=== PATIENT | male | born 1940 | race Caucasian/White ===

== ENCOUNTER 2016-09-28 10:48 | Inpatient (IN) | payer MEDICARE ==
[~2016-09-28] VITALS: Ht 177.8 cm; Wt 76.3 kg
[2016-09-28] MEDS ORDERED: SIMV20TA3 PO (11:50)
[2016-09-28] MEDS ORDERED: METO25TA4 PO (11:56)
[2016-09-28] MEDS ORDERED: ASPI81TA2 PO (11:57)
[2016-09-28 12:21] LABS: BASO % 0 % (0-3); EOS % 0 % (0-3); HEMATOCRIT 40.3 % (39.0-53.0); HEMOGLOBIN 13.3 g/dL (13.0-17.5); LYMPH # 0.4 x10^3/uL (1.0-4.8); LYMPH % 3 % (24-48); MEAN CORPUSCULAR HEMOGLOBIN 30 pg (25-35); MEAN CORPUSCULAR HGB CONC 33 g/dL (31-37); MEAN CORPUSCULAR VOLUME 92 fL (79-100); MONO % 1 % (0-9); NEUT % 96 % (31-73); PLATELET COUNT 162 x10^3/uL (140-400); RED BLOOD COUNT 4.39 x10^6/uL (4.30-5.70); RED CELL DISTRIBUTION WIDTH 13.2 % (11.5-14.5); WHITE BLOOD COUNT 14.2 x10^3/uL (4.0-11.0)
[2016-09-28 12:28] LABS: CALCIUM 9.2 mg/dL (8.5-10.1); CREATININE 1.2 mg/dL (0.7-1.3); GFR 59.3; POTASSIUM 3.6 mmol/L (3.5-5.1)
[2016-09-28 12:34] LABS: ALBUMIN 3.9 g/dL (3.4-5.0); TOTAL BILIRUBIN 2.2 mg/dL (0.2-1.0); TOTAL PROTEIN 7.7 g/dL (6.4-8.2)
--- NOTE | 2016-09-28 12:42 | EKG ---
[facility] [address] [place] [address] Test Date: 2016-09-28 Test Time: 11:36:43 Pat Name: BING ALVAREZ Department: Room: Gender: M [employer] T[employer]: : 1940 Requested By: HASEEB ACUÑA Order Number: [id number] Reading MD: Rito Reese Measurements Intervals [place] Rate: 74 P: 59 MS: 270 QRS: 48 QRSD: 76 T: 73 QT: 396 QTc: 440 Interpretive Statements SINUS RHYTHM PROLONGED MS INTERVAL Electronically Signed On 10-10-2016 12:06:35 CDT by Rito Reese
[2016-09-28] MEDS ORDERED: IV NORMAL SALINE 500ML BAG 500 ML IV ONE (12:45)
[2016-09-28] MEDS ORDERED: IOHEXOL 300 MG/ML 75 ML VIAL IV ONE (12:45)
[2016-09-28] MEDS ORDERED: ONDANSETRON PF 4 MG/2 ML VIAL. IV ONE (12:45)
[2016-09-28] MEDS ORDERED: FENTANYL PF 100 MCG/2 ML VIAL. IV PRN ×2 (12:45→15:15)
--- NOTE | 2016-09-28 12:48 | ED.ADGEN ---
Past Medical History Past Medical History: Constipation, High Cholesterol, Hypertension, Other Additional Past Medical Histor: sick sinus syndrome? Past Surgical History: Other Additional Past Surgical Histo: left shoulder, hernia Alcohol Use: None Drug Use: None Adult General Chief Complaint Chief Complaint: ABDOMINAL PAIN HPI HPI Patient is a 75 year old man, history of hypertension, hypercholesterolemia, GERD, who presents to the emergency department with a complaint of abdominal pain that began around 7:30 this morning. Patient states he first noted the pain when he woke up, describes it as a "pressure", and an aching sensation located in his epigastric region and radiating to the sides. He denies any chest pain or shortness of breath, any fevers or chills, any sick contacts or bad food exposures. He states that he had several episodes of nausea and vomiting, food and fluid, no bloody emesis or bloody stool. His last bowel was this morning and was "small". He states he ate some yogurt hoping that the pain would get better after eating, but this did not help, the pain is waxing and waning since that time. He denies any urinary complaints, any injuries, any similar symptoms previously. No recent travel, patient is status post cholecystectomy in 2011, and appendectomy many years ago. Review of Systems Review of Systems Constitutional: Denies fever or chills. [] Eyes: Denies change in visual acuity. [] HENT: Denies nasal congestion or sore throat. [] Respiratory: Denies cough or shortness of breath. [] Cardiovascular: Denies chest pain or edema. [] GI: Abdominal pain and pressure, nausea, vomiting, no bloody stools or diarrhea. : Denies dysuria. [] Musculoskeletal: Denies back pain or joint pain. [] Integument: Denies rash. [] Neurologic: Denies headache, focal weakness or sensory changes. [] Endocrine: Denies polyuria or polydipsia. [] Lymphatic: Denies swollen glands. [] Psychiatric: Denies depression or anxiety. [] Current Medications Current Medications Current Medications Medications (Trade) Dose Ordered Sig/Soo Start Time Stop Time Status Last Admin Dose Admin Ceftriaxone Sodium (Rocephin 1gm Ivpb For Omni) 50 ml @ 100 mls/hr 1X ONCE 09/28/16 14:30 09/28/16 14:59 DC 09/28/16 15:15 100 MLS/HR Fentanyl Citrate (Fentanyl 2ml Vial) 25 mcg PRN Q15MIN PRN 09/28/16 12:45 09/29/16 12:44 09/28/16 13:13 25 MCG Fentanyl Citrate 50 mcg 50 mcg PRN Q1HR PRN 09/28/16 15:15 09/29/16 15:14 Info 1 each 1 each PRN DAILY PRN 09/28/16 13:00 09/30/16 12:59 Iohexol (Omnipaque 300 Mg/ml) 60 ml 1X ONCE 09/28/16 12:45 09/28/16 12:46 DC 09/28/16 12:52 60 ML Metronidazole 100 ml @ 100 mls/hr 1X ONCE 09/28/16 14:30 09/28/16 15:29 DC 09/28/16 15:14 100 MLS/HR Ondansetron HCl (Zofran) 4 mg PRN Q8HRS PRN 09/28/16 15:15 09/29/16 15:14 Sodium Chloride (Iv Sodium Chloride 0.9% 500ml Bag) 500 ml @ 500 mls/hr 1X ONCE 09/28/16 12:45 09/28/16 13:44 DC 09/28/16 13:13 500 MLS/HR Sodium Chloride (Iv Sodium Chloride 0.9% 1000ml Bag) 1,000 ml @ 100 mls/hr Q10H 09/28/16 15:15 09/29/16 15:14 Allergies Allergies Allergies Coded Allergies Type Severity Reaction Last Updated Verified No Known Drug Allergies 09/28/16 No Physical Exam Physical Exam Constitutional: Well developed, well nourished, uncomfortable secondary to pain , non-toxic appearance. [] HENT: Normocephalic, atraumatic, bilateral external ears normal, oropharynx moist, no oral exudates, nose normal. [] Eyes: PERRLA, EOMI, conjunctiva normal, no discharge. [] Neck: Normal range of motion, no tenderness, supple, no stridor. [] Cardiovascular:Heart rate regular rhythm, no murmur, S1, S2, rubs or gallops. Soft heart sounds. [] Lungs & Thorax: Bilateral breath sounds clear to auscultation, no wheezing, rhonchi, rales. No chest wall crepitus or tenderness. [] Abdomen: Bowel sounds normal, soft, tenderness to palpation in the epigastric region and periumbilical region, no rebound or rigidity, no guarding, no masses , no pulsatile masses. [] Skin: Warm, dry, no erythema, no rash. [] Back: No tenderness, no CVA tenderness. [] Extremities: No tenderness, no cyanosis, no clubbing, ROM intact, no edema. Negative Homans sign. [] Neurologic: Alert and oriented X 3, normal motor function, normal sensory function, no focal deficits noted. [] Psychologic: Affect normal, judgement normal, mood normal. [] Current Patient Data Vital Signs Vital Signs Date Time Temp Pulse Resp B/P Pulse Ox O2 Delivery O2 Flow Rate FiO2 09/28/16 13:13 19 96 Room Air 09/28/16 11:42 97.7 75 141/63 97.7 Lab Values Laboratory Tests Test 09/28/16 11:41 09/28/16 13:15 09/28/16 13:20 White Blood Count 14.2x10^3/uL (4.0-11.0) H Red Blood Count 4.39x10^6/uL (4.30-5.70) Hemoglobin 13.3g/dL (13.0-17.5) Hematocrit 40.3% (39.0-53.0) Mean Corpuscular Volume 92fL (79-100) Mean Corpuscular Hemoglobin 30pg (25-35) Mean Corpuscular Hemoglobin Concent 33g/dL (31-37) Red Cell Distribution Width 13.2% (11.5-14.5) Platelet Count 162x10^3/uL (140-400) Neutrophils (%) (Auto) 96% (31-73) H Lymphocytes (%) (Auto) 3% (24-48) L Monocytes (%) (Auto) 1% (0-9) Eosinophils (%) (Auto) 0% (0-3) Basophils (%) (Auto) 0% (0-3) Neutrophils # (Auto) 13.6x10^3uL (1.8-7.7) H Lymphocytes # (Auto) 0.4x10^3/uL (1.0-4.8) L Monocytes # (Auto) 0.1x10^3/uL (0.0-1.1) Eosinophils # (Auto) 0.0x10^3/uL (0.0-0.7) Basophils # (Auto) 0.0x10^3/uL (0.0-0.2) Segmented Neutrophils % 74% (35-66) H Band Neutrophils % 25% (0-9) H Eosinophils % 1% (0-5) Platelet Estimate Adequate (ADEQUATE) Sodium Level 142mmol/L (136-145) Potassium Level 3.6mmol/L (3.5-5.1) Chloride Level 103mmol/L (98-107) Carbon Dioxide Level 27mmol/L (21-32) Anion Gap 12 (6-14) Blood Urea Nitrogen 18mg/dL (8-26) Creatinine 1.2mg/dL (0.7-1.3) Estimated GFR (Cockcroft-Gault) 59.3 BUN/Creatinine Ratio 15 (6-20) Glucose Level 132mg/dL (70-99) H Calcium Level 9.2mg/dL (8.5-10.1) Total Bilirubin 2.2mg/dL (0.2-1.0) H Aspartate Amino Transferase (AST) 347U/L (15-37) H Alanine Aminotransferase (ALT) 239U/L (16-63) H Alkaline Phosphatase 104U/L (46-116) Troponin I Quantitative < 0.017ng/mL (0.000-0.055) Total Protein 7.7g/dL (6.4-8.2) Albumin 3.9g/dL (3.4-5.0) Albumin/Globulin Ratio 1.0 (1.0-1.7) Lipase 230U/L (73-393) Lactic Acid Level 3.5mmol/L (0.4-2.0) H Urine Collection Type Unknown Urine Color Yellow Urine Clarity Clear Urine pH 7.5 Urine Specific [place] 1.025 Urine Protein Negativemg/dL (NEG-TRACE) Urine Glucose (UA) Negativemg/dL (NEG) Urine Ketones (Stick) Negativemg/dL (NEG) Urine Blood Negative (NEG) Urine Nitrite Negative (NEG) Urine Bilirubin Negative (NEG) Urine Urobilinogen Dipstick 0.2mg/dL (0.2 mg/dL) Urine Leukocyte Esterase Negative (NEG) Urine RBC 1-2/HPF (0-2) Urine WBC 0/HPF (0-4) Urine Squamous Epithelial Cells Occ/LPF Urine Bacteria 0/HPF (0-FEW) Urine Mucus Slight/LPF Urine Opiates Screen Neg (NEG) Urine Methadone Screen Neg (NEG) Urine Barbiturates Neg (NEG) Urine Phencyclidine Screen Neg (NEG) Urine Amphetamine/Methamphetamine Neg (NEG) Urine Benzodiazepines Screen Neg (NEG) Urine Cocaine Screen Neg (NEG) Urine Cannabinoids Screen Neg (NEG) Urine Ethyl Alcohol Neg (NEG) Laboratory Tests 09/28/16 11:41 Laboratory Tests 09/28/16 11:41 EKG EKG EC: Sinus rhythm, heart rate 74 bpm, upright axis, QTC of 440, MD 1-70, QRS is 76, no ST elevations or depressions, no evidence of acute ST abnormalities aside from slightly prolonged MD interval. As interpreted by me. Radiology/Procedures Radiology/Procedures [] [facility] [address] [place], [place] [id number] IMAGING REPORT Signed PATIENT: BING ALVAREZ ACCOUNT: [id number] : 1940 LOCATION: ER AGE: 75 SEX: M EXAM STATUS: REG ER ORD. PHYSICIAN: HASEEB ACUÑA DO REASON: abd pain/n/v PROCEDURE: CT ABD PELV W/ IV CONTRST ONLY CT of the abdomen and pelvis with contrast, 09/28/2016: History: Abdominal pain, nausea and vomiting Multidetector CT imaging was performed following an IV bolus injection of iodinated contrast material. No oral contrast material was administered as requested. Coronary artery calcifications are noted. The gallbladder is surgically absent. No hepatic mass is seen. There is considerable intrahepatic and extrahepatic biliary ductal dilatation. This was also evident on an MRCP study from 09/15/2011. The mid common bile duct currently measures approximately 21 mm in width. It measured 16 mm in width on the previous study. The common duct is dilated down into the pancreatic head to the level of the ampulla. No mass or dense common duct calculus is seen at that level. The pancreas is otherwise unremarkable. The spleen is of normal size. The kidneys show no evidence of obstruction or mass. There is moderate aortoiliac calcific plaquing without evidence of aneurysm. No abdominal or pelvic adenopathy is seen. There is a moderate amount of stool in the rectum. The other loops of large and small bowel are not dilated. There are a few scattered colonic diverticula. No paracolonic inflammatory process is seen. The appendix is not visualized. No dilated appendix is evident. No free fluid or free air is evident in the abdomen or pelvis. Moderate multilevel degenerative changes are present in the spine. There are severe degenerative changes at both hip joints. IMPRESSION: 1. Ongoing intrahepatic and extrahepatic biliary ductal dilatation which appears to have progressed slightly since 2011. No pancreatic head region mass or dense common bile duct calculus is seen. An occult distal common bile duct calculus or stricture cannot be excluded. 2. Colonic diverticulosis. 3. Mild fecal impaction the rectum. PQRS Compliance Statement: One or more of the following individualized dose reduction techniques were utilized for this examination: 1. Automated exposure control 2. Adjustment of the mA and/or kV according to patient size 3. Use of iterative reconstruction technique DICTATED and SIGNED BY: LIANNE TATE MD DATE: 09/28/16 3830 CC: HASEEB ACUÑA DO; JANAE GONGORA MD ~ Course & Med Decision Making Course & Med Decision Making Pertinent Labs and Imaging studies reviewed. (See chart for details) Patient agreeable to receiving CT of abdomen and pelvis, along with laboratory studies, antiemetics and pain medication. CT of abdomen and pelvis reveals a possible occult distal common bile duct calculus or stricture. Patient also noted to have elevated LFTs, with a bilirubin of 2.2. Patient with leukocytosis of 14.2, with a bandemia of 25%. No other source of infection or other concerning findings identified, he remains afebrile, with stable vital signs in the emergency department. Findings as above discussed with Emma, nurse practitioner for Dr. Hunt, who relayed this information to Dr. Hunt as he was in a procedure. Dr. Hunt recommends the patient to undergo an MRCP, the patient does not have any contraindications, patient is agreeable for addition to the hospital for continued antiemetics, IV fluids, analgesia, due to patient' s bandemia, antibiotics also started prophylactically with blood cultures pending. Findings as above discussed with Dr. Koehler, call for the patient's primary care provider, who is in agreement with plan as stated above, patient accepted to his service as a full admission to the medical telemetry floor for monitoring and plan as above, will continue with course as stated, bridge orders entered per discussion. Dragon Disclaimer Dragon Disclaimer This electronic medical record was generated, in whole or in part, using a voice recognition dictation system. Departure Impression: Primary Impression: Abdominal pain Disposition: ADMITTED INPATIENT Admitting Physician: Bello Koehler Condition: IMPROVED HASEEB ACUÑA DO Sep 28, 2016 12:48
[2016-09-28 12:54] LABS: % EOS 1 % (0-5)
[2016-09-28 12:55] LABS: PLT ESTIMATE ADEQUATE (ADEQUATE)
[2016-09-28] MEDS ORDERED: CONTRAST GIVEN MC PRN (13:00)
--- NOTE | 2016-09-28 13:33 | RAD ---
CT of the abdomen and pelvis with contrast, 09/28/2016: History: Abdominal pain, nausea and vomiting Multidetector CT imaging was performed following an IV bolus injection of iodinated contrast material. No oral contrast material was administered as requested. Coronary artery calcifications are noted. The gallbladder is surgically absent. No hepatic mass is seen. There is considerable intrahepatic and extrahepatic biliary ductal dilatation. This was also evident on an MRCP study from 09/15/2011. The mid common bile duct currently measures approximately 21 mm in width. It measured 16 mm in width on the previous study. The common duct is dilated down into the pancreatic head to the level of the ampulla. No mass or dense common duct calculus is seen at that level. The pancreas is otherwise unremarkable. The spleen is of normal size. The kidneys show no evidence of obstruction or mass. There is moderate aortoiliac calcific plaquing without evidence of aneurysm. No abdominal or pelvic adenopathy is seen. There is a moderate amount of stool in the rectum. The other loops of large and small bowel are not dilated. There are a few scattered colonic diverticula. No paracolonic inflammatory process is seen. The appendix is not visualized. No dilated appendix is evident. No free fluid or free air is evident in the abdomen or pelvis. Moderate multilevel degenerative changes are present in the spine. There are severe degenerative changes at both hip joints. IMPRESSION: 1. Ongoing intrahepatic and extrahepatic biliary ductal dilatation which appears to have progressed slightly since 2011. No pancreatic head region mass or dense common bile duct calculus is seen. An occult distal common bile duct calculus or stricture cannot be excluded. 2. Colonic diverticulosis. 3. Mild fecal impaction the rectum. PQRS Compliance Statement: One or more of the following individualized dose reduction techniques were utilized for this examination: 1. Automated exposure control 2. Adjustment of the mA and/or kV according to patient size 3. Use of iterative reconstruction technique
[2016-09-28 13:48] LABS: BILIRUBIN,URINE NEGATIVE (NEG); GLUCOSE,URINE NEGATIVE (NEG); NITRITE,URINE NEGATIVE (NEG); PH,URINE 7.5; PROTEIN,URINE NEGATIVE (NEG-TRACE); UROBILINOGEN,URINE 0.2 mg/dL (0.2 mg/dL)
[2016-09-28 13:52] LABS: BARBITURATES NEG (NEG); BENZODIAZEPINES NEG (NEG); CANNABINOIDS NEG (NEG); COCAINE NEG (NEG); METHADONE NEG (NEG); OPIATES NEG (NEG); PHENCYCLIDINE NEG (NEG)
[2016-09-28 13:53] LABS: ETHANOL, URINE NEG (NEG)
[2016-09-28 14:06] LABS: BACTERIA,URINE 0 /HPF (0-FEW); SQUAMOUS EPITHELIAL CELL,UR OCC /LPF; WBC,URINE 0 /HPF (0-4)
[2016-09-28] MEDS ORDERED: CEFTRIAXONE 1GM IVPB FOR OMNI 50 ML IV ONE (14:30)
[2016-09-28] MEDS ORDERED: METRONIDAZOLE 500mg PREMIX 100 ML IV ONE (14:30)
[2016-09-28] MEDS ORDERED: ONDANSETRON PF 4 MG/2 ML VIAL. IV PRN (15:15)
--- NOTE | 2016-09-28 18:13 | ACF ---
Admission Forms Criteria ABDOMINAL PAIN Clinical Indications for Admission to Inpatient Care (Place 'X' for any and all applicable criteria): Admission is indicated for ANY ONE of the following(1)(2)(3)(4)(5): [X]I. Inpatient admission required rather than observation care (Also use Abdominal Pain: Observation Care, as appropriate) because of ANY ONE of the following: [ ]a) Severe pain requiring acute inpatient management [X]b) Identification of etiology/finding that requires inpatient care (eg, aortic dissection, free air) [ ]c) Absent bowel sounds with complete ileus(6) [ ]d) Suspected toxic megacolon [ ]e) Severe electrolyte abnormalities requiring inpatient care [ ]f) High fever or infection requiring inpatient admission as indicated by ANY ONE of following(7)(8): [ ] i) Appropriate outpatient or observational care antimicrobial treatment unavailable, not effective, or not feasible [ ] ii) Documented bacteremia [ ] iii) Temperature > 104.9 degrees F (oral) [ ] iv) T >103.1 F (oral) or < 96.8 F(rectal) that does not respond to all emergency treatment measures [ ]g) Signs of intestinal obstruction [B] [ ]h) Hemodynamic instability [ ]i) IV fluid to replace significant ongoing losses (greater than 3 L/m2 per day) (12)(13) [ ]j) Percutaneous or open drainage (eg, abscess, biliary tract ) procedures [ ]k) Parenteral nutrition regimen that must be implemented on inpatient basis [ ]l) Other condition,treatment or monitoring requiring inpatient admission. [ ]II. Peritoneal signs present [ ]III. Surgery needed that cannot be performed on an ambulatory basis. [ ]IV. Evaluation requires patient to not eat or drink for extended period ( eg, more than 24 hours). [ ]V. Contraindications and/or Inappropriate clinical situations for Observational Care in patients with abdominal pain, when ANY ONE of the following is required: [ ]a) Thorough evaluation is required to prevent catastrophic events due to delays in diagnosing (e.g.Mesenteric ischemia) 1,3 [ ]b) Patient with severe pathology or with chronic symptoms unlikely to improve in the ED stay (3) [ ]. General contraindications and/or Inappropriate clinical situations for Observational Care in patients with abdominal pain, when ANY ONE of the following is required: [ ]a) Prediction of prolongation of LOS based on ANY ONE of the following may be considered as a contraindication for observational care 2, 3, 4, 5, 6, 7, 8, 9, 10, 11 [ ]i) Age > 65 yrs. [ ]ii) Patient arriving by ambulance [ ]iii) Patient with high acuity [ ]iv) Patient requiring vital sign monitoring [ ]v) Patient on IV medication [ ]b) Systolic blood pressures 180mmHg 3,12 [ ]c) Patient with altered mental status including delirium and other alteration of consciousness, (3) [ ]d) Patient whose discharge disposition will be to a prison home or rehabilitation home should not be managed in Emergency Department Observation Unit. CMS rule requires 3 days hospital stay before such placement.3,13 [ ]e) Patient with failure to thrive due to broad array of etiologies 3,16,17 [ ]f) Inability to ambulate 3,14 Extended stay beyond goal length of stay may be needed for(2)(3): [ ]a) Persistent abdominal pain with suspected intra-abdominal process [ ]b) Diagnosed condition requiring continued stay (e.g., pancreatitis, complicated diverticulitis) [ ]c) Surgery (e.g., colectomy) The original [facility] content created by [employer] has been revised. The portions of the content which have been revised are identified through the use of italic text or in bold, and [facility] has neither reviewed nor approved the modified material.All other unmodified content is copyright [employer]. Please see references footnoted in the original [facility] edition 2016 Admission Criteria Met?: Yes SHAYY PADILLA Sep 28, 2016 18:13
[2016-09-28 19:00] VITALS: BP 104/45
[2016-09-28] MEDS: METOPROLOL TART IMMED RELEASE 25 MG TABLET. PO SCH (21:00)
[2016-09-28] MEDS: IV NORMAL SALINE 1000ML BAG 1,000 ML IV SCH (21:14)
[2016-09-28] MEDS: METRONIDAZOLE 500mg PREMIX 100 ML IV SCH (21:15)
--- NOTE | 2016-09-28 22:12 | HP ---
ADMIT DATE: 09/28/2016 ADMISSION DIAGNOSES: Abdominal pain, nausea, and vomiting. HISTORY OF PRESENT ILLNESS: This is a 75-year-old white male, who presented to the Emergency Room after developing colicky abdominal pain that started out in his flanks and then kind of built into the middle part of his abdomen and then up into his chest. It was associated with nausea and vomiting. He denies diaphoresis. He was brought to the Emergency Room by private vehicle. He sat in the waiting room area for, he states, a couple of hours waiting for treatment and his acute pain resolved. He had not had any further chest pain. He had not had any pulmonary symptoms. He felt better after a bowel movement. Imaging studies once done did reveal a dilated intrahepatic and extrahepatic biliary ductal changes, which have progressed since 2011. No definite mass was noted. He is status post cholecystectomy and his appendix was not visualized. Some diverticula were noted. His labs showed a white count of 14.2, but he was afebrile. His liver enzymes were elevated consistent with some obstruction. His lactic acid was elevated suggestive of sepsis. His urine was clear though without any bilirubin. No evidence of infection. His drug screen was negative. PAST MEDICAL HISTORY: Significant for hypertension, hyperlipidemia, GERD, and constipation. PAST SURGICAL HISTORY: Include cholecystectomy, appendectomy, and left shoulder and hernia repair. SOCIAL HISTORY: Negative for tobacco or alcohol use. FAMILY HISTORY: Noncontributory. ALLERGIES: He has no known drug allergies. HOME MEDICATIONS: Include aspirin 81 mg daily, metoprolol 25 mg b.i.d., and simvastatin 20 mg daily. REVIEW OF SYSTEMS: CARDIAC: Negative for chest pain. PULMONARY: Negative for cough or pulmonary symptoms. GASTROINTESTINAL: As above. GENITOURINARY: Negative. MUSCULOSKELETAL: Negative. SKIN: Negative. NEUROLOGIC: Negative. CONSTITUTIONAL: No fever. No weight loss. PHYSICAL EXAMINATION: VITAL SIGNS: Stable. He is afebrile. Blood pressure has been as low as 89/54, as high as 110/54. GENERAL: He is not in any acute distress. He is alert and oriented. HEENT: Unremarkable. There is no scleral icterus. There is no sinus congestion. NECK: Supple. CARDIOVASCULAR: Heart is regular rate and rhythm without murmur. LUNGS: Clear to auscultation. ABDOMEN: Soft, nondistended. There is no tenderness in the epigastric area or else in the abdomen. There is no hepatosplenomegaly. Bowel sounds are present. EXTREMITIES: There is no clubbing, cyanosis, or peripheral edema. SKIN: Has normal turgor and normal color. There is no jaundice. NEUROLOGICAL: He is intact and strength hogan, he appears normal. IMAGING STUDIES: CT abdomen and pelvis shows the [id number] biliary ductal dilatation. No definite mass is seen. A distal common bile duct calculus or stricture cannot be excluded and is quite likely. There is colonic diverticulosis and there is a small fecal impaction in the rectum at the time of the scan. LABORATORY DATA: Showed a white count of 14.2, otherwise normal CBC. His glucose is a little high at 132. Lactic acid is significantly elevated at 3.5, total bilirubin 2.2, AST 347, ALT 239, alkaline phosphatase is normal at 104, though his troponin is normal. Amylase, lipase, and albumin are normal. Urinalysis is unremarkable other than a pH of 7.5. There is no bilirubin present. Tox screen is negative. ASSESSMENT: Acute colicky abdominal pain appears to be secondary to common duct dysfunction with abnormal liver enzymes, suspicious for a stricture. PLAN: He is admitted. MRCP is ordered. GI is to see him; he does not appear to be a surgical candidate. He will likely need an ERCP. His pain is currently controlled. Home meds will be continued. Reynaldo EDDY MD DR: ANGELA/nicole JOB#: [id number] / [id number]
[2016-09-28 23:07] VITALS: BP 102/47
[2016-09-29] VITALS (11 sets, daily range): BP systolic 100–130; BP diastolic 42–65
[2016-09-29] MEDS: IV NORMAL SALINE 1000ML BAG 1,000 ML IV SCH ×2 (01:15→08:53)
[2016-09-29] MEDS: METRONIDAZOLE 500mg PREMIX 100 ML IV SCH ×3 (06:20→20:30)
[2016-09-29 07:13] LABS: BASO % 0 % (0-3); EOS % 0 % (0-3); HEMOGLOBIN 11.2 g/dL (13.0-17.5); LYMPH # 0.4 x10^3/uL (1.0-4.8); LYMPH % 3 % (24-48); MEAN CORPUSCULAR HEMOGLOBIN 30 pg (25-35); MEAN CORPUSCULAR HGB CONC 33 g/dL (31-37); MEAN CORPUSCULAR VOLUME 93 fL (79-100); MONO % 6 % (0-9); NEUT % 91 % (31-73); PLATELET COUNT 120 x10^3/uL (140-400); RED BLOOD COUNT 3.66 x10^6/uL (4.30-5.70); RED CELL DISTRIBUTION WIDTH 13.6 % (11.5-14.5); WHITE BLOOD COUNT 16.6 x10^3/uL (4.0-11.0)
[2016-09-29 07:26] LABS: ALBUMIN 3.2 g/dL (3.4-5.0); ALBUMIN/GLOBULIN RATIO 1.1 (1.0-1.7); CALCIUM 8.2 mg/dL (8.5-10.1); CREATININE 1.1 mg/dL (0.7-1.3); GFR 65.6; POTASSIUM 3.7 mmol/L (3.5-5.1); TOTAL BILIRUBIN 4.2 mg/dL (0.2-1.0)
[2016-09-29] MEDS: METOPROLOL TART IMMED RELEASE 25 MG TABLET. PO SCH ×2 (09:00→21:00)
[2016-09-29] MEDS: ASPIRIN CHEWABLE 81 MG TABLET. PO SCH (09:00)
[2016-09-29] MEDS ORDERED: SIMVASTATIN 20 MG TABLET PO SCH (09:00)
--- NOTE | 2016-09-29 12:43 | PDOC2 ---
CONSULT Date of Consult Date of Consult DATE: 09/29/16 TIME: 12:41 Reason for Consult Reason for Consult: Obstructive jaundice S/P katy Current Problem List Problem List Problems Medical Problems: (1) Abdominal pain Status: Acute Current Medications Current Medications Current Medications Sodium Chloride (Iv Sodium Chloride 0.9% 500ml Bag) 500 ml @ 500 mls/hr 1X ONCE IV Last administered on 09/28/16 13:13; Start 09/28/16 at 12:45; Stop at 13:44; Status DC Ondansetron HCl (Zofran) 4 mg 1X ONCE IV Last administered on 09/28/16 13:08 ; Start 09/28/16 at 12:45; Stop 09/28/16 at 12:46; Status DC Fentanyl Citrate (Fentanyl 2ml Vial) 25 mcg PRN Q15MIN PRN IV PAIN GREATER THAN 3/10 Last administered on 09/28/16 13:13; Start 09/28/16 at 12:45; Stop at 12:44 Iohexol (Omnipaque 300 Mg/ml) 60 ml 1X ONCE IV Last administered on 09/28/16 12:52; Start 09/28/16 at 12:45; Stop 09/28/16 at 12:46; Status DC Info 1 each 1 each PRN DAILY PRN MC SEE COMMENTS; Start 09/28/16 at 13:00; Stop 09/30/16 at 12:59 Metronidazole 100 ml @ 100 mls/hr Q8HRS IV Last administered on 09/29/16 06: 20; Start 09/28/16 at 22:00 Metronidazole 100 ml @ 100 mls/hr 1X ONCE IV Last administered on 09/28/16 15:14; Start 09/28/16 at 14:30; Stop 09/28/16 at 15:29; Status DC Ceftriaxone Sodium 50 ml @ 100 mls/hr 1X ONCE IV Last administered on 15:15; Start 09/28/16 at 14:30; Stop 09/28/16 at 14:59; Status DC Ceftriaxone Sodium/Sodium Chloride (Rocephin/Iv Sodium Chloride 0.9% 50ml) 50 ml @ 100 mls/hr Q24H IV ; Start 09/29/16 at 15:00 Ondansetron HCl (Zofran) 4 mg PRN Q8HRS PRN IV NAUSEA/VOMITING; Start 09/28/16 at 15:15; Stop 09/29/16 at 15:14 Fentanyl Citrate 50 mcg 50 mcg PRN Q1HR PRN IV PAIN; Start 09/28/16 at 15:15; Stop 09/29/16 at 15:14 Sodium Chloride (Iv Sodium Chloride 0.9% 1000ml Bag) 1,000 ml @ 100 mls/hr Q10H IV Last administered on 09/29/16t 08:53; Start 09/28/16 at 15:15; Stop at 15:14 Aspirin (Children'S Aspirin) 81 mg DAILY PO ; Start 09/29/16 at 09:00 Metoprolol Tartrate (Lopressor) 25 mg BID PO ; Start 09/28/16 at 21:00 Simvastatin (Zocor) 20 mg DAILY PO ; Start 09/29/16 at 09:00 Active Scripts Active Reported Aspirin 81 Mg Tab.chew 1 Tab PO DAILY Metoprolol Tartrate 25 Mg Tablet 25 Mg PO DAILY Simvastatin 20 Mg Tablet 40 Mg PO HS Allergies Allergies: Coded Allergies: No Known Drug Allergies (Unverified , 09/28/16) Vitals VITALS Vital Signs Date Time Temp Pulse Resp B/P Pulse Ox O2 Delivery O2 Flow Rate FiO2 09/29/16 10:43 97.7 58 20 100/42 98 Room Air 97.7 Labs Labs Laboratory Tests Test 09/28/16 11:41 09/28/16 13:15 09/28/16 13:20 09/29/16 06:35 White Blood Count 14.2x10^3/uL (4.0-11.0) 16.6x10^3/uL (4.0-11.0) Red Blood Count 4.39x10^6/uL (4.30-5.70) 3.66x10^6/uL (4.30-5.70) Hemoglobin 13.3g/dL (13.0-17.5) 11.2g/dL (13.0-17.5) Hematocrit 40.3% (39.0-53.0) 34.0% (39.0-53.0) Mean Corpuscular Volume 92fL (79-100) 93fL (79-100) Mean Corpuscular Hemoglobin 30pg (25-35) 30pg (25-35) Mean Corpuscular Hemoglobin Concent 33g/dL (31-37) 33g/dL (31-37) Red Cell Distribution Width 13.2% (11.5-14.5) 13.6% (11.5-14.5) Platelet Count 162x10^3/uL (140-400) 120x10^3/uL (140-400) Neutrophils (%) (Auto) 96% (31-73) 91% (31-73) Lymphocytes (%) (Auto) 3% (24-48) 3% (24-48) Monocytes (%) (Auto) 1% (0-9) 6% (0-9) Eosinophils (%) (Auto) 0% (0-3) 0% (0-3) Basophils (%) (Auto) 0% (0-3) 0% (0-3) Neutrophils # (Auto) 13.6x10^3uL (1.8-7.7) 15.1x10^3uL (1.8-7.7) Lymphocytes # (Auto) 0.4x10^3/uL (1.0-4.8) 0.4x10^3/uL (1.0-4.8) Monocytes # (Auto) 0.1x10^3/uL (0.0-1.1) 1.0x10^3/uL (0.0-1.1) Eosinophils # (Auto) 0.0x10^3/uL (0.0-0.7) 0.0x10^3/uL (0.0-0.7) Basophils # (Auto) 0.0x10^3/uL (0.0-0.2) 0.0x10^3/uL (0.0-0.2) Segmented Neutrophils % 74% (35-66) Band Neutrophils % 25% (0-9) Eosinophils % 1% (0-5) Platelet Estimate Adequate (ADEQUATE) Sodium Level 142mmol/L (136-145) 143mmol/L (136-145) Potassium Level 3.6mmol/L (3.5-5.1) 3.7mmol/L (3.5-5.1) Chloride Level 103mmol/L (98-107) 105mmol/L (98-107) Carbon Dioxide Level 27mmol/L (21-32) 25mmol/L (21-32) Anion Gap 12 (6-14) 13 (6-14) Blood Urea Nitrogen 18mg/dL (8-26) 19mg/dL (8-26) Creatinine 1.2mg/dL (0.7-1.3) 1.1mg/dL (0.7-1.3) Estimated GFR (Cockcroft-Gault) 59.3 65.6 BUN/Creatinine Ratio 15 (6-20) 17 (6-20) Glucose Level 132mg/dL (70-99) 89mg/dL (70-99) Calcium Level 9.2mg/dL (8.5-10.1) 8.2mg/dL (8.5-10.1) Total Bilirubin 2.2mg/dL (0.2-1.0) 4.2mg/dL (0.2-1.0) Aspartate Amino Transf (AST/SGOT) 347U/L (15-37) 221U/L (15-37) Alanine Aminotransferase (ALT/SGPT) 239U/L (16-63) 245U/L (16-63) Alkaline Phosphatase 104U/L (46-116) 97U/L (46-116) Troponin I Quantitative < 0.017ng/mL (0.000-0.055) Total Protein 7.7g/dL (6.4-8.2) 6.0g/dL (6.4-8.2) Albumin 3.9g/dL (3.4-5.0) 3.2g/dL (3.4-5.0) Albumin/Globulin Ratio 1.0 (1.0-1.7) 1.1 (1.0-1.7) Lipase 230U/L (73-393) Lactic Acid Level 3.5mmol/L (0.4-2.0) Urine Collection Type Unknown Urine Color Yellow Urine Clarity Clear Urine pH 7.5 Urine Specific [place] 1.025 Urine Protein Negativemg/dL (NEG-TRACE) Urine Glucose (UA) Negativemg/dL (NEG) Urine Ketones (Stick) Negativemg/dL (NEG) Urine Blood Negative (NEG) Urine Nitrite Negative (NEG) Urine Bilirubin Negative (NEG) Urine Urobilinogen Dipstick 0.2mg/dL (0.2 mg/dL) Urine Leukocyte Esterase Negative (NEG) Urine RBC 1-2/HPF (0-2) Urine WBC 0/HPF (0-4) Urine Squamous Epithelial Cells Occ/LPF Urine Bacteria 0/HPF (0-FEW) Urine Mucus Slight/LPF Urine Opiates Screen Neg (NEG) Urine Methadone Screen Neg (NEG) Urine Barbiturates Neg (NEG) Urine Phencyclidine Screen Neg (NEG) Urine Amphetamine/Methamphetamine Neg (NEG) Urine Benzodiazepines Screen Neg (NEG) Urine Cocaine Screen Neg (NEG) Urine Cannabinoids Screen Neg (NEG) Urine Ethyl Alcohol Neg (NEG) Laboratory Tests Test 09/28/16 13:15 09/28/16 13:20 09/29/16 06:35 Lactic Acid Level 3.5mmol/L (0.4-2.0) Urine Collection Type Unknown Urine Color Yellow Urine Clarity Clear Urine pH 7.5 Urine Specific [place] 1.025 Urine Protein Negativemg/dL (NEG-TRACE) Urine Glucose (UA) Negativemg/dL (NEG) Urine Ketones (Stick) Negativemg/dL (NEG) Urine Blood Negative (NEG) Urine Nitrite Negative (NEG) Urine Bilirubin Negative (NEG) Urine Urobilinogen Dipstick 0.2mg/dL (0.2 mg/dL) Urine Leukocyte Esterase Negative (NEG) Urine RBC 1-2/HPF (0-2) Urine WBC 0/HPF (0-4) Urine Squamous Epithelial Cells Occ/LPF Urine Bacteria 0/HPF (0-FEW) Urine Mucus Slight/LPF Urine Opiates Screen Neg (NEG) Urine Methadone Screen Neg (NEG) Urine Barbiturates Neg (NEG) Urine Phencyclidine Screen Neg (NEG) Urine Amphetamine/Methamphetamine Neg (NEG) Urine Benzodiazepines Screen Neg (NEG) Urine Cocaine Screen Neg (NEG) Urine Cannabinoids Screen Neg (NEG) Urine Ethyl Alcohol Neg (NEG) White Blood Count 16.6x10^3/uL (4.0-11.0) Red Blood Count 3.66x10^6/uL (4.30-5.70) Hemoglobin 11.2g/dL (13.0-17.5) Hematocrit 34.0% (39.0-53.0) Mean Corpuscular Volume 93fL (79-100) Mean Corpuscular Hemoglobin 30pg (25-35) Mean Corpuscular Hemoglobin Concent 33g/dL (31-37) Red Cell Distribution Width 13.6% (11.5-14.5) Platelet Count 120x10^3/uL (140-400) Neutrophils (%) (Auto) 91% (31-73) Lymphocytes (%) (Auto) 3% (24-48) Monocytes (%) (Auto) 6% (0-9) Eosinophils (%) (Auto) 0% (0-3) Basophils (%) (Auto) 0% (0-3) Neutrophils # (Auto) 15.1x10^3uL (1.8-7.7) Lymphocytes # (Auto) 0.4x10^3/uL (1.0-4.8) Monocytes # (Auto) 1.0x10^3/uL (0.0-1.1) Eosinophils # (Auto) 0.0x10^3/uL (0.0-0.7) Basophils # (Auto) 0.0x10^3/uL (0.0-0.2) Sodium Level 143mmol/L (136-145) Potassium Level 3.7mmol/L (3.5-5.1) Chloride Level 105mmol/L (98-107) Carbon Dioxide Level 25mmol/L (21-32) Anion Gap 13 (6-14) Blood Urea Nitrogen 19mg/dL (8-26) Creatinine 1.1mg/dL (0.7-1.3) Estimated GFR (Cockcroft-Gault) 65.6 BUN/Creatinine Ratio 17 (6-20) Glucose Level 89mg/dL (70-99) Calcium Level 8.2mg/dL (8.5-10.1) Total Bilirubin 4.2mg/dL (0.2-1.0) Aspartate Amino Transf (AST/SGOT) 221U/L (15-37) Alanine Aminotransferase (ALT/SGPT) 245U/L (16-63) Alkaline Phosphatase 97U/L (46-116) Total Protein 6.0g/dL (6.4-8.2) Albumin 3.2g/dL (3.4-5.0) Albumin/Globulin Ratio 1.1 (1.0-1.7) Assessment/Plan Assessment/Plan Obstructive jaundice- S/p katy, differential of retained CBD stone, malignancy , cholestasis of sepsis, viral hepatitis, and/or cholangitis. Plan serial LFTS MRCP antibiotics with rising WBC possible ERCP pending above Full note dictated NICOLÁS OBRIEN MD Sep 29, 2016 12:43
--- NOTE | 2016-09-29 14:40 | CONS ---
DATE OF CONSULTATION: 09/29/2016 REASON FOR CONSULTATION: Jaundice, status post cholecystectomy. HISTORY OF PRESENT ILLNESS: This is a 75-year-old male with past medical history significant for hypertension, hyperlipidemia, gastroesophageal reflux disease, status post cholecystectomy, appendectomy, left shoulder repair, hernia repair who is admitted at [facility] with epigastric abdominal pain, which lasted several hours. In the Emergency Room, CT scan did reveal dilatation of the extrahepatic biliary tree as well as elevated liver function tests. Despite resolution of pain, total bilirubin has gone from ____ presently is pending to assess for additionally allergies, malignancy, pseudocyst or other possibility. He denies any recent exposure to viral hepatitis, has no risk factors for pancreatitis. At this time, he has been in good health. PAST MEDICAL HISTORY: Hypertension, hyperlipidemia, reflux, constipation, status post cholecystectomy, appendectomy, left shoulder, hernia repair. SOCIAL HISTORY: Nonsmoker, nondrinker. FAMILY HISTORY: Noncontributory. ALLERGIES: He has no allergies. MEDICATIONS: Include ceftriaxone, simvastatin, aspirin, metronidazole and Lopressor. REVIEW OF SYSTEMS: Per records. PHYSICAL EXAMINATION: GENERAL: Reveals a jaundiced white male who is alert, cooperative, in no acute distress. VITAL SIGNS: Temperature 97.7, pulse 68, respiratory rate 20, blood pressure is 100/42. HEENT: Normocephalic and atraumatic head. Pupils and extraocular muscles not tested. Sclerae are icteric. NECK: Supple. LUNGS: Clear. CARDIOVASCULAR: Reveals an S1, S2, without S3, S4 or appreciable murmur. ABDOMEN: Soft abdomen, normal bowel sounds, without appreciable hepatosplenomegaly. Epigastric tenderness to deep palpation. EXTREMITIES: Reveals no cyanosis, clubbing, edema. LABORATORY STUDIES: Sodium 148, potassium 3.0, chloride 105, bicarbonate 25, BUN 19, creatinine 1.1, glucose is 89. Lactate was 3.5, calcium is 8.2, total bilirubin of 4.2, AST of 221, ALT of 245, alkaline phosphatase 97, total protein ____, lipase is 230. Hemoglobin is 11.2, hematocrit ____, white count 16.6, platelet count is 120,000. IMPRESSION: Obstructive jaundice, status post cholecystectomy. Differential does include cholestasis, sepsis, cholangitis of retained common duct stone, malignancy, viral hepatitis and/or cirrhosis certainly possible as well. Therefore, I recommend await the MRCP, liver function tests, antibiotics. We will tentatively plan for an ERCP, ____ extraction, stent placement, ____ MRCP results. Risks and benefits discussed with the patient ____ perforations of pancreatitis, he and family willing to proceed. I would like thank Dr. Koehler for allowing us to consult and participate in this patient's care. NICOLÁS OBRIEN MD DR: MEGAN/nicole JOB#: [id number] / [id number] Reynaldo Quispe MD
[2016-09-29] MEDS ORDERED: IV RINGERS,LACTATED 1000ML 1,000 ML IV SCH (14:57)
--- NOTE | 2016-09-29 16:01 | RAD ---
MRI of the abdomen without contrast to include a MRCP 09/29/2016 Clinical history: Elevated liver function tests with abdominal pain. Technique: Unenhanced in and out of phase T1-weighted axial, T2-weighted axial and coronal and fat saturated T2-weighted axial and coronal images of the abdomen were obtained. Thin section fat-saturated T2-weighted coronal images through the abdomen were obtained. Multiplanar 3-D map images of the biliary system were generated for a MRCP. Findings: Comparison is made to the patient's CT scan of the abdomen dated 09/28/2016. Additional comparison is made to the patient's previous MRCP dated 09/15/2011. Intra and extrahepatic biliary ductal dilatation is again seen. The common bile duct measures 1.9 cm in diameter. These findings appear to have increased slightly in size since the previous MRCP study. The common bile duct at that time measured 1.7 cm in greatest diameter. No filling defect is seen within the biliary system. Pancreatic divisum is again noted. The gallbladder is not visualized consistent with a cholecystectomy. The dilated common bile duct extends to the level of the ampulla were it abruptly narrows. This finding is consistent with a stricture. This measures 5 mm in length. No focal abnormality of the liver is seen. The spleen, pancreas, adrenal glands and kidneys are within normal limits. The abdominal aorta tapers normally. No free fluid is seen within the abdomen. Minimal S shaped curvature of the thoracolumbar spine is seen. 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 There has been slight interval increase in the intra and extrahepatic biliary ductal dilatation since the patient's previous MRCP.
[2016-09-29] MEDS: CEFTRIAXONE SODIUM 1 GM in IV NORMAL SALINE 50ML 50 ML IV SCH (16:11)
[2016-09-29] MEDS ORDERED: LIDOCAINE 2% PF Vial for OR 5 ML VIAL. ONE (16:33)
[2016-09-29] MEDS ORDERED: SUCCINYLCHOLINE 200 MG/10 ML VIAL. ONE (16:33)
[2016-09-29] MEDS ORDERED: PROPOFOL 20 ML IV ONE (16:33)
[2016-09-29] MEDS ORDERED: DEXAMETHASONE SOD PHOS 4 MG/ML VIAL ONE (16:36)
[2016-09-29] MEDS ORDERED: ONDANSETRON PF 4 MG/2 ML VIAL. ONE (16:36)
[2016-09-29] MEDS ORDERED: IOHEXOL 300 MG/ML 50 ML VIAL. ONE (16:38)
[2016-09-29] MEDS ORDERED: IOHEXOL 300 MG/ML 50 ML VIAL. IV ONE (17:28)
--- NOTE | 2016-09-29 17:33 | PDOC4 ---
Operative Note Operative Note ERCP with brush cytology and stent placement Preston ACOSTA per anesthesia Pre-op dx obstructive jaundice/cholangitis/abnl MRCP post-op dx dilated proximal bile duct with distal stricture s/p brushing s/p 11.5 FR 13 cm stent placement Plan serial labs await cytology advance diet possible EUS as o/p NICOLÁS OBRIEN MD Sep 29, 2016 17:33
--- NOTE | 2016-09-29 18:34 | PDOC ---
PROGRESS NOTES Subjective Subjective Denies pain or overnight issues, awaiting MRCP and possible ERCP for suspected stricture of bile duct, he denies orange color to urine, he has some soreness of knee he attributes to overnight and AM rain Objective Objective Vital Signs Date Time Temp Pulse Resp B/P Pulse Ox O2 Delivery O2 Flow Rate FiO2 09/29/16 18:05 64 16 135/65 99 Room Air 09/29/16 17:50 8 09/29/16 17:35 98.9 98.9 Intake and Output 09/29/16 07:00 Intake Total 650 ml Output Total 200 ml Balance 450 ml Intake IV Total 650 ml Output Urine Total 200 ml Physical Exam Abdomen: Normal bowel sounds, Soft Heart: Regular rate Extremities: No clubbing, No cyanosis General: Oriented X3, Cooperative HEENT: Atraumatic, PERRLA Lungs: Clear to auscultation MUSCULOSKELETAL: No joint tenderness Neck: Supple Neuro: Normal speech, Strength at 5/5 X4 ext Psych/Mental Status: Mental status NL Skin: No breakdown Assessment Assessment Problems Medical Problems: (1) Abdominal pain, initially colicky with vasovagal response to pain, currently pain free (2) leukocytosis (3) abnormal LFT's consistent with obstruction (4) hypertension with hx of SSS - resume metoprolol, ASA when no longer NPO (5) hyperlipiemia - on statin but will hold due to increased LFTs (6) post traumatic osteoarthritis, 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 Labs Laboratory Tests Test 09/28/16 11:41 09/28/16 13:15 09/28/16 13:20 09/29/16 06:35 White Blood Count 14.2x10^3/uL (4.0-11.0) 16.6x10^3/uL (4.0-11.0) Red Blood Count 4.39x10^6/uL (4.30-5.70) 3.66x10^6/uL (4.30-5.70) Hemoglobin 13.3g/dL (13.0-17.5) 11.2g/dL (13.0-17.5) Hematocrit 40.3% (39.0-53.0) 34.0% (39.0-53.0) Mean Corpuscular Volume 92fL (79-100) 93fL (79-100) Mean Corpuscular Hemoglobin 30pg (25-35) 30pg (25-35) Mean Corpuscular Hemoglobin Concent 33g/dL (31-37) 33g/dL (31-37) Red Cell Distribution Width 13.2% (11.5-14.5) 13.6% (11.5-14.5) Platelet Count 162x10^3/uL (140-400) 120x10^3/uL (140-400) Neutrophils (%) (Auto) 96% (31-73) 91% (31-73) Lymphocytes (%) (Auto) 3% (24-48) 3% (24-48) Monocytes (%) (Auto) 1% (0-9) 6% (0-9) Eosinophils (%) (Auto) 0% (0-3) 0% (0-3) Basophils (%) (Auto) 0% (0-3) 0% (0-3) Neutrophils # (Auto) 13.6x10^3uL (1.8-7.7) 15.1x10^3uL (1.8-7.7) Lymphocytes # (Auto) 0.4x10^3/uL (1.0-4.8) 0.4x10^3/uL (1.0-4.8) Monocytes # (Auto) 0.1x10^3/uL (0.0-1.1) 1.0x10^3/uL (0.0-1.1) Eosinophils # (Auto) 0.0x10^3/uL (0.0-0.7) 0.0x10^3/uL (0.0-0.7) Basophils # (Auto) 0.0x10^3/uL (0.0-0.2) 0.0x10^3/uL (0.0-0.2) Segmented Neutrophils % 74% (35-66) Band Neutrophils % 25% (0-9) Eosinophils % 1% (0-5) Platelet Estimate Adequate (ADEQUATE) Sodium Level 142mmol/L (136-145) 143mmol/L (136-145) Potassium Level 3.6mmol/L (3.5-5.1) 3.7mmol/L (3.5-5.1) Chloride Level 103mmol/L (98-107) 105mmol/L (98-107) Carbon Dioxide Level 27mmol/L (21-32) 25mmol/L (21-32) Anion Gap 12 (6-14) 13 (6-14) Blood Urea Nitrogen 18mg/dL (8-26) 19mg/dL (8-26) Creatinine 1.2mg/dL (0.7-1.3) 1.1mg/dL (0.7-1.3) Estimated GFR (Cockcroft-Gault) 59.3 65.6 BUN/Creatinine Ratio 15 (6-20) 17 (6-20) Glucose Level 132mg/dL (70-99) 89mg/dL (70-99) Calcium Level 9.2mg/dL (8.5-10.1) 8.2mg/dL (8.5-10.1) Total Bilirubin 2.2mg/dL (0.2-1.0) 4.2mg/dL (0.2-1.0) Aspartate Amino Transf (AST/SGOT) 347U/L (15-37) 221U/L (15-37) Alanine Aminotransferase (ALT/SGPT) 239U/L (16-63) 245U/L (16-63) Alkaline Phosphatase 104U/L (46-116) 97U/L (46-116) Troponin I Quantitative < 0.017ng/mL (0.000-0.055) Total Protein 7.7g/dL (6.4-8.2) 6.0g/dL (6.4-8.2) Albumin 3.9g/dL (3.4-5.0) 3.2g/dL (3.4-5.0) Albumin/Globulin Ratio 1.0 (1.0-1.7) 1.1 (1.0-1.7) Lipase 230U/L (73-393) Lactic Acid Level 3.5mmol/L (0.4-2.0) Urine Collection Type Unknown Urine Color Yellow Urine Clarity Clear Urine pH 7.5 Urine Specific [place] 1.025 Urine Protein Negativemg/dL (NEG-TRACE) Urine Glucose (UA) Negativemg/dL (NEG) Urine Ketones (Stick) Negativemg/dL (NEG) Urine Blood Negative (NEG) Urine Nitrite Negative (NEG) Urine Bilirubin Negative (NEG) Urine Urobilinogen Dipstick 0.2mg/dL (0.2 mg/dL) Urine Leukocyte Esterase Negative (NEG) Urine RBC 1-2/HPF (0-2) Urine WBC 0/HPF (0-4) Urine Squamous Epithelial Cells Occ/LPF Urine Bacteria 0/HPF (0-FEW) Urine Mucus Slight/LPF Urine Opiates Screen Neg (NEG) Urine Methadone Screen Neg (NEG) Urine Barbiturates Neg (NEG) Urine Phencyclidine Screen Neg (NEG) Urine Amphetamine/Methamphetamine Neg (NEG) Urine Benzodiazepines Screen Neg (NEG) Urine Cocaine Screen Neg (NEG) Urine Cannabinoids Screen Neg (NEG) Urine Ethyl Alcohol Neg (NEG) Laboratory Tests Test 09/29/16 06:35 White Blood Count 16.6x10^3/uL (4.0-11.0) Red Blood Count 3.66x10^6/uL (4.30-5.70) Hemoglobin 11.2g/dL (13.0-17.5) Hematocrit 34.0% (39.0-53.0) Mean Corpuscular Volume 93fL (79-100) Mean Corpuscular Hemoglobin 30pg (25-35) Mean Corpuscular Hemoglobin Concent 33g/dL (31-37) Red Cell Distribution Width 13.6% (11.5-14.5) Platelet Count 120x10^3/uL (140-400) Neutrophils (%) (Auto) 91% (31-73) Lymphocytes (%) (Auto) 3% (24-48) Monocytes (%) (Auto) 6% (0-9) Eosinophils (%) (Auto) 0% (0-3) Basophils (%) (Auto) 0% (0-3) Neutrophils # (Auto) 15.1x10^3uL (1.8-7.7) Lymphocytes # (Auto) 0.4x10^3/uL (1.0-4.8) Monocytes # (Auto) 1.0x10^3/uL (0.0-1.1) Eosinophils # (Auto) 0.0x10^3/uL (0.0-0.7) Basophils # (Auto) 0.0x10^3/uL (0.0-0.2) Sodium Level 143mmol/L (136-145) Potassium Level 3.7mmol/L (3.5-5.1) Chloride Level 105mmol/L (98-107) Carbon Dioxide Level 25mmol/L (21-32) Anion Gap 13 (6-14) Blood Urea Nitrogen 19mg/dL (8-26) Creatinine 1.1mg/dL (0.7-1.3) Estimated GFR (Cockcroft-Gault) 65.6 BUN/Creatinine Ratio 17 (6-20) Glucose Level 89mg/dL (70-99) Calcium Level 8.2mg/dL (8.5-10.1) Total Bilirubin 4.2mg/dL (0.2-1.0) Aspartate Amino Transf (AST/SGOT) 221U/L (15-37) Alanine Aminotransferase (ALT/SGPT) 245U/L (16-63) Alkaline Phosphatase 97U/L (46-116) Total Protein 6.0g/dL (6.4-8.2) Albumin 3.2g/dL (3.4-5.0) Albumin/Globulin Ratio 1.1 (1.0-1.7) Microbiology 09/28/16 Blood Culture - Final, Complete Medications Current Medications Sodium Chloride (Iv Sodium Chloride 0.9% 500ml Bag) 500 ml @ 500 mls/hr 1X ONCE IV Last administered on 09/28/16 13:13; Start 09/28/16 at 12:45; Stop at 13:44; Status DC Ondansetron HCl (Zofran) 4 mg 1X ONCE IV Last administered on 09/28/16 13:08 ; Start 09/28/16 at 12:45; Stop 09/28/16 at 12:46; Status DC Fentanyl Citrate (Fentanyl 2ml Vial) 25 mcg PRN Q15MIN PRN IV PAIN GREATER THAN 3/10 Last administered on 09/28/16 13:13; Start 09/28/16 at 12:45; Stop at 12:44; Status DC Iohexol (Omnipaque 300 Mg/ml) 60 ml 1X ONCE IV Last administered on 09/28/16 12:52; Start 09/28/16 at 12:45; Stop 09/28/16 at 12:46; Status DC Info 1 each 1 each PRN DAILY PRN MC SEE COMMENTS; Start 09/28/16 at 13:00; Stop 09/30/16 at 12:59 Metronidazole 100 ml @ 100 mls/hr Q8HRS IV Last administered on 09/29/16 15: 08; Start 09/28/16 at 22:00 Metronidazole 100 ml @ 100 mls/hr 1X ONCE IV Last administered on 09/28/16 15:14; Start 09/28/16 at 14:30; Stop 09/28/16 at 15:29; Status DC Ceftriaxone Sodium 50 ml @ 100 mls/hr 1X ONCE IV Last administered on 15:15; Start 09/28/16 at 14:30; Stop 09/28/16 at 14:59; Status DC Ceftriaxone Sodium/Sodium Chloride (Rocephin/Iv Sodium Chloride 0.9% 50ml) 50 ml @ 100 mls/hr Q24H IV Last administered on 09/29/16 16:11; Start 09/29/16 at 15:00 Ondansetron HCl (Zofran) 4 mg PRN Q8HRS PRN IV NAUSEA/VOMITING; Start 09/28/16 at 15:15; Stop 09/29/16 at 15:14; Status DC Fentanyl Citrate 50 mcg 50 mcg PRN Q1HR PRN IV PAIN; Start 09/28/16 at 15:15; Stop 09/29/16 at 15:14; Status DC Sodium Chloride (Iv Sodium Chloride 0.9% 1000ml Bag) 1,000 ml @ 100 mls/hr Q10H IV Last administered on 09/29/16 08:53; Start 09/28/16 at 15:15; Stop at 15:14; Status DC Aspirin (Children'S Aspirin) 81 mg DAILY PO ; Start 09/29/16 at 09:00 Metoprolol Tartrate (Lopressor) 25 mg BID PO ; Start 09/28/16 at 21:00 Simvastatin 20 mg 20 mg DAILY PO ; Start 09/29/16 at 09:00 Lactated Ringer's 1,000 ml @ 50 mls/hr Q20H IV ; Start 09/29/16 at 14:57; Stop 09/30/16 at 02:56 Propofol (Diprivan) 20 ml @ As Directed STK-MED ONCE IV ; Start 09/29/16 at 16: 33; Stop 09/29/16 at 16:34; Status DC Lidocaine HCl (Lidocaine Pf 2% Vial) 5 ml STK-MED ONCE .ROUTE ; Start 09/29/16 at 16:33; Stop 09/29/16 at 16:34; Status DC Succinylcholine Chloride (Anectine) 200 mg STK-MED ONCE .ROUTE ; Start 09/29/16 at 16:33; Stop 09/29/16 at 16:34; Status DC Dexamethasone Sodium Phosphate (Decadron) 4 mg STK-MED ONCE .ROUTE ; Start 09/29 at 16:36; Stop 09/29/16 at 16:37; Status DC Ondansetron HCl (Zofran) 4 mg STK-MED ONCE .ROUTE ; Start 09/29/16 at 16:36; Stop 09/29/16 at 16:37; Status DC Iohexol (Omnipaque 300 Mg/ml) 50 ml STK-MED ONCE .ROUTE ; Start 09/29/16 at 16: 38; Stop 09/29/16 at 16:39; Status DC Iohexol (Omnipaque 300 Mg/ml) 50 ml STK-MED ONCE IV Last administered on t 17:28; Start 09/29/16 at 17:28; Stop 09/29/16 at 17:32; Status DC Active Scripts Active Reported Aspirin 81 Mg Tab.chew 1 Tab PO DAILY Metoprolol Tartrate 25 Mg Tablet 25 Mg PO DAILY Simvastatin 20 Mg Tablet 40 Mg PO HS Vitals/I & O Vital Sign - Last 24 Hours 09/28/16 09/28/16 09/28/16 09/28/16 18:45 19:00 19:00 20:00 Temp 97.6 97.6 Pulse 72 83 71 Resp 21 21 20 B/P 88/48 85/46 104/45 Pulse Ox 97 98 96 O2 Delivery Room Air Room Air Room Air 09/28/16 09/29/16 09/29/16 09/29/16 23:07 03:00 07:00 07:55 Temp 97.7 97.7 97.5 97.7 97.7 97.5 Pulse 70 58 62 Resp 20 20 18 B/P 102/47 106/52 118/50 Pulse Ox 98 94 99 O2 Delivery Room Air Room Air Room Air Room Air 09/29/16 09/29/16 09/29/16 09/29/16 10:43 16:34 17:35 17:50 Temp 97.7 98.7 98.9 97.7 98.7 98.9 Pulse 58 66 66 63 Resp 20 18 20 16 B/P 100/42 120/64 140/61 Pulse Ox 98 99 100 99 O2 Delivery Room Air Simple Mask Simple Mask O2 Flow Rate 8 8 09/29/16 18:05 Pulse 64 Resp 16 B/P 135/65 Pulse Ox 99 O2 Delivery Room Air Intake and Output 09/28/16 09/28/16 09/29/16 15:00 23:00 07:00 Intake Total 500 ml 150 ml Output Total 200 ml Balance 500 ml 150 ml -200 ml WARD EDDY MD Sep 29, 2016 18:34
--- NOTE | 2016-09-30 00:05 | OP ---
DATE OF SURGERY: 09/29/2016 PROCEDURE PERFORMED: Endoscopic retrograde cholangiopancreatography with cytology brushing and stent placement. PREOPERATIVE DIAGNOSES: Obstructive jaundice, biliary stricture on MRCP, status post katy. POSTOPERATIVE DIAGNOSES: Biliary stricture with proximal dilated common bile duct, status post brush cytology and status post ____-Icelandic 13 cm stent placement. DESCRIPTION OF PROCEDURE: After the risks and benefits of procedure including the risk of hemorrhage or perforation at the time of operation were discussed with the patient and family and informed consent was obtained, the patient was then intubated and placed in the prone position. A side-viewing endoscope was advanced through the esophagus, stomach and first and second portions of the duodenum. Major papilla was identified as well as a periampullary diverticulum. Free cannulation of the common bile duct was obtained. No evidence of retained stones was encountered. A stricture with dilatation of the proximal duct was encountered. [place] cytology was then performed and subsequently, an ____-Icelandic 13 cm stent was placed with moderate difficulty due to the stricture, which was fluoroscopically confirmed cholangitis. Cholangitic bile was draining at the termination of the procedure, the scope was then straightened and withdrawn. The patient tolerated the procedure well without immediate complications. DISPOSITION: We will advance the diet in the a.m. if he has no evidence of further complications, pending CA19-9 and cytology levels. Endoscopic ultrasound may be warranted as an outpatient prior to potential adjuvant therapy if malignancy in fact was confirmed. NICOLÁS OBRIEN MD DR: MEGAN/nicole JOB#: [id number] / [id number] Reynaldo Quispe MD
[2016-09-30 03:00] VITALS: BP 118/63
[2016-09-30] MEDS: METRONIDAZOLE 500mg PREMIX 100 ML IV SCH ×2 (06:09→14:09)
[2016-09-30 06:19] LABS: BASO % 0 % (0-3); EOS % 0 % (0-3); HEMATOCRIT 36.3 % (39.0-53.0); LYMPH # 0.3 x10^3/uL (1.0-4.8); LYMPH % 2 % (24-48); MEAN CORPUSCULAR HEMOGLOBIN 31 pg (25-35); MEAN CORPUSCULAR HGB CONC 33 g/dL (31-37); MEAN CORPUSCULAR VOLUME 94 fL (79-100); MONO % 3 % (0-9); NEUT % 95 % (31-73); PLATELET COUNT 117 x10^3/uL (140-400); RED BLOOD COUNT 3.89 x10^6/uL (4.30-5.70); RED CELL DISTRIBUTION WIDTH 13.4 % (11.5-14.5)
[2016-09-30 06:53] LABS: ALBUMIN 2.9 g/dL (3.4-5.0); CALCIUM 8.2 mg/dL (8.5-10.1); CREATININE 0.9 mg/dL (0.7-1.3); GFR 82.7; POTASSIUM 3.9 mmol/L (3.5-5.1); TOTAL BILIRUBIN 1.4 mg/dL (0.2-1.0); TOTAL PROTEIN 5.9 g/dL (6.4-8.2)
[2016-09-30 07:00] VITALS: BP 122/72
--- NOTE | 2016-09-30 08:53 | RAD ---
ERCP BILIARY DUCT SYSYEM Clinical Indication: ABDOMINAL PAIN Comparison: None. Technique: Spot fluoroscopic images of the right upper quadrant are performed during ERCP. Findings: An endoscope is visualized with cannula extending presumably within the CBD. Final image demonstrates placement of a CBD stent. A total fluoroscopy time of 2.2 minutes utilized. A total of 8 spot fluoroscopic images are obtained. IMPRESSION: Intraprocedural fluoroscopy provided for ERCP, please see procedural note for for details.
[2016-09-30] MEDS: ASPIRIN CHEWABLE 81 MG TABLET. PO SCH (09:17)
[2016-09-30] MEDS: METOPROLOL TART IMMED RELEASE 25 MG TABLET. PO SCH ×2 (09:18→20:29)
--- NOTE | 2016-09-30 10:12 | PDOC ---
SUBJECTIVE Subjective Pt is s/p ERCP with stent placement yesterday. States that his abdominal pain improved a couple of hours after his admission. He has only tried drinking a little bit of water this morning and experienced some cramping. He is waiting on his breakfast tray still. OBJECTIVE Vital Signs Vital Signs Date Time Temp Pulse Resp B/P Pulse Ox O2 Delivery O2 Flow Rate FiO2 09/30/16 09:18 60 118/63 09/30/16 07:00 97.2 69 22 122/72 96 Room Air 97.2 09/30/16 03:00 97.6 60 20 118/63 97 Room Air 97.6 09/29/16 23:00 98.1 68 20 117/53 98 Room Air 98.1 09/29/16 23:00 97.6 68 20 117/53 98 Room Air 97.6 09/29/16 21:45 98.3 70 20 130/65 97 Room Air 98.3 09/29/16 20:45 98.4 69 20 129/63 96 Room Air 98.4 09/29/16 20:15 98.3 67 20 128/62 96 Room Air 98.3 09/29/16 20:00 Room Air 09/29/16 19:45 98.3 59 20 121/55 97 Room Air 98.3 09/29/16 19:30 97.4 66 20 123/57 97 Room Air 97.4 09/29/16 19:15 97.3 67 24 127/58 96 Room Air 97.3 09/29/16 19:00 98.4 74 20 124/63 95 Room Air 98.4 09/29/16 18:35 64 16 129/65 98 Room Air 09/29/16 18:20 60 18 130/65 99 Room Air 09/29/16 18:05 64 16 135/65 99 Room Air 09/29/16 17:50 63 16 140/61 99 Simple Mask 8 09/29/16 17:35 98.9 66 20 120/64 100 Simple Mask 8 98.9 09/29/16 16:34 98.7 66 18 99 98.7 09/29/16 10:43 97.7 58 20 100/42 98 Room Air 97.7 I & O Intake and Output 09/30/16 07:00 Intake Total 200 ml Output Total 300 ml Balance -100 ml IV Total 200 ml Output Urine Total 300 ml # Voids 1 PHYSICAL EXAM Physical Exam GEN: NAD, AOX3 HEENT: MMM, EOMI, no scleral icterus/injection Cardiac: RRR, no M/R/G Lungs: CTAB Abd: non distended, NTTP Ext: no erythema/edema LE bilaterally Neuro: CN2-12 GI ASSESSMENT/PLAN Assessment/Plan Pt is a 75yo CM admitted for abdominal pain 1)Obstructive jaundice- s/p ERCP with stent placement yesterday. GI following. Liver enzymes are improving. 2)SIRS- with no source of infection. Pt's blood cultures were positive for GNR and gram positive cocci, only 1 tube drawn. Possible contaminant? Repeat blood cultures ordered. Pt currently on Rocephin and Metronidazole. Luekocytosis improving 3)Anemia- mild, iatrogenic 4)Thrombocytopenia- CTM Problems: COMMENT Lab Laboratory Tests Test 09/30/16 06:00 White Blood Count 13.0x10^3/uL (4.0-11.0) Red Blood Count 3.89x10^6/uL (4.30-5.70) Hemoglobin 12.0g/dL (13.0-17.5) Hematocrit 36.3% (39.0-53.0) Mean Corpuscular Volume 94fL (79-100) Mean Corpuscular Hemoglobin 31pg (25-35) Mean Corpuscular Hemoglobin Concent 33g/dL (31-37) Red Cell Distribution Width 13.4% (11.5-14.5) Platelet Count 117x10^3/uL (140-400) Neutrophils (%) (Auto) 95% (31-73) Lymphocytes (%) (Auto) 2% (24-48) Monocytes (%) (Auto) 3% (0-9) Eosinophils (%) (Auto) 0% (0-3) Basophils (%) (Auto) 0% (0-3) Neutrophils # (Auto) 12.3x10^3uL (1.8-7.7) Lymphocytes # (Auto) 0.3x10^3/uL (1.0-4.8) Monocytes # (Auto) 0.4x10^3/uL (0.0-1.1) Eosinophils # (Auto) 0.0x10^3/uL (0.0-0.7) Basophils # (Auto) 0.0x10^3/uL (0.0-0.2) Sodium Level 143mmol/L (136-145) Potassium Level 3.9mmol/L (3.5-5.1) Chloride Level 108mmol/L (98-107) Carbon Dioxide Level 22mmol/L (21-32) Anion Gap 13 (6-14) Blood Urea Nitrogen 22mg/dL (8-26) Creatinine 0.9mg/dL (0.7-1.3) Estimated GFR (Cockcroft-Gault) 82.7 BUN/Creatinine Ratio 24 (6-20) Glucose Level 107mg/dL (70-99) Calcium Level 8.2mg/dL (8.5-10.1) Total Bilirubin 1.4mg/dL (0.2-1.0) Aspartate Amino Transf (AST/SGOT) 114U/L (15-37) Alanine Aminotransferase (ALT/SGPT) 160U/L (16-63) Alkaline Phosphatase 92U/L (46-116) Total Protein 5.9g/dL (6.4-8.2) Albumin 2.9g/dL (3.4-5.0) Albumin/Globulin Ratio 1.0 (1.0-1.7) Amylase Level 53U/L (25-115) Lipase 89U/L (73-393) FINN JACOBSEN MD Sep 30, 2016 10:12
[2016-09-30 11:00] VITALS: BP 150/53
--- NOTE | 2016-09-30 14:03 | PDOC ---
G I PROGRESS NOTE Subjective No real complaints. Did not realize he was jaundiced. Physical Exam Lungs clear. RRR Abdomen soft, not tender nor distended. Review of Relevant I have reviewed the following items estephania (where applicable) has been applied. Labs Laboratory Tests Test 09/29/16 06:35 09/30/16 06:00 White Blood Count 16.6x10^3/uL (4.0-11.0) 13.0x10^3/uL (4.0-11.0) Red Blood Count 3.66x10^6/uL (4.30-5.70) 3.89x10^6/uL (4.30-5.70) Hemoglobin 11.2g/dL (13.0-17.5) 12.0g/dL (13.0-17.5) Hematocrit 34.0% (39.0-53.0) 36.3% (39.0-53.0) Mean Corpuscular Volume 93fL (79-100) 94fL (79-100) Mean Corpuscular Hemoglobin 30pg (25-35) 31pg (25-35) Mean Corpuscular Hemoglobin Concent 33g/dL (31-37) 33g/dL (31-37) Red Cell Distribution Width 13.6% (11.5-14.5) 13.4% (11.5-14.5) Platelet Count 120x10^3/uL (140-400) 117x10^3/uL (140-400) Neutrophils (%) (Auto) 91% (31-73) 95% (31-73) Lymphocytes (%) (Auto) 3% (24-48) 2% (24-48) Monocytes (%) (Auto) 6% (0-9) 3% (0-9) Eosinophils (%) (Auto) 0% (0-3) 0% (0-3) Basophils (%) (Auto) 0% (0-3) 0% (0-3) Neutrophils # (Auto) 15.1x10^3uL (1.8-7.7) 12.3x10^3uL (1.8-7.7) Lymphocytes # (Auto) 0.4x10^3/uL (1.0-4.8) 0.3x10^3/uL (1.0-4.8) Monocytes # (Auto) 1.0x10^3/uL (0.0-1.1) 0.4x10^3/uL (0.0-1.1) Eosinophils # (Auto) 0.0x10^3/uL (0.0-0.7) 0.0x10^3/uL (0.0-0.7) Basophils # (Auto) 0.0x10^3/uL (0.0-0.2) 0.0x10^3/uL (0.0-0.2) Sodium Level 143mmol/L (136-145) 143mmol/L (136-145) Potassium Level 3.7mmol/L (3.5-5.1) 3.9mmol/L (3.5-5.1) Chloride Level 105mmol/L (98-107) 108mmol/L (98-107) Carbon Dioxide Level 25mmol/L (21-32) 22mmol/L (21-32) Anion Gap 13 (6-14) 13 (6-14) Blood Urea Nitrogen 19mg/dL (8-26) 22mg/dL (8-26) Creatinine 1.1mg/dL (0.7-1.3) 0.9mg/dL (0.7-1.3) Estimated GFR (Cockcroft-Gault) 65.6 82.7 BUN/Creatinine Ratio 17 (6-20) 24 (6-20) Glucose Level 89mg/dL (70-99) 107mg/dL (70-99) Calcium Level 8.2mg/dL (8.5-10.1) 8.2mg/dL (8.5-10.1) Total Bilirubin 4.2mg/dL (0.2-1.0) 1.4mg/dL (0.2-1.0) Aspartate Amino Transf (AST/SGOT) 221U/L (15-37) 114U/L (15-37) Alanine Aminotransferase (ALT/SGPT) 245U/L (16-63) 160U/L (16-63) Alkaline Phosphatase 97U/L (46-116) 92U/L (46-116) Total Protein 6.0g/dL (6.4-8.2) 5.9g/dL (6.4-8.2) Albumin 3.2g/dL (3.4-5.0) 2.9g/dL (3.4-5.0) Albumin/Globulin Ratio 1.1 (1.0-1.7) 1.0 (1.0-1.7) Amylase Level 53U/L (25-115) Lipase 89U/L (73-393) Laboratory Tests Test 09/30/16 06:00 White Blood Count 13.0x10^3/uL (4.0-11.0) Red Blood Count 3.89x10^6/uL (4.30-5.70) Hemoglobin 12.0g/dL (13.0-17.5) Hematocrit 36.3% (39.0-53.0) Mean Corpuscular Volume 94fL (79-100) Mean Corpuscular Hemoglobin 31pg (25-35) Mean Corpuscular Hemoglobin Concent 33g/dL (31-37) Red Cell Distribution Width 13.4% (11.5-14.5) Platelet Count 117x10^3/uL (140-400) Neutrophils (%) (Auto) 95% (31-73) Lymphocytes (%) (Auto) 2% (24-48) Monocytes (%) (Auto) 3% (0-9) Eosinophils (%) (Auto) 0% (0-3) Basophils (%) (Auto) 0% (0-3) Neutrophils # (Auto) 12.3x10^3uL (1.8-7.7) Lymphocytes # (Auto) 0.3x10^3/uL (1.0-4.8) Monocytes # (Auto) 0.4x10^3/uL (0.0-1.1) Eosinophils # (Auto) 0.0x10^3/uL (0.0-0.7) Basophils # (Auto) 0.0x10^3/uL (0.0-0.2) Sodium Level 143mmol/L (136-145) Potassium Level 3.9mmol/L (3.5-5.1) Chloride Level 108mmol/L (98-107) Carbon Dioxide Level 22mmol/L (21-32) Anion Gap 13 (6-14) Blood Urea Nitrogen 22mg/dL (8-26) Creatinine 0.9mg/dL (0.7-1.3) Estimated GFR (Cockcroft-Gault) 82.7 BUN/Creatinine Ratio 24 (6-20) Glucose Level 107mg/dL (70-99) Calcium Level 8.2mg/dL (8.5-10.1) Total Bilirubin 1.4mg/dL (0.2-1.0) Aspartate Amino Transf (AST/SGOT) 114U/L (15-37) Alanine Aminotransferase (ALT/SGPT) 160U/L (16-63) Alkaline Phosphatase 92U/L (46-116) Total Protein 5.9g/dL (6.4-8.2) Albumin 2.9g/dL (3.4-5.0) Albumin/Globulin Ratio 1.0 (1.0-1.7) Amylase Level 53U/L (25-115) Lipase 89U/L (73-393) Microbiology 09/28/16 Blood Culture - Preliminary, Resulted 09/28/16 Blood Culture Result 1 (GAYE) - Preliminary, Resulted White count, LFT"s down. Duct brushings will take a while to return. Medications Current Medications Sodium Chloride (Iv Sodium Chloride 0.9% 500ml Bag) 500 ml @ 500 mls/hr 1X ONCE IV Last administered on 09/28/16 13:13; Start 09/28/16 at 12:45; Stop at 13:44; Status DC Ondansetron HCl (Zofran) 4 mg 1X ONCE IV Last administered on 09/28/16 13:08 ; Start 09/28/16 at 12:45; Stop 09/28/16 at 12:46; Status DC Fentanyl Citrate (Fentanyl 2ml Vial) 25 mcg PRN Q15MIN PRN IV PAIN GREATER THAN 3/10 Last administered on 09/28/16 13:13; Start 09/28/16 at 12:45; Stop at 12:44; Status DC Iohexol (Omnipaque 300 Mg/ml) 60 ml 1X ONCE IV Last administered on 09/28/16 12:52; Start 09/28/16 at 12:45; Stop 09/28/16 at 12:46; Status DC Info 1 each 1 each PRN DAILY PRN MC SEE COMMENTS; Start 09/28/16 at 13:00; Stop 09/30/16 at 12:59; Status DC Metronidazole 100 ml @ 100 mls/hr Q8HRS IV Last administered on 09/30/16 06: 09; Start 09/28/16 at 22:00 Metronidazole 100 ml @ 100 mls/hr 1X ONCE IV Last administered on 09/28/16 15:14; Start 09/28/16 at 14:30; Stop 09/28/16 at 15:29; Status DC Ceftriaxone Sodium 50 ml @ 100 mls/hr 1X ONCE IV Last administered on 15:15; Start 09/28/16 at 14:30; Stop 09/28/16 at 14:59; Status DC Ceftriaxone Sodium/Sodium Chloride (Rocephin/Iv Sodium Chloride 0.9% 50ml) 50 ml @ 100 mls/hr Q24H IV Last administered on 09/29/16 16:11; Start 09/29/16 at 15:00 Ondansetron HCl (Zofran) 4 mg PRN Q8HRS PRN IV NAUSEA/VOMITING; Start 09/28/16 at 15:15; Stop 09/29/16 at 15:14; Status DC Fentanyl Citrate 50 mcg 50 mcg PRN Q1HR PRN IV PAIN; Start 09/28/16 at 15:15; Stop 09/29/16 at 15:14; Status DC Sodium Chloride (Iv Sodium Chloride 0.9% 1000ml Bag) 1,000 ml @ 100 mls/hr Q10H IV Last administered on 09/29/16 08:53; Start 09/28/16 at 15:15; Stop at 15:14; Status DC Aspirin (Children'S Aspirin) 81 mg DAILY PO Last administered on 09/30/16 09: 17; Start 09/29/16 at 09:00 Metoprolol Tartrate (Lopressor) 25 mg BID PO Last administered on 09/30/16 09: 18; Start 09/28/16 at 21:00 Simvastatin 20 mg 20 mg DAILY PO ; Start 09/29/16 at 09:00; Stop 09/29/16 at 18: 36; Status DC Lactated Ringer's 1,000 ml @ 50 mls/hr Q20H IV ; Start 09/29/16 at 14:57; Stop 09/30/16 at 02:56; Status DC Propofol (Diprivan) 20 ml @ As Directed STK-MED ONCE IV ; Start 09/29/16 at 16: 33; Stop 09/29/16 at 16:34; Status DC Lidocaine HCl (Lidocaine Pf 2% Vial) 5 ml STK-MED ONCE .ROUTE ; Start 09/29/16 at 16:33; Stop 09/29/16 at 16:34; Status DC Succinylcholine Chloride (Anectine) 200 mg STK-MED ONCE .ROUTE ; Start 09/29/16 at 16:33; Stop 09/29/16 at 16:34; Status DC Dexamethasone Sodium Phosphate (Decadron) 4 mg STK-MED ONCE .ROUTE ; Start 09/29 at 16:36; Stop 09/29/16 at 16:37; Status DC Ondansetron HCl (Zofran) 4 mg STK-MED ONCE .ROUTE ; Start 09/29/16 at 16:36; Stop 09/29/16 at 16:37; Status DC Iohexol (Omnipaque 300 Mg/ml) 50 ml STK-MED ONCE .ROUTE ; Start 09/29/16 at 16: 38; Stop 09/29/16 at 16:39; Status DC Iohexol (Omnipaque 300 Mg/ml) 50 ml STK-MED ONCE IV Last administered on t 17:28; Start 09/29/16 at 17:28; Stop 09/29/16 at 17:32; Status DC Active Scripts Active Reported Aspirin 81 Mg Tab.chew 1 Tab PO DAILY Metoprolol Tartrate 25 Mg Tablet 25 Mg PO DAILY Simvastatin 20 Mg Tablet 40 Mg PO HS Vitals/I & O Vital Sign - Last 24 Hours 09/29/16 09/29/16 09/29/16 09/29/16 16:34 17:35 17:50 18:05 Temp 98.7 98.9 98.7 98.9 Pulse 66 66 63 64 Resp 18 20 16 16 B/P 120/64 140/61 135/65 Pulse Ox 99 100 99 99 O2 Delivery Simple Mask Simple Mask Room Air O2 Flow Rate 8 8 09/29/16 09/29/16 09/29/16 09/29/16 18:20 18:35 19:00 19:15 Temp 98.4 97.3 98.4 97.3 Pulse 60 64 74 67 Resp 18 16 20 24 B/P 130/65 129/65 124/63 127/58 Pulse Ox 99 98 95 96 O2 Delivery Room Air Room Air Room Air Room Air 09/29/16 09/29/16 09/29/16 09/29/16 19:30 19:45 20:00 20:15 Temp 97.4 98.3 98.3 97.4 98.3 98.3 Pulse 66 59 67 Resp 20 20 20 B/P 123/57 121/55 128/62 Pulse Ox 97 97 96 O2 Delivery Room Air Room Air Room Air Room Air 09/29/16 09/29/16 09/29/16 09/29/16 20:45 21:45 23:00 23:00 Temp 98.4 98.3 97.6 98.1 98.4 98.3 97.6 98.1 Pulse 69 70 68 68 Resp 20 20 20 20 B/P 129/63 130/65 117/53 117/53 Pulse Ox 96 97 98 98 O2 Delivery Room Air Room Air Room Air Room Air 09/30/16 09/30/16 09/30/16 09/30/16 03:00 07:00 09:18 11:00 Temp 97.6 97.2 97.9 97.6 97.2 97.9 Pulse 60 69 60 61 Resp 20 22 22 B/P 118/63 122/72 118/63 150/53 Pulse Ox 97 96 98 O2 Delivery Room Air Room Air Room Air Intake and Output 09/29/16 09/29/16 09/30/16 15:00 23:00 07:00 Intake Total 100 ml 100 ml Output Total 300 ml Balance 100 ml 100 ml -300 ml Problem List Problems Medical Problems: (1) Abdominal pain Status: Acute Assessment Distal CBD stricture, likely malignant, s/p stenting with cholangitis on-going, but better. Plan of Care Note Await pending studies. Given small diameter stent, will need changing at some point in not too distant future as will plug, particularly with associated infection. If acutely plugs with worsening infection, would need prompt removal of stent. NATALIE GONZALEZ MD Sep 30, 2016 14:03
[2016-09-30 15:00] VITALS: BP 128/58
[2016-09-30] MEDS: CEFTRIAXONE SODIUM 1 GM in IV NORMAL SALINE 50ML 50 ML IV SCH (16:14)
[2016-09-30 19:59] VITALS: BP 112/44
[2016-09-30] MEDS ORDERED: CEFPODOXIME PROXETIL 100 MG TABLET. PO SCH (21:00)
[2016-09-30] MEDS: METRONIDAZOLE 500 MG TABLET. PO SCH (22:12)
[2016-09-30 22:57] VITALS: BP 139/49
[2016-10-01 03:59] VITALS: BP 117/45
[2016-10-01 04:33] LABS: BASO % 0 % (0-3); EOS % 0 % (0-3); HEMATOCRIT 35.7 % (39.0-53.0); HEMOGLOBIN 11.7 g/dL (13.0-17.5); LYMPH # 0.7 x10^3/uL (1.0-4.8); LYMPH % 5 % (24-48); MEAN CORPUSCULAR HEMOGLOBIN 30 pg (25-35); MEAN CORPUSCULAR HGB CONC 33 g/dL (31-37); MEAN CORPUSCULAR VOLUME 93 fL (79-100); MONO % 7 % (0-9); NEUT % 88 % (31-73); PLATELET COUNT 139 x10^3/uL (140-400); RED BLOOD COUNT 3.85 x10^6/uL (4.30-5.70); RED CELL DISTRIBUTION WIDTH 13.6 % (11.5-14.5); WHITE BLOOD COUNT 13.8 x10^3/uL (4.0-11.0)
[2016-10-01 05:52] LABS: ALBUMIN 3.1 g/dL (3.4-5.0); ALBUMIN/GLOBULIN RATIO 1.1 (1.0-1.7); CALCIUM 8.4 mg/dL (8.5-10.1); GFR 73.2; POTASSIUM 4.1 mmol/L (3.5-5.1); TOTAL BILIRUBIN 0.9 mg/dL (0.2-1.0); TOTAL PROTEIN 5.9 g/dL (6.4-8.2)
[2016-10-01] MEDS: METRONIDAZOLE 500 MG TABLET. PO SCH ×3 (05:55→22:35)
[2016-10-01 07:00] VITALS: BP 177/54
[2016-10-01] MEDS: ASPIRIN CHEWABLE 81 MG TABLET. PO SCH (08:51)
[2016-10-01] MEDS: CEFPODOXIME PROXETIL 100 MG TABLET. PO SCH ×2 (08:51→22:35)
[2016-10-01] MEDS: METOPROLOL TART IMMED RELEASE 25 MG TABLET. PO SCH (09:00)
[2016-10-01] MEDS ORDERED: METO25TA9 PO (09:19)
--- NOTE | 2016-10-01 09:37 | PDOC ---
SUBJECTIVE Subjective Pt states that he is feeling pretty good. Ate CLD yesterday with no issues. Says that he was told in the past he may need a pacemaker; some rhythm irregularities. OBJECTIVE Vital Signs Vital Signs Date Time Temp Pulse Resp B/P Pulse Ox O2 Delivery O2 Flow Rate FiO2 10/01/16 09:00 66 117/45 10/01/16 03:59 97.7 66 18 117/45 96 Room Air 97.7 09/30/16 22:57 97.7 71 18 139/49 98 Room Air 97.7 09/30/16 20:29 67 112/44 09/30/16 20:00 Room Air 09/30/16 19:59 96.4 67 18 112/44 94 Room Air 96.4 09/30/16 15:00 98.2 80 20 128/58 98 Room Air 98.2 09/30/16 11:00 97.9 61 22 150/53 98 Room Air 97.9 I & O Intake and Output 10/01/16 06:59 Intake Total 940 ml Output Total 800 ml Balance 140 ml Intake Oral 840 ml IV Total 100 ml Output Urine Total 800 ml # Voids 1 PHYSICAL EXAM Physical Exam GEN: NAD, AOX3 HEENT: MMM, EOMI, no scleral icterus/injection Cardiac: RRR, no M/R/G Lungs: CTAB Abd: non distended, NTTP Ext: no erythema/edema LE bilaterally Neuro: CN2-12 GI ASSESSMENT/PLAN Assessment/Plan Pt is a 75yo CM admitted for abdominal pain 1)Obstructive jaundice- s/p ERCP with stent placement. Liver enzmes improving. GI following. Awaiting biopsy results 2)SIRS- with no source of infection. WBC still mildly elevated, fevers have resolved. Pt's blood cultures were positive for GNR and gram positive cocci, only 1 tube drawn. Possible contaminant? Repeat blood cultures pending. Pt currently on Cefpodoxime and Metronidazole. 3)Anemia- mild, iatrogenic 4)Thrombocytopenia- improving 5)HTN- pt normally on Metoprolol 25mg ER but was put on 25mg po BID; changed 6)HLD- pt continued on Simvastatin 7)Rhythm irregularities- Cardiology consulted Problems: COMMENT Lab Laboratory Tests Test 10/01/16 03:50 White Blood Count 13.8x10^3/uL (4.0-11.0) Red Blood Count 3.85x10^6/uL (4.30-5.70) Hemoglobin 11.7g/dL (13.0-17.5) Hematocrit 35.7% (39.0-53.0) Mean Corpuscular Volume 93fL (79-100) Mean Corpuscular Hemoglobin 30pg (25-35) Mean Corpuscular Hemoglobin Concent 33g/dL (31-37) Red Cell Distribution Width 13.6% (11.5-14.5) Platelet Count 139x10^3/uL (140-400) Neutrophils (%) (Auto) 88% (31-73) Lymphocytes (%) (Auto) 5% (24-48) Monocytes (%) (Auto) 7% (0-9) Eosinophils (%) (Auto) 0% (0-3) Basophils (%) (Auto) 0% (0-3) Neutrophils # (Auto) 12.1x10^3uL (1.8-7.7) Lymphocytes # (Auto) 0.7x10^3/uL (1.0-4.8) Monocytes # (Auto) 1.0x10^3/uL (0.0-1.1) Eosinophils # (Auto) 0.0x10^3/uL (0.0-0.7) Basophils # (Auto) 0.0x10^3/uL (0.0-0.2) Sodium Level 143mmol/L (136-145) Potassium Level 4.1mmol/L (3.5-5.1) Chloride Level 108mmol/L (98-107) Carbon Dioxide Level 27mmol/L (21-32) Anion Gap 8 (6-14) Blood Urea Nitrogen 21mg/dL (8-26) Creatinine 1.0mg/dL (0.7-1.3) Estimated GFR (Cockcroft-Gault) 73.2 BUN/Creatinine Ratio 21 (6-20) Glucose Level 110mg/dL (70-99) Calcium Level 8.4mg/dL (8.5-10.1) Magnesium Level 1.9mg/dL (1.8-2.4) Total Bilirubin 0.9mg/dL (0.2-1.0) Aspartate Amino Transf (AST/SGOT) 70U/L (15-37) Alanine Aminotransferase (ALT/SGPT) 117U/L (16-63) Alkaline Phosphatase 86U/L (46-116) Total Protein 5.9g/dL (6.4-8.2) Albumin 3.1g/dL (3.4-5.0) Albumin/Globulin Ratio 1.1 (1.0-1.7) FINN JACOBSEN MD Oct 01, 2016 09:36
--- NOTE | 2016-10-01 10:00 | PDOC2 ---
CONSULT Date of Consult Date of Consult DATE: 10/01/16 TIME: 10:00 Reason for Consult Reason for Consult: Arrhythmia Referring Physician Referring Physician: Dr. 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 Cardiology has been consulted for PVC's/bigeminy on telemetry. Patient denied any chest pain, palpitations or syncope. He stated that he had seen Dr. aDvis for some kind of arrhythmia in the past and was recommended pacemaker placement. Past Medical History Cardiovascular: HTN, Hyperlipidemia Past Surgical History Past Surgical History: Appendectomy, Cholecystectomy, Hernia Repair Social History No ALCOHOL: none Current Problem List Problem List Problems Medical Problems: (1) Abdominal pain Status: Acute Current Medications Current Medications Current Medications Sodium Chloride (Iv Sodium Chloride 0.9% 500ml Bag) 500 ml @ 500 mls/hr 1X ONCE IV Last administered on 09/28/16 13:13; Start 09/28/16 at 12:45; Stop at 13:44; Status DC Ondansetron HCl (Zofran) 4 mg 1X ONCE IV Last administered on 09/28/16 13:08 ; Start 09/28/16 at 12:45; Stop 09/28/16 at 12:46; Status DC Fentanyl Citrate (Fentanyl 2ml Vial) 25 mcg PRN Q15MIN PRN IV PAIN GREATER THAN 3/10 Last administered on 09/28/16 13:13; Start 09/28/16 at 12:45; Stop at 12:44; Status DC Iohexol (Omnipaque 300 Mg/ml) 60 ml 1X ONCE IV Last administered on 09/28/16 12:52; Start 09/28/16 at 12:45; Stop 09/28/16 at 12:46; Status DC Info 1 each 1 each PRN DAILY PRN MC SEE COMMENTS; Start 09/28/16 at 13:00; Stop 09/30/16 at 12:59; Status DC Metronidazole 100 ml @ 100 mls/hr Q8HRS IV Last administered on 09/30/16 14: 09; Start 09/28/16 at 22:00; Stop 09/30/16 at 16:16; Status DC Metronidazole 100 ml @ 100 mls/hr 1X ONCE IV Last administered on 09/28/16 15:14; Start 09/28/16 at 14:30; Stop 09/28/16 at 15:29; Status DC Ceftriaxone Sodium 50 ml @ 100 mls/hr 1X ONCE IV Last administered on 15:15; Start 09/28/16 at 14:30; Stop 09/28/16 at 14:59; Status DC Ceftriaxone Sodium/Sodium Chloride (Rocephin/Iv Sodium Chloride 0.9% 50ml) 50 ml @ 100 mls/hr Q24H IV Last administered on 09/30/16 16:14; Start 09/29/16 at 15:00; Stop 09/30/16 at 16:16; Status DC Ondansetron HCl (Zofran) 4 mg PRN Q8HRS PRN IV NAUSEA/VOMITING; Start 09/28/16 at 15:15; Stop 09/29/16 at 15:14; Status DC Fentanyl Citrate 50 mcg 50 mcg PRN Q1HR PRN IV PAIN; Start 09/28/16 at 15:15; Stop 09/29/16 at 15:14; Status DC Sodium Chloride (Iv Sodium Chloride 0.9% 1000ml Bag) 1,000 ml @ 100 mls/hr Q10H IV Last administered on 09/29/16 08:53; Start 09/28/16 at 15:15; Stop at 15:14; Status DC Aspirin (Children'S Aspirin) 81 mg DAILY PO Last administered on 10/01/16 08: 51; Start 09/29/16 at 09:00 Metoprolol Tartrate (Lopressor) 25 mg BID PO Last administered on 09/30/16 09: 18; Start 09/28/16 at 21:00; Stop 10/01/16 at 09:17; Status DC Simvastatin 20 mg 20 mg DAILY PO ; Start 09/29/16 at 09:00; Stop 09/29/16 at 18: 36; Status DC Lactated Ringer's 1,000 ml @ 50 mls/hr Q20H IV ; Start 09/29/16 at 14:57; Stop 09/30/16 at 02:56; Status DC Propofol (Diprivan) 20 ml @ As Directed STK-MED ONCE IV ; Start 09/29/16 at 16: 33; Stop 09/29/16 at 16:34; Status DC Lidocaine HCl (Lidocaine Pf 2% Vial) 5 ml STK-MED ONCE .ROUTE ; Start 09/29/16 at 16:33; Stop 09/29/16 at 16:34; Status DC Succinylcholine Chloride (Anectine) 200 mg STK-MED ONCE .ROUTE ; Start 09/29/16 at 16:33; Stop 09/29/16 at 16:34; Status DC Dexamethasone Sodium Phosphate (Decadron) 4 mg STK-MED ONCE .ROUTE ; Start 09/29 at 16:36; Stop 09/29/16 at 16:37; Status DC Ondansetron HCl (Zofran) 4 mg STK-MED ONCE .ROUTE ; Start 09/29/16 at 16:36; Stop 09/29/16 at 16:37; Status DC Iohexol (Omnipaque 300 Mg/ml) 50 ml STK-MED ONCE .ROUTE ; Start 09/29/16 at 16: 38; Stop 09/29/16 at 16:39; Status DC Iohexol (Omnipaque 300 Mg/ml) 50 ml STK-MED ONCE IV Last administered on t 17:28; Start 09/29/16 at 17:28; Stop 09/29/16 at 17:32; Status DC Cefpodoxime Proxetil (Vantin) 200 mg BID PO ; Start 09/30/16 at 21:00; Stop at 21:00; Status DC Cefpodoxime Proxetil (Vantin) 200 mg BID PO Last administered on 10/01/16 08: 51; Start 10/01/16 at 09:00 Metronidazole (Flagyl) 500 mg Q8HRS PO Last administered on 10/01/16t 05:55; Start 09/30/16 at 22:00 Metoprolol Succinate (Toprol Xl) 25 mg DAILY PO ; Start 10/02/16 at 09:00 Simvastatin (Zocor) 40 mg QHS PO ; Start 10/01/16 at 21:00 Polyethylene Glycol (miraLAX PACKET) 17 gm PRN DAILY PRN PO CONSTIPATION; Start 10/01/16 at 09:45 Active Scripts Active Reported Metoprolol Succinate ( Xl ) (Metoprolol Succinate) 25 Mg Tab.er.24h 25 Mg PO DAILY Aspirin 81 Mg Tab.chew 1 Tab PO DAILY Simvastatin 20 Mg Tablet 40 Mg PO HS Allergies Allergies: Coded Allergies: No Known Drug Allergies (Unverified , 09/29/16) ROS PSYCHOLOGICAL ROS: No: Hallucinations Eyes: No Loss of vision HEENT: No: Epistaxis Respiratory: No: Hemoptysis Cardiovascular: No Chest Pain, No Palpitations Gastrointestinal: Yes Abdominal Pain, No Vomiting Genitourinary: No Hematuria Neurological: No Seizures Skin: No Rash Physical Exam General: Alert, Oriented X3 HEENT: Atraumatic, PERRLA Lungs: Clear to auscultation Heart: Regular rate Abdomen: Soft Extremities: No edema Psych/Mental Status: Mood NL Vitals VITALS Vital Signs Date Time Temp Pulse Resp B/P Pulse Ox O2 Delivery O2 Flow Rate FiO2 10/01/16 09:00 66 117/45 10/01/16 03:59 97.7 18 96 Room Air 97.7 Labs Labs Laboratory Tests Test 09/30/16 06:00 10/01/16 03:50 White Blood Count 13.0x10^3/uL (4.0-11.0) 13.8x10^3/uL (4.0-11.0) Red Blood Count 3.89x10^6/uL (4.30-5.70) 3.85x10^6/uL (4.30-5.70) Hemoglobin 12.0g/dL (13.0-17.5) 11.7g/dL (13.0-17.5) Hematocrit 36.3% (39.0-53.0) 35.7% (39.0-53.0) Mean Corpuscular Volume 94fL (79-100) 93fL (79-100) Mean Corpuscular Hemoglobin 31pg (25-35) 30pg (25-35) Mean Corpuscular Hemoglobin Concent 33g/dL (31-37) 33g/dL (31-37) Red Cell Distribution Width 13.4% (11.5-14.5) 13.6% (11.5-14.5) Platelet Count 117x10^3/uL (140-400) 139x10^3/uL (140-400) Neutrophils (%) (Auto) 95% (31-73) 88% (31-73) Lymphocytes (%) (Auto) 2% (24-48) 5% (24-48) Monocytes (%) (Auto) 3% (0-9) 7% (0-9) Eosinophils (%) (Auto) 0% (0-3) 0% (0-3) Basophils (%) (Auto) 0% (0-3) 0% (0-3) Neutrophils # (Auto) 12.3x10^3uL (1.8-7.7) 12.1x10^3uL (1.8-7.7) Lymphocytes # (Auto) 0.3x10^3/uL (1.0-4.8) 0.7x10^3/uL (1.0-4.8) Monocytes # (Auto) 0.4x10^3/uL (0.0-1.1) 1.0x10^3/uL (0.0-1.1) Eosinophils # (Auto) 0.0x10^3/uL (0.0-0.7) 0.0x10^3/uL (0.0-0.7) Basophils # (Auto) 0.0x10^3/uL (0.0-0.2) 0.0x10^3/uL (0.0-0.2) Sodium Level 143mmol/L (136-145) 143mmol/L (136-145) Potassium Level 3.9mmol/L (3.5-5.1) 4.1mmol/L (3.5-5.1) Chloride Level 108mmol/L (98-107) 108mmol/L (98-107) Carbon Dioxide Level 22mmol/L (21-32) 27mmol/L (21-32) Anion Gap 13 (6-14) 8 (6-14) Blood Urea Nitrogen 22mg/dL (8-26) 21mg/dL (8-26) Creatinine 0.9mg/dL (0.7-1.3) 1.0mg/dL (0.7-1.3) Estimated GFR (Cockcroft-Gault) 82.7 73.2 BUN/Creatinine Ratio 24 (6-20) 21 (6-20) Glucose Level 107mg/dL (70-99) 110mg/dL (70-99) Calcium Level 8.2mg/dL (8.5-10.1) 8.4mg/dL (8.5-10.1) Total Bilirubin 1.4mg/dL (0.2-1.0) 0.9mg/dL (0.2-1.0) Aspartate Amino Transf (AST/SGOT) 114U/L (15-37) 70U/L (15-37) Alanine Aminotransferase (ALT/SGPT) 160U/L (16-63) 117U/L (16-63) Alkaline Phosphatase 92U/L (46-116) 86U/L (46-116) Total Protein 5.9g/dL (6.4-8.2) 5.9g/dL (6.4-8.2) Albumin 2.9g/dL (3.4-5.0) 3.1g/dL (3.4-5.0) Albumin/Globulin Ratio 1.0 (1.0-1.7) 1.1 (1.0-1.7) Amylase Level 53U/L (25-115) Lipase 89U/L (73-393) Magnesium Level 1.9mg/dL (1.8-2.4) Laboratory Tests Test 10/01/16 03:50 White Blood Count 13.8x10^3/uL (4.0-11.0) Red Blood Count 3.85x10^6/uL (4.30-5.70) Hemoglobin 11.7g/dL (13.0-17.5) Hematocrit 35.7% (39.0-53.0) Mean Corpuscular Volume 93fL (79-100) Mean Corpuscular Hemoglobin 30pg (25-35) Mean Corpuscular Hemoglobin Concent 33g/dL (31-37) Red Cell Distribution Width 13.6% (11.5-14.5) Platelet Count 139x10^3/uL (140-400) Neutrophils (%) (Auto) 88% (31-73) Lymphocytes (%) (Auto) 5% (24-48) Monocytes (%) (Auto) 7% (0-9) Eosinophils (%) (Auto) 0% (0-3) Basophils (%) (Auto) 0% (0-3) Neutrophils # (Auto) 12.1x10^3uL (1.8-7.7) Lymphocytes # (Auto) 0.7x10^3/uL (1.0-4.8) Monocytes # (Auto) 1.0x10^3/uL (0.0-1.1) Eosinophils # (Auto) 0.0x10^3/uL (0.0-0.7) Basophils # (Auto) 0.0x10^3/uL (0.0-0.2) Sodium Level 143mmol/L (136-145) Potassium Level 4.1mmol/L (3.5-5.1) Chloride Level 108mmol/L (98-107) Carbon Dioxide Level 27mmol/L (21-32) Anion Gap 8 (6-14) Blood Urea Nitrogen 21mg/dL (8-26) Creatinine 1.0mg/dL (0.7-1.3) Estimated GFR (Cockcroft-Gault) 73.2 BUN/Creatinine Ratio 21 (6-20) Glucose Level 110mg/dL (70-99) Calcium Level 8.4mg/dL (8.5-10.1) Magnesium Level 1.9mg/dL (1.8-2.4) Total Bilirubin 0.9mg/dL (0.2-1.0) Aspartate Amino Transf (AST/SGOT) 70U/L (15-37) Alanine Aminotransferase (ALT/SGPT) 117U/L (16-63) Alkaline Phosphatase 86U/L (46-116) Total Protein 5.9g/dL (6.4-8.2) Albumin 3.1g/dL (3.4-5.0) Albumin/Globulin Ratio 1.1 (1.0-1.7) Assessment/Plan Assessment/Plan 1. Obstructive jaundice and ascending cholangitis- s/p ERCP with stent placement. Liver enzmes improving. GI following. Continue IV antibiotics. 2. Hypertension - controlled 3. Hyperlipidemia - statins 4. Cardiac arrhythmia - tele showed sinus rhythm with PVC's, bigeminy. Mg 1.9 - we will administer 2 gm IV Mg sulfate. Check 2D echo to assess LV function. Patient stated that he was told by Dr. Davis in the past that he needed pacemaker - no evidence for SSS on tele. We will obtain records from Dr. Davis' s office. LISA KELSEY MD Oct 01, 2016 10:00
[2016-10-01] MEDS: METOPROLOL SUCC 24HR ER 25 MG TAB.ER.24H. PO SCH (10:34)
[2016-10-01 11:00] VITALS: BP 119/76
[2016-10-01] MEDS ORDERED: MAGNESIUM SULFATE 2GM 50 ML IV ONE (11:30)
[2016-10-01] MEDS: POLYETHYLENE GLYCOL 3350 17 GM PACKET. PO PRN (11:52)
[2016-10-01 15:00] VITALS: BP 120/68
--- NOTE | 2016-10-01 15:37 | PDOC ---
G I PROGRESS NOTE Subjective No complaints. Physical Exam Abdomen benign. Review of Relevant I have reviewed the following items estephania (where applicable) has been applied. Labs Laboratory Tests Test 09/30/16 06:00 10/01/16 03:50 White Blood Count 13.0x10^3/uL (4.0-11.0) 13.8x10^3/uL (4.0-11.0) Red Blood Count 3.89x10^6/uL (4.30-5.70) 3.85x10^6/uL (4.30-5.70) Hemoglobin 12.0g/dL (13.0-17.5) 11.7g/dL (13.0-17.5) Hematocrit 36.3% (39.0-53.0) 35.7% (39.0-53.0) Mean Corpuscular Volume 94fL (79-100) 93fL (79-100) Mean Corpuscular Hemoglobin 31pg (25-35) 30pg (25-35) Mean Corpuscular Hemoglobin Concent 33g/dL (31-37) 33g/dL (31-37) Red Cell Distribution Width 13.4% (11.5-14.5) 13.6% (11.5-14.5) Platelet Count 117x10^3/uL (140-400) 139x10^3/uL (140-400) Neutrophils (%) (Auto) 95% (31-73) 88% (31-73) Lymphocytes (%) (Auto) 2% (24-48) 5% (24-48) Monocytes (%) (Auto) 3% (0-9) 7% (0-9) Eosinophils (%) (Auto) 0% (0-3) 0% (0-3) Basophils (%) (Auto) 0% (0-3) 0% (0-3) Neutrophils # (Auto) 12.3x10^3uL (1.8-7.7) 12.1x10^3uL (1.8-7.7) Lymphocytes # (Auto) 0.3x10^3/uL (1.0-4.8) 0.7x10^3/uL (1.0-4.8) Monocytes # (Auto) 0.4x10^3/uL (0.0-1.1) 1.0x10^3/uL (0.0-1.1) Eosinophils # (Auto) 0.0x10^3/uL (0.0-0.7) 0.0x10^3/uL (0.0-0.7) Basophils # (Auto) 0.0x10^3/uL (0.0-0.2) 0.0x10^3/uL (0.0-0.2) Sodium Level 143mmol/L (136-145) 143mmol/L (136-145) Potassium Level 3.9mmol/L (3.5-5.1) 4.1mmol/L (3.5-5.1) Chloride Level 108mmol/L (98-107) 108mmol/L (98-107) Carbon Dioxide Level 22mmol/L (21-32) 27mmol/L (21-32) Anion Gap 13 (6-14) 8 (6-14) Blood Urea Nitrogen 22mg/dL (8-26) 21mg/dL (8-26) Creatinine 0.9mg/dL (0.7-1.3) 1.0mg/dL (0.7-1.3) Estimated GFR (Cockcroft-Gault) 82.7 73.2 BUN/Creatinine Ratio 24 (6-20) 21 (6-20) Glucose Level 107mg/dL (70-99) 110mg/dL (70-99) Calcium Level 8.2mg/dL (8.5-10.1) 8.4mg/dL (8.5-10.1) Total Bilirubin 1.4mg/dL (0.2-1.0) 0.9mg/dL (0.2-1.0) Aspartate Amino Transf (AST/SGOT) 114U/L (15-37) 70U/L (15-37) Alanine Aminotransferase (ALT/SGPT) 160U/L (16-63) 117U/L (16-63) Alkaline Phosphatase 92U/L (46-116) 86U/L (46-116) Total Protein 5.9g/dL (6.4-8.2) 5.9g/dL (6.4-8.2) Albumin 2.9g/dL (3.4-5.0) 3.1g/dL (3.4-5.0) Albumin/Globulin Ratio 1.0 (1.0-1.7) 1.1 (1.0-1.7) Amylase Level 53U/L (25-115) Lipase 89U/L (73-393) Magnesium Level 1.9mg/dL (1.8-2.4) Laboratory Tests Test 10/01/16 03:50 White Blood Count 13.8x10^3/uL (4.0-11.0) Red Blood Count 3.85x10^6/uL (4.30-5.70) Hemoglobin 11.7g/dL (13.0-17.5) Hematocrit 35.7% (39.0-53.0) Mean Corpuscular Volume 93fL (79-100) Mean Corpuscular Hemoglobin 30pg (25-35) Mean Corpuscular Hemoglobin Concent 33g/dL (31-37) Red Cell Distribution Width 13.6% (11.5-14.5) Platelet Count 139x10^3/uL (140-400) Neutrophils (%) (Auto) 88% (31-73) Lymphocytes (%) (Auto) 5% (24-48) Monocytes (%) (Auto) 7% (0-9) Eosinophils (%) (Auto) 0% (0-3) Basophils (%) (Auto) 0% (0-3) Neutrophils # (Auto) 12.1x10^3uL (1.8-7.7) Lymphocytes # (Auto) 0.7x10^3/uL (1.0-4.8) Monocytes # (Auto) 1.0x10^3/uL (0.0-1.1) Eosinophils # (Auto) 0.0x10^3/uL (0.0-0.7) Basophils # (Auto) 0.0x10^3/uL (0.0-0.2) Sodium Level 143mmol/L (136-145) Potassium Level 4.1mmol/L (3.5-5.1) Chloride Level 108mmol/L (98-107) Carbon Dioxide Level 27mmol/L (21-32) Anion Gap 8 (6-14) Blood Urea Nitrogen 21mg/dL (8-26) Creatinine 1.0mg/dL (0.7-1.3) Estimated GFR (Cockcroft-Gault) 73.2 BUN/Creatinine Ratio 21 (6-20) Glucose Level 110mg/dL (70-99) Calcium Level 8.4mg/dL (8.5-10.1) Magnesium Level 1.9mg/dL (1.8-2.4) Total Bilirubin 0.9mg/dL (0.2-1.0) Aspartate Amino Transf (AST/SGOT) 70U/L (15-37) Alanine Aminotransferase (ALT/SGPT) 117U/L (16-63) Alkaline Phosphatase 86U/L (46-116) Total Protein 5.9g/dL (6.4-8.2) Albumin 3.1g/dL (3.4-5.0) Albumin/Globulin Ratio 1.1 (1.0-1.7) Microbiology 09/30/16 Blood Culture - Preliminary, Resulted NO GROWTH AFTER 1 DAY LFT's normalized. Note positive blood cultures. Medications Current Medications Sodium Chloride (Iv Sodium Chloride 0.9% 500ml Bag) 500 ml @ 500 mls/hr 1X ONCE IV Last administered on 09/28/16 13:13; Start 09/28/16 at 12:45; Stop at 13:44; Status DC Ondansetron HCl (Zofran) 4 mg 1X ONCE IV Last administered on 09/28/16 13:08 ; Start 09/28/16 at 12:45; Stop 09/28/16 at 12:46; Status DC Fentanyl Citrate (Fentanyl 2ml Vial) 25 mcg PRN Q15MIN PRN IV PAIN GREATER THAN 3/10 Last administered on 09/28/16 13:13; Start 09/28/16 at 12:45; Stop at 12:44; Status DC Iohexol (Omnipaque 300 Mg/ml) 60 ml 1X ONCE IV Last administered on 09/28/16 12:52; Start 09/28/16 at 12:45; Stop 09/28/16 at 12:46; Status DC Info 1 each 1 each PRN DAILY PRN MC SEE COMMENTS; Start 09/28/16 at 13:00; Stop 09/30/16 at 12:59; Status DC Metronidazole 100 ml @ 100 mls/hr Q8HRS IV Last administered on 09/30/16 14: 09; Start 09/28/16 at 22:00; Stop 09/30/16 at 16:16; Status DC Metronidazole 100 ml @ 100 mls/hr 1X ONCE IV Last administered on 09/28/16 15:14; Start 09/28/16 at 14:30; Stop 09/28/16 at 15:29; Status DC Ceftriaxone Sodium 50 ml @ 100 mls/hr 1X ONCE IV Last administered on 15:15; Start 09/28/16 at 14:30; Stop 09/28/16 at 14:59; Status DC Ceftriaxone Sodium/Sodium Chloride (Rocephin/Iv Sodium Chloride 0.9% 50ml) 50 ml @ 100 mls/hr Q24H IV Last administered on 09/30/16 16:14; Start 09/29/16 at 15:00; Stop 09/30/16 at 16:16; Status DC Ondansetron HCl (Zofran) 4 mg PRN Q8HRS PRN IV NAUSEA/VOMITING; Start 09/28/16 at 15:15; Stop 09/29/16 at 15:14; Status DC Fentanyl Citrate 50 mcg 50 mcg PRN Q1HR PRN IV PAIN; Start 09/28/16 at 15:15; Stop 09/29/16 at 15:14; Status DC Sodium Chloride (Iv Sodium Chloride 0.9% 1000ml Bag) 1,000 ml @ 100 mls/hr Q10H IV Last administered on 09/29/16 08:53; Start 09/28/16 at 15:15; Stop at 15:14; Status DC Aspirin (Children'S Aspirin) 81 mg DAILY PO Last administered on 10/01/16 08: 51; Start 09/29/16 at 09:00 Metoprolol Tartrate (Lopressor) 25 mg BID PO Last administered on 09/30/16 09: 18; Start 09/28/16 at 21:00; Stop 10/01/16 at 09:17; Status DC Simvastatin 20 mg 20 mg DAILY PO ; Start 09/29/16 at 09:00; Stop 09/29/16 at 18: 36; Status DC Lactated Ringer's 1,000 ml @ 50 mls/hr Q20H IV ; Start 09/29/16 at 14:57; Stop 09/30/16 at 02:56; Status DC Propofol (Diprivan) 20 ml @ As Directed STK-MED ONCE IV ; Start 09/29/16 at 16: 33; Stop 09/29/16 at 16:34; Status DC Lidocaine HCl (Lidocaine Pf 2% Vial) 5 ml STK-MED ONCE .ROUTE ; Start 09/29/16 at 16:33; Stop 09/29/16 at 16:34; Status DC Succinylcholine Chloride (Anectine) 200 mg STK-MED ONCE .ROUTE ; Start 09/29/16 at 16:33; Stop 09/29/16 at 16:34; Status DC Dexamethasone Sodium Phosphate (Decadron) 4 mg STK-MED ONCE .ROUTE ; Start 09/29 at 16:36; Stop 09/29/16 at 16:37; Status DC Ondansetron HCl (Zofran) 4 mg STK-MED ONCE .ROUTE ; Start 09/29/16 at 16:36; Stop 09/29/16 at 16:37; Status DC Iohexol (Omnipaque 300 Mg/ml) 50 ml STK-MED ONCE .ROUTE ; Start 09/29/16 at 16: 38; Stop 09/29/16 at 16:39; Status DC Iohexol (Omnipaque 300 Mg/ml) 50 ml STK-MED ONCE IV Last administered on 17:28; Start 09/29/16 at 17:28; Stop 09/29/16 at 17:32; Status DC Cefpodoxime Proxetil (Vantin) 200 mg BID PO ; Start 09/30/16 at 21:00; Stop at 21:00; Status DC Cefpodoxime Proxetil (Vantin) 200 mg BID PO Last administered on 10/01/16 08: 51; Start 10/01/16 at 09:00 Metronidazole (Flagyl) 500 mg Q8HRS PO Last administered on 10/01/16 14:13; Start 09/30/16 at 22:00 Metoprolol Succinate (Toprol Xl) 25 mg DAILY PO Last administered on 10/01/16 10:34; Start 10/01/16 at 10:30 Simvastatin (Zocor) 40 mg QHS PO ; Start 10/01/16 at 21:00 Polyethylene Glycol 17 gm 17 gm PRN DAILY PRN PO CONSTIPATION Last administered on 10/01/16 11:52; Start 10/01/16 at 09:45 Magnesium Sulfate/ Dextrose (Magnesium Sulfate PREMIX 2GM) 50 ml @ 25 mls/hr 1X ONCE IV Last administered on 10/01/16 11:44; Start 10/01/16 at 11:30; Stop 10/01/16 at 13:29; Status DC Active Scripts Active Reported Metoprolol Succinate ( Xl ) (Metoprolol Succinate) 25 Mg Tab.er.24h 25 Mg PO DAILY Aspirin 81 Mg Tab.chew 1 Tab PO DAILY Simvastatin 20 Mg Tablet 40 Mg PO HS Vitals/I & O Vital Sign - Last 24 Hours 09/30/16 09/30/16 09/30/16 09/30/16 19:59 20:00 20:29 22:57 Temp 96.4 97.7 96.4 97.7 Pulse 67 67 71 Resp 18 18 B/P 112/44 112/44 139/49 Pulse Ox 94 98 O2 Delivery Room Air Room Air Room Air 10/01/16 10/01/16 10/01/16 10/01/16 03:59 07:00 07:00 09:00 Temp 97.7 98.4 98.4 97.7 98.4 98.4 Pulse 66 91 66 Resp 18 20 B/P 117/45 177/54 117/45 Pulse Ox 96 97 O2 Delivery Room Air Room Air 10/01/16 10/01/16 10:34 11:00 Temp 97.6 97.6 Pulse 66 63 Resp 20 B/P 117/45 119/76 Pulse Ox 97 O2 Delivery Room Air Intake and Output 09/30/16 09/30/16 10/01/16 15:00 23:00 07:00 Intake Total 700 ml 240 ml Output Total 600 ml 200 ml Balance 700 ml -360 ml -200 ml Problem List Problems Medical Problems: (1) Abdominal pain Status: Acute Assessment Biliary stricture, likely malignant, with ascending cholangitis-->bacteremia/ sepsis. Better after stenting. Plan of Care: Continue current Tx, Mgmt Plan of Care Note Await tumor marker, brushings. NATALIE GONZALEZ MD Oct 01, 2016 15:37
[2016-10-01 19:00] VITALS: BP 108/60
[2016-10-01] MEDS: SIMVASTATIN 40 MG TABLET. PO SCH (22:34)
[2016-10-01 23:02] VITALS: BP 113/64
[2016-10-02 03:00] VITALS: BP 122/73
[2016-10-02 04:56] LABS: BASO # 0.1 x10^3/uL (0.0-0.2); BASO % 1 % (0-3); EOS % 1 % (0-3); HEMATOCRIT 39.8 % (39.0-53.0); HEMOGLOBIN 12.9 g/dL (13.0-17.5); LYMPH # 1.3 x10^3/uL (1.0-4.8); LYMPH % 14 % (24-48); MEAN CORPUSCULAR HEMOGLOBIN 30 pg (25-35); MEAN CORPUSCULAR HGB CONC 33 g/dL (31-37); MEAN CORPUSCULAR VOLUME 93 fL (79-100); MONO % 9 % (0-9); NEUT % 75 % (31-73); PLATELET COUNT 151 x10^3/uL (140-400); RED BLOOD COUNT 4.26 x10^6/uL (4.30-5.70); RED CELL DISTRIBUTION WIDTH 13.3 % (11.5-14.5); WHITE BLOOD COUNT 9.4 x10^3/uL (4.0-11.0)
[2016-10-02 05:25] LABS: ALBUMIN/GLOBULIN RATIO 0.9 (1.0-1.7); CALCIUM 8.1 mg/dL (8.5-10.1); GFR 73.2; POTASSIUM 3.6 mmol/L (3.5-5.1); TOTAL BILIRUBIN 0.7 mg/dL (0.2-1.0); TOTAL PROTEIN 6.4 g/dL (6.4-8.2)
[2016-10-02] MEDS: METRONIDAZOLE 500 MG TABLET. PO SCH (06:23)
[2016-10-02 07:00] VITALS: BP 107/60
--- NOTE | 2016-10-02 10:05 | PDOC ---
Infectious Disease Note ROS ROS Vital Sign Vital Signs Vital Signs Date Time Temp Pulse Resp B/P Pulse Ox O2 Delivery O2 Flow Rate FiO2 10/02/16 07:00 97.5 80 18 107/60 98 Room Air 97.5 Labs Lab Laboratory Tests Test 10/02/16 03:50 White Blood Count 9.4x10^3/uL (4.0-11.0) Red Blood Count 4.26x10^6/uL (4.30-5.70) Hemoglobin 12.9g/dL (13.0-17.5) Hematocrit 39.8% (39.0-53.0) Mean Corpuscular Volume 93fL (79-100) Mean Corpuscular Hemoglobin 30pg (25-35) Mean Corpuscular Hemoglobin Concent 33g/dL (31-37) Red Cell Distribution Width 13.3% (11.5-14.5) Platelet Count 151x10^3/uL (140-400) Neutrophils (%) (Auto) 75% (31-73) Lymphocytes (%) (Auto) 14% (24-48) Monocytes (%) (Auto) 9% (0-9) Eosinophils (%) (Auto) 1% (0-3) Basophils (%) (Auto) 1% (0-3) Neutrophils # (Auto) 7.1x10^3uL (1.8-7.7) Lymphocytes # (Auto) 1.3x10^3/uL (1.0-4.8) Monocytes # (Auto) 0.8x10^3/uL (0.0-1.1) Eosinophils # (Auto) 0.1x10^3/uL (0.0-0.7) Basophils # (Auto) 0.1x10^3/uL (0.0-0.2) Sodium Level 144mmol/L (136-145) Potassium Level 3.6mmol/L (3.5-5.1) Chloride Level 106mmol/L (98-107) Carbon Dioxide Level 29mmol/L (21-32) Anion Gap 9 (6-14) Blood Urea Nitrogen 17mg/dL (8-26) Creatinine 1.0mg/dL (0.7-1.3) Estimated GFR (Cockcroft-Gault) 73.2 BUN/Creatinine Ratio 17 (6-20) Glucose Level 108mg/dL (70-99) Calcium Level 8.1mg/dL (8.5-10.1) Total Bilirubin 0.7mg/dL (0.2-1.0) Aspartate Amino Transf (AST/SGOT) 38U/L (15-37) Alanine Aminotransferase (ALT/SGPT) 89U/L (16-63) Alkaline Phosphatase 84U/L (46-116) Total Protein 6.4g/dL (6.4-8.2) Albumin 3.0g/dL (3.4-5.0) Albumin/Globulin Ratio 0.9 (1.0-1.7) Objective Assessment ? sepsis Plan Plan of Care Unable to see. Not in room. Chart reviewed Add Yenni perdue clarified STEVO RICHARDS MD Oct 02, 2016 10:05
[2016-10-02 11:00] VITALS: BP 125/64
--- NOTE | 2016-10-02 11:24 | PDOC ---
G I PROGRESS NOTE Reason for Follow-up Abd pain/fever/cholangitis Subjective Feeling better S/P stent Physical Exam Lungs clear CV S1 S2 Abd +BS, soft, nontender Review of Relevant I have reviewed the following items estephania (where applicable) has been applied. Labs Laboratory Tests Test 10/01/16 03:50 10/02/16 03:50 White Blood Count 13.8x10^3/uL (4.0-11.0) 9.4x10^3/uL (4.0-11.0) Red Blood Count 3.85x10^6/uL (4.30-5.70) 4.26x10^6/uL (4.30-5.70) Hemoglobin 11.7g/dL (13.0-17.5) 12.9g/dL (13.0-17.5) Hematocrit 35.7% (39.0-53.0) 39.8% (39.0-53.0) Mean Corpuscular Volume 93fL (79-100) 93fL (79-100) Mean Corpuscular Hemoglobin 30pg (25-35) 30pg (25-35) Mean Corpuscular Hemoglobin Concent 33g/dL (31-37) 33g/dL (31-37) Red Cell Distribution Width 13.6% (11.5-14.5) 13.3% (11.5-14.5) Platelet Count 139x10^3/uL (140-400) 151x10^3/uL (140-400) Neutrophils (%) (Auto) 88% (31-73) 75% (31-73) Lymphocytes (%) (Auto) 5% (24-48) 14% (24-48) Monocytes (%) (Auto) 7% (0-9) 9% (0-9) Eosinophils (%) (Auto) 0% (0-3) 1% (0-3) Basophils (%) (Auto) 0% (0-3) 1% (0-3) Neutrophils # (Auto) 12.1x10^3uL (1.8-7.7) 7.1x10^3uL (1.8-7.7) Lymphocytes # (Auto) 0.7x10^3/uL (1.0-4.8) 1.3x10^3/uL (1.0-4.8) Monocytes # (Auto) 1.0x10^3/uL (0.0-1.1) 0.8x10^3/uL (0.0-1.1) Eosinophils # (Auto) 0.0x10^3/uL (0.0-0.7) 0.1x10^3/uL (0.0-0.7) Basophils # (Auto) 0.0x10^3/uL (0.0-0.2) 0.1x10^3/uL (0.0-0.2) Sodium Level 143mmol/L (136-145) 144mmol/L (136-145) Potassium Level 4.1mmol/L (3.5-5.1) 3.6mmol/L (3.5-5.1) Chloride Level 108mmol/L (98-107) 106mmol/L (98-107) Carbon Dioxide Level 27mmol/L (21-32) 29mmol/L (21-32) Anion Gap 8 (6-14) 9 (6-14) Blood Urea Nitrogen 21mg/dL (8-26) 17mg/dL (8-26) Creatinine 1.0mg/dL (0.7-1.3) 1.0mg/dL (0.7-1.3) Estimated GFR (Cockcroft-Gault) 73.2 73.2 BUN/Creatinine Ratio 21 (6-20) 17 (6-20) Glucose Level 110mg/dL (70-99) 108mg/dL (70-99) Calcium Level 8.4mg/dL (8.5-10.1) 8.1mg/dL (8.5-10.1) Magnesium Level 1.9mg/dL (1.8-2.4) Total Bilirubin 0.9mg/dL (0.2-1.0) 0.7mg/dL (0.2-1.0) Aspartate Amino Transf (AST/SGOT) 70U/L (15-37) 38U/L (15-37) Alanine Aminotransferase (ALT/SGPT) 117U/L (16-63) 89U/L (16-63) Alkaline Phosphatase 86U/L (46-116) 84U/L (46-116) Total Protein 5.9g/dL (6.4-8.2) 6.4g/dL (6.4-8.2) Albumin 3.1g/dL (3.4-5.0) 3.0g/dL (3.4-5.0) Albumin/Globulin Ratio 1.1 (1.0-1.7) 0.9 (1.0-1.7) Laboratory Tests Test 10/02/16 03:50 White Blood Count 9.4x10^3/uL (4.0-11.0) Red Blood Count 4.26x10^6/uL (4.30-5.70) Hemoglobin 12.9g/dL (13.0-17.5) Hematocrit 39.8% (39.0-53.0) Mean Corpuscular Volume 93fL (79-100) Mean Corpuscular Hemoglobin 30pg (25-35) Mean Corpuscular Hemoglobin Concent 33g/dL (31-37) Red Cell Distribution Width 13.3% (11.5-14.5) Platelet Count 151x10^3/uL (140-400) Neutrophils (%) (Auto) 75% (31-73) Lymphocytes (%) (Auto) 14% (24-48) Monocytes (%) (Auto) 9% (0-9) Eosinophils (%) (Auto) 1% (0-3) Basophils (%) (Auto) 1% (0-3) Neutrophils # (Auto) 7.1x10^3uL (1.8-7.7) Lymphocytes # (Auto) 1.3x10^3/uL (1.0-4.8) Monocytes # (Auto) 0.8x10^3/uL (0.0-1.1) Eosinophils # (Auto) 0.1x10^3/uL (0.0-0.7) Basophils # (Auto) 0.1x10^3/uL (0.0-0.2) Sodium Level 144mmol/L (136-145) Potassium Level 3.6mmol/L (3.5-5.1) Chloride Level 106mmol/L (98-107) Carbon Dioxide Level 29mmol/L (21-32) Anion Gap 9 (6-14) Blood Urea Nitrogen 17mg/dL (8-26) Creatinine 1.0mg/dL (0.7-1.3) Estimated GFR (Cockcroft-Gault) 73.2 BUN/Creatinine Ratio 17 (6-20) Glucose Level 108mg/dL (70-99) Calcium Level 8.1mg/dL (8.5-10.1) Total Bilirubin 0.7mg/dL (0.2-1.0) Aspartate Amino Transf (AST/SGOT) 38U/L (15-37) Alanine Aminotransferase (ALT/SGPT) 89U/L (16-63) Alkaline Phosphatase 84U/L (46-116) Total Protein 6.4g/dL (6.4-8.2) Albumin 3.0g/dL (3.4-5.0) Albumin/Globulin Ratio 0.9 (1.0-1.7) Microbiology 10/01/16 Blood Culture - Preliminary, Resulted NO GROWTH AFTER 1 DAY Medications Current Medications Sodium Chloride (Iv Sodium Chloride 0.9% 500ml Bag) 500 ml @ 500 mls/hr 1X ONCE IV Last administered on 09/28/16 13:13; Start 09/28/16 at 12:45; Stop at 13:44; Status DC Ondansetron HCl (Zofran) 4 mg 1X ONCE IV Last administered on 09/28/16 13:08 ; Start 09/28/16 at 12:45; Stop 09/28/16 at 12:46; Status DC Fentanyl Citrate (Fentanyl 2ml Vial) 25 mcg PRN Q15MIN PRN IV PAIN GREATER THAN 3/10 Last administered on 09/28/16 13:13; Start 09/28/16 at 12:45; Stop at 12:44; Status DC Iohexol (Omnipaque 300 Mg/ml) 60 ml 1X ONCE IV Last administered on 09/28/16 12:52; Start 09/28/16 at 12:45; Stop 09/28/16 at 12:46; Status DC Info 1 each 1 each PRN DAILY PRN MC SEE COMMENTS; Start 09/28/16 at 13:00; Stop 09/30/16 at 12:59; Status DC Metronidazole 100 ml @ 100 mls/hr Q8HRS IV Last administered on 09/30/16 14: 09; Start 09/28/16 at 22:00; Stop 09/30/16 at 16:16; Status DC Metronidazole 100 ml @ 100 mls/hr 1X ONCE IV Last administered on 09/28/16 15:14; Start 09/28/16 at 14:30; Stop 09/28/16 at 15:29; Status DC Ceftriaxone Sodium 50 ml @ 100 mls/hr 1X ONCE IV Last administered on 15:15; Start 09/28/16 at 14:30; Stop 09/28/16 at 14:59; Status DC Ceftriaxone Sodium/Sodium Chloride (Rocephin/Iv Sodium Chloride 0.9% 50ml) 50 ml @ 100 mls/hr Q24H IV Last administered on 09/30/16 16:14; Start 09/29/16 at 15:00; Stop 09/30/16 at 16:16; Status DC Ondansetron HCl (Zofran) 4 mg PRN Q8HRS PRN IV NAUSEA/VOMITING; Start 09/28/16 at 15:15; Stop 09/29/16 at 15:14; Status DC Fentanyl Citrate 50 mcg 50 mcg PRN Q1HR PRN IV PAIN; Start 09/28/16 at 15:15; Stop 09/29/16 at 15:14; Status DC Sodium Chloride (Iv Sodium Chloride 0.9% 1000ml Bag) 1,000 ml @ 100 mls/hr Q10H IV Last administered on 09/29/16 08:53; Start 09/28/16 at 15:15; Stop at 15:14; Status DC Aspirin (Children'S Aspirin) 81 mg DAILY PO Last administered on 10/01/16 08: 51; Start 09/29/16 at 09:00 Metoprolol Tartrate (Lopressor) 25 mg BID PO Last administered on 09/30/16 09: 18; Start 09/28/16 at 21:00; Stop 10/01/16 at 09:17; Status DC Simvastatin 20 mg 20 mg DAILY PO ; Start 09/29/16 at 09:00; Stop 09/29/16 at 18: 36; Status DC Lactated Ringer's 1,000 ml @ 50 mls/hr Q20H IV ; Start 09/29/16 at 14:57; Stop 09/30/16 at 02:56; Status DC Propofol (Diprivan) 20 ml @ As Directed STK-MED ONCE IV ; Start 09/29/16 at 16: 33; Stop 09/29/16 at 16:34; Status DC Lidocaine HCl (Lidocaine Pf 2% Vial) 5 ml STK-MED ONCE .ROUTE ; Start 09/29/16 at 16:33; Stop 09/29/16 at 16:34; Status DC Succinylcholine Chloride (Anectine) 200 mg STK-MED ONCE .ROUTE ; Start 09/29/16 at 16:33; Stop 09/29/16 at 16:34; Status DC Dexamethasone Sodium Phosphate (Decadron) 4 mg STK-MED ONCE .ROUTE ; Start 09/29 at 16:36; Stop 09/29/16 at 16:37; Status DC Ondansetron HCl (Zofran) 4 mg STK-MED ONCE .ROUTE ; Start 09/29/16 at 16:36; Stop 09/29/16 at 16:37; Status DC Iohexol (Omnipaque 300 Mg/ml) 50 ml STK-MED ONCE .ROUTE ; Start 09/29/16 at 16: 38; Stop 09/29/16 at 16:39; Status DC Iohexol (Omnipaque 300 Mg/ml) 50 ml STK-MED ONCE IV Last administered on 17:28; Start 09/29/16 at 17:28; Stop 09/29/16 at 17:32; Status DC Cefpodoxime Proxetil (Vantin) 200 mg BID PO ; Start 09/30/16 at 21:00; Stop at 21:00; Status DC Cefpodoxime Proxetil (Vantin) 200 mg BID PO Last administered on 10/01/16 22: 35; Start 10/01/16 at 09:00; Stop 10/02/16 at 10:04; Status DC Metronidazole (Flagyl) 500 mg Q8HRS PO Last administered on 10/02/16 06:23; Start 09/30/16 at 22:00; Stop 10/02/16 at 10:04; Status DC Metoprolol Succinate (Toprol Xl) 25 mg DAILY PO Last administered on 10/01/16 10:34; Start 10/01/16 at 10:30 Simvastatin (Zocor) 40 mg QHS PO Last administered on 10/01/16 22:34; Start at 21:00 Polyethylene Glycol 17 gm 17 gm PRN DAILY PRN PO CONSTIPATION Last administered on 10/01/16 11:52; Start 10/01/16 at 09:45 Magnesium Sulfate/ Dextrose 50 ml @ 25 mls/hr 1X ONCE IV Last administered on 10/01/16 11:44; Start 10/01/16 at 11:30; Stop 10/01/16 at 13:29; Status DC Piperacillin Sod/ Tazobactam Sod/ Sodium Chloride (Zosyn/Iv Sodium Chloride 0.9 % 50ml) 50 ml @ 100 mls/hr Q6HRS IV ; Start 10/02/16 at 12:00 Active Scripts Active Reported Metoprolol Succinate ( Xl ) (Metoprolol Succinate) 25 Mg Tab.er.24h 25 Mg PO DAILY Aspirin 81 Mg Tab.chew 1 Tab PO DAILY Simvastatin 20 Mg Tablet 40 Mg PO HS Vitals/I & O Vital Sign - Last 24 Hours 10/01/16 10/01/16 10/01/16 10/01/16 15:00 19:00 20:00 23:02 Temp 98.1 97.7 98.2 98.1 97.7 98.2 Pulse 88 81 68 Resp 20 B/P 120/68 108/60 113/64 Pulse Ox 98 100 97 O2 Delivery Room Air Room Air Room Air Room Air 10/02/16 10/02/16 03:00 07:00 Temp 98.0 97.5 98.0 97.5 Pulse 74 80 Resp B/P 122/73 107/60 Pulse Ox 98 98 O2 Delivery Room Air Room Air Intake and Output 10/01/16 10/01/16 10/02/16 14:59 22:59 06:59 Intake Total 710 ml 840 ml Output Total 500 ml 1050 ml Balance 210 ml 840 ml -1050 ml Problem List Problems Medical Problems: (1) Abdominal pain Status: Acute Assessment Obstructive jaundice- S/p stent with cholangitis and positive blood cultures, await brush cytology and tumor markers, malignancy leads differential PROPECK,NICOLÁS Alejandre MD Oct 02, 2016 11:23
[2016-10-02] MEDS: PIPERACILLIN/TAZOBACTAM 3.375 GM in IV NORMAL SALINE 50ML 50 ML IV SCH ×2 (11:43→17:16)
[2016-10-02] MEDS: ASPIRIN CHEWABLE 81 MG TABLET. PO SCH (11:43)
[2016-10-02] MEDS: METOPROLOL SUCC 24HR ER 25 MG TAB.ER.24H. PO SCH (11:45)
--- NOTE | 2016-10-02 12:10 | PDOC ---
PROGRESS NOTES Subjective Subjective He stayed NPO this am thinking he would have a stress test but none ordered, he has since had an episode of PAF, ID consulted to guide abx as he has 3 organisms on culture so far. He feels no abdominal pain of significance, he understands his stent in his duct is rather small and will likely occlude and need replacing, no path back yet Objective Objective Vital Signs Date Time Temp Pulse Resp B/P Pulse Ox O2 Delivery O2 Flow Rate FiO2 10/02/16 11:45 74 125/64 10/02/16 07:00 97.5 18 98 Room Air 97.5 09/29/16 17:50 8 Intake and Output 10/02/16 06:59 Intake Total 1550 ml Output Total 1550 ml Balance 0 ml Intake Oral 1500 ml IV Total 50 ml Output Urine Total 1550 ml Physical Exam Abdomen: Normal bowel sounds, Soft Heart: Regular rate Extremities: No clubbing, No cyanosis General: Alert, Oriented X3, Cooperative HEENT: Atraumatic Lungs: Clear to auscultation MUSCULOSKELETAL: No joint tenderness Neck: Supple Neuro: Normal speech Psych/Mental Status: Mental status NL, Mood NL Skin: No rashes, No breakdown Assessment Assessment Problems Medical Problems: (1) Abdominal pain Status: Acute Plan Plan of Care awaiting path, ID now asked to see to guide abx choices, cardiology following also Comment Review of Relevant I have reviewed the following items estephania (where applicable) has been applied. Labs Laboratory Tests Test 10/01/16 03:50 10/02/16 03:50 White Blood Count 13.8x10^3/uL (4.0-11.0) 9.4x10^3/uL (4.0-11.0) Red Blood Count 3.85x10^6/uL (4.30-5.70) 4.26x10^6/uL (4.30-5.70) Hemoglobin 11.7g/dL (13.0-17.5) 12.9g/dL (13.0-17.5) Hematocrit 35.7% (39.0-53.0) 39.8% (39.0-53.0) Mean Corpuscular Volume 93fL (79-100) 93fL (79-100) Mean Corpuscular Hemoglobin 30pg (25-35) 30pg (25-35) Mean Corpuscular Hemoglobin Concent 33g/dL (31-37) 33g/dL (31-37) Red Cell Distribution Width 13.6% (11.5-14.5) 13.3% (11.5-14.5) Platelet Count 139x10^3/uL (140-400) 151x10^3/uL (140-400) Neutrophils (%) (Auto) 88% (31-73) 75% (31-73) Lymphocytes (%) (Auto) 5% (24-48) 14% (24-48) Monocytes (%) (Auto) 7% (0-9) 9% (0-9) Eosinophils (%) (Auto) 0% (0-3) 1% (0-3) Basophils (%) (Auto) 0% (0-3) 1% (0-3) Neutrophils # (Auto) 12.1x10^3uL (1.8-7.7) 7.1x10^3uL (1.8-7.7) Lymphocytes # (Auto) 0.7x10^3/uL (1.0-4.8) 1.3x10^3/uL (1.0-4.8) Monocytes # (Auto) 1.0x10^3/uL (0.0-1.1) 0.8x10^3/uL (0.0-1.1) Eosinophils # (Auto) 0.0x10^3/uL (0.0-0.7) 0.1x10^3/uL (0.0-0.7) Basophils # (Auto) 0.0x10^3/uL (0.0-0.2) 0.1x10^3/uL (0.0-0.2) Sodium Level 143mmol/L (136-145) 144mmol/L (136-145) Potassium Level 4.1mmol/L (3.5-5.1) 3.6mmol/L (3.5-5.1) Chloride Level 108mmol/L (98-107) 106mmol/L (98-107) Carbon Dioxide Level 27mmol/L (21-32) 29mmol/L (21-32) Anion Gap 8 (6-14) 9 (6-14) Blood Urea Nitrogen 21mg/dL (8-26) 17mg/dL (8-26) Creatinine 1.0mg/dL (0.7-1.3) 1.0mg/dL (0.7-1.3) Estimated GFR (Cockcroft-Gault) 73.2 73.2 BUN/Creatinine Ratio 21 (6-20) 17 (6-20) Glucose Level 110mg/dL (70-99) 108mg/dL (70-99) Calcium Level 8.4mg/dL (8.5-10.1) 8.1mg/dL (8.5-10.1) Magnesium Level 1.9mg/dL (1.8-2.4) Total Bilirubin 0.9mg/dL (0.2-1.0) 0.7mg/dL (0.2-1.0) Aspartate Amino Transf (AST/SGOT) 70U/L (15-37) 38U/L (15-37) Alanine Aminotransferase (ALT/SGPT) 117U/L (16-63) 89U/L (16-63) Alkaline Phosphatase 86U/L (46-116) 84U/L (46-116) Total Protein 5.9g/dL (6.4-8.2) 6.4g/dL (6.4-8.2) Albumin 3.1g/dL (3.4-5.0) 3.0g/dL (3.4-5.0) Albumin/Globulin Ratio 1.1 (1.0-1.7) 0.9 (1.0-1.7) Laboratory Tests Test 10/02/16 03:50 White Blood Count 9.4x10^3/uL (4.0-11.0) Red Blood Count 4.26x10^6/uL (4.30-5.70) Hemoglobin 12.9g/dL (13.0-17.5) Hematocrit 39.8% (39.0-53.0) Mean Corpuscular Volume 93fL (79-100) Mean Corpuscular Hemoglobin 30pg (25-35) Mean Corpuscular Hemoglobin Concent 33g/dL (31-37) Red Cell Distribution Width 13.3% (11.5-14.5) Platelet Count 151x10^3/uL (140-400) Neutrophils (%) (Auto) 75% (31-73) Lymphocytes (%) (Auto) 14% (24-48) Monocytes (%) (Auto) 9% (0-9) Eosinophils (%) (Auto) 1% (0-3) Basophils (%) (Auto) 1% (0-3) Neutrophils # (Auto) 7.1x10^3uL (1.8-7.7) Lymphocytes # (Auto) 1.3x10^3/uL (1.0-4.8) Monocytes # (Auto) 0.8x10^3/uL (0.0-1.1) Eosinophils # (Auto) 0.1x10^3/uL (0.0-0.7) Basophils # (Auto) 0.1x10^3/uL (0.0-0.2) Sodium Level 144mmol/L (136-145) Potassium Level 3.6mmol/L (3.5-5.1) Chloride Level 106mmol/L (98-107) Carbon Dioxide Level 29mmol/L (21-32) Anion Gap 9 (6-14) Blood Urea Nitrogen 17mg/dL (8-26) Creatinine 1.0mg/dL (0.7-1.3) Estimated GFR (Cockcroft-Gault) 73.2 BUN/Creatinine Ratio 17 (6-20) Glucose Level 108mg/dL (70-99) Calcium Level 8.1mg/dL (8.5-10.1) Total Bilirubin 0.7mg/dL (0.2-1.0) Aspartate Amino Transf (AST/SGOT) 38U/L (15-37) Alanine Aminotransferase (ALT/SGPT) 89U/L (16-63) Alkaline Phosphatase 84U/L (46-116) Total Protein 6.4g/dL (6.4-8.2) Albumin 3.0g/dL (3.4-5.0) Albumin/Globulin Ratio 0.9 (1.0-1.7) Microbiology 10/01/16 Blood Culture - Preliminary, Resulted NO GROWTH AFTER 1 DAY Medications Current Medications Sodium Chloride (Iv Sodium Chloride 0.9% 500ml Bag) 500 ml @ 500 mls/hr 1X ONCE IV Last administered on 09/28/16t 13:13; Start 09/28/16 at 12:45; Stop at 13:44; Status DC Ondansetron HCl (Zofran) 4 mg 1X ONCE IV Last administered on 09/28/16 13:08 ; Start 09/28/16 at 12:45; Stop 09/28/16 at 12:46; Status DC Fentanyl Citrate (Fentanyl 2ml Vial) 25 mcg PRN Q15MIN PRN IV PAIN GREATER THAN 3/10 Last administered on 09/28/16 13:13; Start 09/28/16 at 12:45; Stop at 12:44; Status DC Iohexol (Omnipaque 300 Mg/ml) 60 ml 1X ONCE IV Last administered on 09/28/16 12:52; Start 09/28/16 at 12:45; Stop 09/28/16 at 12:46; Status DC Info 1 each 1 each PRN DAILY PRN MC SEE COMMENTS; Start 09/28/16 at 13:00; Stop 09/30/16 at 12:59; Status DC Metronidazole 100 ml @ 100 mls/hr Q8HRS IV Last administered on 09/30/16 14: 09; Start 09/28/16 at 22:00; Stop 09/30/16 at 16:16; Status DC Metronidazole 100 ml @ 100 mls/hr 1X ONCE IV Last administered on 09/28/16 15:14; Start 09/28/16 at 14:30; Stop 09/28/16 at 15:29; Status DC Ceftriaxone Sodium 50 ml @ 100 mls/hr 1X ONCE IV Last administered on 15:15; Start 09/28/16 at 14:30; Stop 09/28/16 at 14:59; Status DC Ceftriaxone Sodium/Sodium Chloride (Rocephin/Iv Sodium Chloride 0.9% 50ml) 50 ml @ 100 mls/hr Q24H IV Last administered on 09/30/16 16:14; Start 09/29/16 at 15:00; Stop 09/30/16 at 16:16; Status DC Ondansetron HCl (Zofran) 4 mg PRN Q8HRS PRN IV NAUSEA/VOMITING; Start 09/28/16 at 15:15; Stop 09/29/16 at 15:14; Status DC Fentanyl Citrate 50 mcg 50 mcg PRN Q1HR PRN IV PAIN; Start 09/28/16 at 15:15; Stop 09/29/16 at 15:14; Status DC Sodium Chloride (Iv Sodium Chloride 0.9% 1000ml Bag) 1,000 ml @ 100 mls/hr Q10H IV Last administered on 09/29/16 08:53; Start 09/28/16 at 15:15; Stop at 15:14; Status DC Aspirin (Children'S Aspirin) 81 mg DAILY PO Last administered on 10/02/16 11: 43; Start 09/29/16 at 09:00 Metoprolol Tartrate (Lopressor) 25 mg BID PO Last administered on 09/30/16 09: 18; Start 09/28/16 at 21:00; Stop 10/01/16 at 09:17; Status DC Simvastatin 20 mg 20 mg DAILY PO ; Start 09/29/16 at 09:00; Stop 09/29/16 at 18: 36; Status DC Lactated Ringer's 1,000 ml @ 50 mls/hr Q20H IV ; Start 09/29/16 at 14:57; Stop 09/30/16 at 02:56; Status DC Propofol (Diprivan) 20 ml @ As Directed STK-MED ONCE IV ; Start 09/29/16 at 16: 33; Stop 09/29/16 at 16:34; Status DC Lidocaine HCl (Lidocaine Pf 2% Vial) 5 ml STK-MED ONCE .ROUTE ; Start 09/29/16 at 16:33; Stop 09/29/16 at 16:34; Status DC Succinylcholine Chloride (Anectine) 200 mg STK-MED ONCE .ROUTE ; Start 09/29/16 at 16:33; Stop 09/29/16 at 16:34; Status DC Dexamethasone Sodium Phosphate (Decadron) 4 mg STK-MED ONCE .ROUTE ; Start 09/29 at 16:36; Stop 09/29/16 at 16:37; Status DC Ondansetron HCl (Zofran) 4 mg STK-MED ONCE .ROUTE ; Start 09/29/16 at 16:36; Stop 09/29/16 at 16:37; Status DC Iohexol (Omnipaque 300 Mg/ml) 50 ml STK-MED ONCE .ROUTE ; Start 09/29/16 at 16: 38; Stop 09/29/16 at 16:39; Status DC Iohexol (Omnipaque 300 Mg/ml) 50 ml STK-MED ONCE IV Last administered on 17:28; Start 09/29/16 at 17:28; Stop 09/29/16 at 17:32; Status DC Cefpodoxime Proxetil (Vantin) 200 mg BID PO ; Start 09/30/16 at 21:00; Stop at 21:00; Status DC Cefpodoxime Proxetil (Vantin) 200 mg BID PO Last administered on 10/01/16 22: 35; Start 10/01/16 at 09:00; Stop 10/02/16 at 10:04; Status DC Metronidazole (Flagyl) 500 mg Q8HRS PO Last administered on 10/02/16 06:23; Start 09/30/16 at 22:00; Stop 10/02/16 at 10:04; Status DC Metoprolol Succinate (Toprol Xl) 25 mg DAILY PO Last administered on 10/02/16 11:45; Start 10/01/16 at 10:30 Simvastatin (Zocor) 40 mg QHS PO Last administered on 10/01/16 22:34; Start at 21:00 Polyethylene Glycol 17 gm 17 gm PRN DAILY PRN PO CONSTIPATION Last administered on 10/01/16 11:52; Start 10/01/16 at 09:45 Magnesium Sulfate/ Dextrose 50 ml @ 25 mls/hr 1X ONCE IV Last administered on 10/01/16 11:44; Start 10/01/16 at 11:30; Stop 10/01/16 at 13:29; Status DC Piperacillin Sod/ Tazobactam Sod/ Sodium Chloride (Zosyn/Iv Sodium Chloride 0.9 % 50ml) 50 ml @ 100 mls/hr Q6HRS IV Last administered on 10/02/16 11:43; Start 10/02/16 at 12:00 Active Scripts Active Reported Metoprolol Succinate ( Xl ) (Metoprolol Succinate) 25 Mg Tab.er.24h 25 Mg PO DAILY Aspirin 81 Mg Tab.chew 1 Tab PO DAILY Simvastatin 20 Mg Tablet 40 Mg PO HS Vitals/I & O Vital Sign - Last 24 Hours 4/10/01/16 10/01/16 10/01/16 15:00 19:00 20:00 23:02 Temp 98.1 97.7 98.2 98.1 97.7 98.2 Pulse 88 81 68 Resp B/P 120/68 108/60 113/64 Pulse Ox 98 100 97 O2 Delivery Room Air Room Air Room Air Room Air 10/02/16 10/02/16 10/02/16 03:00 07:00 11:45 Temp 98.0 97.5 98.0 97.5 Pulse 74 80 74 Resp B/P 122/73 107/60 125/64 Pulse Ox 98 98 O2 Delivery Room Air Room Air Intake and Output 10/01/16 10/01/16 10/02/16 14:59 22:59 06:59 Intake Total 710 ml 840 ml Output Total 500 ml 1050 ml Balance 210 ml 840 ml -1050 ml WARD EDDY MD Oct 02, 2016 12:10
--- NOTE | 2016-10-02 14:02 | PDOC ---
LATOSHA MIRAMONTES IT [employer]PPORT MANAGER 10/02/16 1402: CARDIO Progress Notes Date and Time Date of Service 10/02/16 Time of Evaluation 1356 Subjective Subjective: No Chest Pain, No shortness of breath, No Palpitations, No Dizziness Vitals Vitals Vital Signs Date Time Temp Pulse Resp B/P Pulse Ox O2 Delivery O2 Flow Rate FiO2 10/02/16 11:45 74 125/64 10/02/16 11:00 97.9 18 98 Room Air 97.9 Weight Weight [ ] Input and Output Intake and Output Intake and Output 10/02/16 06:59 Intake Total 1550 ml Output Total 1550 ml Balance 0 ml Intake Oral 1500 ml IV Total 50 ml Output Urine Total 1550 ml Laboratory Labs Laboratory Tests Test 10/02/16 03:50 White Blood Count 9.4x10^3/uL (4.0-11.0) Red Blood Count 4.26x10^6/uL (4.30-5.70) Hemoglobin 12.9g/dL (13.0-17.5) Hematocrit 39.8% (39.0-53.0) Mean Corpuscular Volume 93fL (79-100) Mean Corpuscular Hemoglobin 30pg (25-35) Mean Corpuscular Hemoglobin Concent 33g/dL (31-37) Red Cell Distribution Width 13.3% (11.5-14.5) Platelet Count 151x10^3/uL (140-400) Neutrophils (%) (Auto) 75% (31-73) Lymphocytes (%) (Auto) 14% (24-48) Monocytes (%) (Auto) 9% (0-9) Eosinophils (%) (Auto) 1% (0-3) Basophils (%) (Auto) 1% (0-3) Neutrophils # (Auto) 7.1x10^3uL (1.8-7.7) Lymphocytes # (Auto) 1.3x10^3/uL (1.0-4.8) Monocytes # (Auto) 0.8x10^3/uL (0.0-1.1) Eosinophils # (Auto) 0.1x10^3/uL (0.0-0.7) Basophils # (Auto) 0.1x10^3/uL (0.0-0.2) Sodium Level 144mmol/L (136-145) Potassium Level 3.6mmol/L (3.5-5.1) Chloride Level 106mmol/L (98-107) Carbon Dioxide Level 29mmol/L (21-32) Anion Gap 9 (6-14) Blood Urea Nitrogen 17mg/dL (8-26) Creatinine 1.0mg/dL (0.7-1.3) Estimated GFR (Cockcroft-Gault) 73.2 BUN/Creatinine Ratio 17 (6-20) Glucose Level 108mg/dL (70-99) Calcium Level 8.1mg/dL (8.5-10.1) Total Bilirubin 0.7mg/dL (0.2-1.0) Aspartate Amino Transf (AST/SGOT) 38U/L (15-37) Alanine Aminotransferase (ALT/SGPT) 89U/L (16-63) Alkaline Phosphatase 84U/L (46-116) Total Protein 6.4g/dL (6.4-8.2) Albumin 3.0g/dL (3.4-5.0) Albumin/Globulin Ratio 0.9 (1.0-1.7) Microbiology Micro Microbiology 10/01/16 Blood Culture - Preliminary, Resulted NO GROWTH AFTER 1 DAY Physical Exam HEENT: Neck Supple W Full Motion Chest: Symmetric LUNGS: Clear to Auscultation Heart: S1S2, irregularly irregular, other (tele: atrial fib/flutter) Abdomen: Soft N/T Extremities: No Edema Neurology: alert, oriented, follow commands Assessment Assessment 1. Obstructive jaundice and ascending cholangitis- s/p ERCP with stent placement. per GI 2. Hypertension - controlled 3. Hyperlipidemia - statins 4. Cardiac arrhythmia tele currently atrial fib/flutter rate controlled records requested from [facility] again ? [facility] for stroke prevention LISA KELSEY MD 10/02/16 1914: CARDIO Progress Notes Assessment Assessment Patient seen and examined. Agree with EPIC APPLICATION COORDINATOR's assessment and plan. Atrial fib rate controlled - prob recurrent We will obtain records from primary traffic rate computer's office Start oral anticoagulation when okay with Surgery/GI teams LATOSHA MIRAMONTES APRN Oct 02, 2016 14:02 LISA KELSEY MD Oct 02, 2016 19:14
[2016-10-02] MEDS ORDERED: POTASSIUM CHLORIDE 20 MEQ TABLET.ER. PO ONE (14:15)
[2016-10-02 15:00] VITALS: BP 108/58
--- NOTE | 2016-10-02 15:40 | CARD ---
APPROVED REPORT EXAM: Two-dimensional and M-mode echocardiogram with Doppler and color Doppler. Other Information Quality : GoodHR: 168bpm INDICATION Arrhythmia 2D DIMENSIONS RVDd2.9 (2.9-3.5cm)Left Atrium(2D)3.0 (1.6-4.0cm) IVSd1.2 (0.7-1.1cm)Aortic Root(2D)2.8 (2.0-3.7cm) LVDd4.0 (3.9-5.9cm)LVOT Diameter2.1 (1.8-2.4cm) PWd1.2 (0.7-1.1cm)LVDs3.2 (2.5-4.0cm) FS (%) 21.0 %SV31.1 ml Aortic Valve AoV Peak Cyrus.134.4cm/sAoV VTI26.2cm AO Peak GR.7.2mmHgLVOT Peak Cyrus.91.9cm/s LVOT VTI 21.81cmAO Mean GR.4mmHg DONNA (VMAX)2.51uu7BKW (VTI)3.00cm2 Mitral Valve MV E Luusqfsa17.1cm/sMV DECEL PIOR189dy MV A Zjnlovjx94.7cm/sMV E Mean Gr.1mmHg MV EDO16ldX/A Ratio1.3 MV A Tweoqxkq641rzBKC (PHT)4.92cm2 TDI E/Lateral E'5.9E/Medial E'9.1 Pulmonary Valve PV Peak Vndjovuq40.8cm/sPV Peak Grad.4mmHg RVOT VTI11.2cm Tricuspid Valve TR P. Ymlfvvhs460vs/sRAP FEAMAPDL1btFc TR Peak Gr.67gvLuDHRV71wrLz LEFT VENTRICLE The left ventricle is normal size. There is mild concentric left ventricular hypertrophy. Left ventri nava systolic function is low normal. The Ejection Fraction is 50-55%. There is normal LV segmental wa ll motion. Unable to assess due to irregular rhythm. There is no ventricular septal defect visualized . RIGHT VENTRICLE The right ventricle is normal size. The right ventricular systolic function is normal. ATRIA The left atrium size is normal. The right atrium size is normal. The interatrial septum is intact wit h no evidence for an atrial septal defect or patent foramen ovale as noted on 2-D or Doppler imaging. AORTIC VALVE The aortic valve is calcified but opens well. Doppler and Color Flow revealed mild aortic regurgitati on. There is no significant aortic valvular stenosis. MITRAL VALVE The mitral valve leaflets are calcified but opens well Mitral annular calcification is mild.. There i s no evidence of mitral valve prolapse. There is no mitral valve stenosis. Doppler and Color Flow rev ealed mild to moderate mitral regurgitation. TRICUSPID VALVE The tricuspid valve is normal in structure and function. Doppler and Color Flow revealed trace tricus pid regurgitation. The PA pressure was estimated at 15 mmHg. PULMONIC VALVE The pulmonary valve is normal in structure and function. Doppler and Color Flow revealed trace pulmon ic valvular regurgitation. GREAT VESSELS The aortic root is normal in size. The ascending aorta is normal in size. The IVC is normal in size a nd collapses >50% with inspiration. PERICARDIAL EFFUSION There is no pleural effusion. There is no evidence of significant pericardial effusion. Critical Notification Critical Value: No <Conclusion> The left ventricle is normal size. Left ventricle systolic function is low normal. The Ejection Fraction is 50-55%. There is mild concentric left ventricular hypertrophy. There is no significant aortic valvular stenosis. Doppler and Color Flow revealed mild aortic regurgitation. Doppler and Color Flow revealed mild to moderate mitral regurgitation. Doppler and Color Flow revealed trace tricuspid regurgitation. The PA pressure was estimated at 15 mmHg.
[2016-10-02 19:00] VITALS: BP 111/58
[2016-10-02] MEDS: SIMVASTATIN 40 MG TABLET. PO SCH (21:58)
[2016-10-02] MEDS: POLYETHYLENE GLYCOL 3350 17 GM PACKET. PO PRN (21:59)
[2016-10-02 22:34] VITALS: BP 131/61
[2016-10-03 07:00] VITALS: BP 105/58
[2016-10-03] MEDS: PIPERACILLIN/TAZOBACTAM 3.375 GM in IV NORMAL SALINE 50ML 50 ML IV SCH ×5 (08:20→16:15)
[2016-10-03] MEDS: ASPIRIN CHEWABLE 81 MG TABLET. PO SCH (08:20)
[2016-10-03] MEDS: METOPROLOL SUCC 24HR ER 25 MG TAB.ER.24H. PO SCH ×3 (08:21→10:19)
--- NOTE | 2016-10-03 08:48 | PDOC ---
PROGRESS NOTES Subjective Subjective Mr. Louis was seen in his lying in his bed this morning. He reported no acute overnight events. Patient reported to have been visited by cardiology at which time his a fib/flutter was explained to him. Patient denied chest pain, SOB, palpitations, and N/V, his bilirubin is back to normal, path pending but his urine is still dark in his bedside urinal. Objective Objective Vital Signs Date Time Temp Pulse Resp B/P Pulse Ox O2 Delivery O2 Flow Rate FiO2 10/03/16 08:22 56 105/58 10/03/16 08:00 Room Air 8.0 10/03/16 07:00 97.7 18 97 97.7 Intake and Output 10/03/16 07:00 Intake Total 200 ml Output Total 650 ml Balance -450 ml Intake Oral 200 ml Output Urine Total 650 ml # Voids 4 Physical Exam Abdomen: Normal bowel sounds, Soft, No hepatosplenomegaly Heart: Normal S1, Normal S2, No murmurs, Other (Irregularly irregular rhythm. ) Extremities: No clubbing General: Alert, Oriented X3, Cooperative, No acute distress HEENT: Atraumatic Lungs: Clear to auscultation Neck: Supple, No JVD Neuro: Normal speech Skin: No rashes, No breakdown, Other Assessment Assessment Problems Medical Problems: (1) Abdominal pain - resolving, secondary to biliary ductal stenosis, ascending cholangitis,s/p stent ERCP awaiting path report, on IV antibiotics for multi- organism sepsis, 2nd set of cultures negative (2) PAF - cardiology following and considering OAC Status: Acute Comment Review of Relevant I have reviewed the following items estephania (where applicable) has been applied. Labs Laboratory Tests Test 10/02/16 03:50 White Blood Count 9.4x10^3/uL (4.0-11.0) Red Blood Count 4.26x10^6/uL (4.30-5.70) Hemoglobin 12.9g/dL (13.0-17.5) Hematocrit 39.8% (39.0-53.0) Mean Corpuscular Volume 93fL (79-100) Mean Corpuscular Hemoglobin 30pg (25-35) Mean Corpuscular Hemoglobin Concent 33g/dL (31-37) Red Cell Distribution Width 13.3% (11.5-14.5) Platelet Count 151x10^3/uL (140-400) Neutrophils (%) (Auto) 75% (31-73) Lymphocytes (%) (Auto) 14% (24-48) Monocytes (%) (Auto) 9% (0-9) Eosinophils (%) (Auto) 1% (0-3) Basophils (%) (Auto) 1% (0-3) Neutrophils # (Auto) 7.1x10^3uL (1.8-7.7) Lymphocytes # (Auto) 1.3x10^3/uL (1.0-4.8) Monocytes # (Auto) 0.8x10^3/uL (0.0-1.1) Eosinophils # (Auto) 0.1x10^3/uL (0.0-0.7) Basophils # (Auto) 0.1x10^3/uL (0.0-0.2) Sodium Level 144mmol/L (136-145) Potassium Level 3.6mmol/L (3.5-5.1) Chloride Level 106mmol/L (98-107) Carbon Dioxide Level 29mmol/L (21-32) Anion Gap 9 (6-14) Blood Urea Nitrogen 17mg/dL (8-26) Creatinine 1.0mg/dL (0.7-1.3) Estimated GFR (Cockcroft-Gault) 73.2 BUN/Creatinine Ratio 17 (6-20) Glucose Level 108mg/dL (70-99) Calcium Level 8.1mg/dL (8.5-10.1) Total Bilirubin 0.7mg/dL (0.2-1.0) Aspartate Amino Transf (AST/SGOT) 38U/L (15-37) Alanine Aminotransferase (ALT/SGPT) 89U/L (16-63) Alkaline Phosphatase 84U/L (46-116) Total Protein 6.4g/dL (6.4-8.2) Albumin 3.0g/dL (3.4-5.0) Albumin/Globulin Ratio 0.9 (1.0-1.7) Microbiology 10/01/16 Blood Culture - Preliminary, Resulted NO GROWTH AFTER 2 DAYS Medications Current Medications Sodium Chloride (Iv Sodium Chloride 0.9% 500ml Bag) 500 ml @ 500 mls/hr 1X ONCE IV Last administered on 09/28/16t 13:13; Start 09/28/16 at 12:45; Stop at 13:44; Status DC Ondansetron HCl (Zofran) 4 mg 1X ONCE IV Last administered on 09/28/16 13:08 ; Start 09/28/16 at 12:45; Stop 09/28/16 at 12:46; Status DC Fentanyl Citrate (Fentanyl 2ml Vial) 25 mcg PRN Q15MIN PRN IV PAIN GREATER THAN 3/10 Last administered on 09/28/16 13:13; Start 09/28/16 at 12:45; Stop at 12:44; Status DC Iohexol (Omnipaque 300 Mg/ml) 60 ml 1X ONCE IV Last administered on 09/28/16 12:52; Start 09/28/16 at 12:45; Stop 09/28/16 at 12:46; Status DC Info 1 each 1 each PRN DAILY PRN MC SEE COMMENTS; Start 09/28/16 at 13:00; Stop 09/30/16 at 12:59; Status DC Metronidazole 100 ml @ 100 mls/hr Q8HRS IV Last administered on 09/30/16 14: 09; Start 09/28/16 at 22:00; Stop 09/30/16 at 16:16; Status DC Metronidazole 100 ml @ 100 mls/hr 1X ONCE IV Last administered on 09/28/16 15:14; Start 09/28/16 at 14:30; Stop 09/28/16 at 15:29; Status DC Ceftriaxone Sodium 50 ml @ 100 mls/hr 1X ONCE IV Last administered on 15:15; Start 09/28/16 at 14:30; Stop 09/28/16 at 14:59; Status DC Ceftriaxone Sodium/Sodium Chloride (Rocephin/Iv Sodium Chloride 0.9% 50ml) 50 ml @ 100 mls/hr Q24H IV Last administered on 09/30/16 16:14; Start 09/29/16 at 15:00; Stop 09/30/16 at 16:16; Status DC Ondansetron HCl (Zofran) 4 mg PRN Q8HRS PRN IV NAUSEA/VOMITING; Start 09/28/16 at 15:15; Stop 09/29/16 at 15:14; Status DC Fentanyl Citrate 50 mcg 50 mcg PRN Q1HR PRN IV PAIN; Start 09/28/16 at 15:15; Stop 09/29/16 at 15:14; Status DC Sodium Chloride (Iv Sodium Chloride 0.9% 1000ml Bag) 1,000 ml @ 100 mls/hr Q10H IV Last administered on 09/29/16 08:53; Start 09/28/16 at 15:15; Stop at 15:14; Status DC Aspirin (Children'S Aspirin) 81 mg DAILY PO Last administered on 10/03/16 08: 20; Start 09/29/16 at 09:00 Metoprolol Tartrate (Lopressor) 25 mg BID PO Last administered on 09/30/16 09: 18; Start 09/28/16 at 21:00; Stop 10/01/16 at 09:17; Status DC Simvastatin 20 mg 20 mg DAILY PO ; Start 09/29/16 at 09:00; Stop 09/29/16 at 18: 36; Status DC Lactated Ringer's 1,000 ml @ 50 mls/hr Q20H IV ; Start 09/29/16 at 14:57; Stop 09/30/16 at 02:56; Status DC Propofol (Diprivan) 20 ml @ As Directed STK-MED ONCE IV ; Start 09/29/16 at 16: 33; Stop 09/29/16 at 16:34; Status DC Lidocaine HCl (Lidocaine Pf 2% Vial) 5 ml STK-MED ONCE .ROUTE ; Start 09/29/16 at 16:33; Stop 09/29/16 at 16:34; Status DC Succinylcholine Chloride (Anectine) 200 mg STK-MED ONCE .ROUTE ; Start 09/29/16 at 16:33; Stop 09/29/16 at 16:34; Status DC Dexamethasone Sodium Phosphate (Decadron) 4 mg STK-MED ONCE .ROUTE ; Start 09/29 at 16:36; Stop 09/29/16 at 16:37; Status DC Ondansetron HCl (Zofran) 4 mg STK-MED ONCE .ROUTE ; Start 09/29/16 at 16:36; Stop 09/29/16 at 16:37; Status DC Iohexol (Omnipaque 300 Mg/ml) 50 ml STK-MED ONCE .ROUTE ; Start 09/29/16 at 16: 38; Stop 09/29/16 at 16:39; Status DC Iohexol (Omnipaque 300 Mg/ml) 50 ml STK-MED ONCE IV Last administered on 17:28; Start 09/29/16 at 17:28; Stop 09/29/16 at 17:32; Status DC Cefpodoxime Proxetil (Vantin) 200 mg BID PO ; Start 09/30/16 at 21:00; Stop at 21:00; Status DC Cefpodoxime Proxetil (Vantin) 200 mg BID PO Last administered on 10/01/16 22: 35; Start 10/01/16 at 09:00; Stop 10/02/16 at 10:04; Status DC Metronidazole (Flagyl) 500 mg Q8HRS PO Last administered on 10/02/16 06:23; Start 09/30/16 at 22:00; Stop 10/02/16 at 10:04; Status DC Metoprolol Succinate (Toprol Xl) 25 mg DAILY PO Last administered on 10/02/16 11:45; Start 10/01/16 at 10:30 Simvastatin (Zocor) 40 mg QHS PO Last administered on 10/02/16 21:58; Start at 21:00 Polyethylene Glycol 17 gm 17 gm PRN DAILY PRN PO CONSTIPATION Last administered on 10/02/16 21:59; Start 10/01/16 at 09:45 Magnesium Sulfate/ Dextrose 50 ml @ 25 mls/hr 1X ONCE IV Last administered on 10/01/16 11:44; Start 10/01/16 at 11:30; Stop 10/01/16 at 13:29; Status DC Piperacillin Sod/ Tazobactam Sod/ Sodium Chloride (Zosyn/Iv Sodium Chloride 0.9 % 50ml) 50 ml @ 100 mls/hr Q6HRS IV Last administered on 10/03/16 08:20; Start 10/02/16 at 12:00 Potassium Chloride (Klor-Con) 40 meq 1X ONCE PO Last administered on 15:59; Start 10/02/16 at 14:15; Stop 10/02/16 at 14:16; Status DC Active Scripts Active Reported Metoprolol Succinate ( Xl ) (Metoprolol Succinate) 25 Mg Tab.er.24h 25 Mg PO DAILY Aspirin 81 Mg Tab.chew 1 Tab PO DAILY Simvastatin 20 Mg Tablet 40 Mg PO HS Vitals/I & O Vital Sign - Last 24 Hours 10/02/16 10/02/16 10/02/16 10/02/16 11:00 11:45 15:00 19:00 Temp 97.9 98.1 97.8 97.9 98.1 97.8 Pulse 74 74 70 57 Resp B/P 125/64 125/64 108/58 111/58 Pulse Ox 98 96 95 O2 Delivery Room Air Room Air Room Air 10/02/16 10/03/16 10/03/16 10/03/16 22:34 07:00 08:00 08:22 Temp 97.7 97.7 97.7 97.7 Pulse 69 56 56 Resp B/P 131/61 105/58 105/58 Pulse Ox 94 97 O2 Delivery Room Air Room Air Room Air O2 Flow Rate 8.0 Intake and Output 10/02/16 10/02/16 10/03/16 15:00 23:00 07:00 Intake Total 200 ml Output Total 300 ml 350 ml Balance -300 ml -150 ml WARD EDDY MD Oct 03, 2016 08:48
--- NOTE | 2016-10-03 08:56 | PDOC ---
Infectious Disease Note ROS ROS GEN: Denies fevers, chills, sweats HEENT: Denies blurred vision, sore throat CV: Denies chest pain RESP: Denies shortness of air, cough GI: Denies n/v/d NEURO: Denies confusion, dizziness MSK: Denies weakness, joint pain/swelling Vital Sign Vital Signs Vital Signs Date Time Temp Pulse Resp B/P Pulse Ox O2 Delivery O2 Flow Rate FiO2 10/03/16 08:22 56 105/58 10/03/16 08:00 Room Air 8.0 10/03/16 07:00 97.7 18 97 97.7 Physical Exam PHYSICAL EXAM GENERAL: NAD, Alert HEENT: PERRL, OC/OP NECK: Supple, no JVD, no LN LUNGS: Clear HEART: S1S2, no gallop, no murmur ABD: Soft, NT, no organomegaly, no rebound EXT: No edema, no cyanosis TERRAZZO WORKER HELPER: Alert, oriented x 3, no focal neurologic deficit SKIN: No rash IV: ok Objective Assessment ? sepsis POA 09/28 Cholangitis s/p Stent 09/29 Afib Leukocytosis improved Plan Plan of Care Cont Zosyn until cults clarified. d/c vantin/Flagyl 10/02. Had been improving prior to zosyn ? true bacteremia and repeat cults neg D/w micro this am. W/u still in progress likely available 10/04 Thank you # [phone] STEVO RICHARDS MD Oct 03, 2016 08:56
--- NOTE | 2016-10-03 09:44 | PDOC ---
LATOSHA MIRAMONTES PHARMACEUTICAL OPERATOR 10/03/16 0944: CARDIO Progress Notes Date and Time Date of Service 10/03/2016 Time of Evaluation 0934 Subjective Subjective: No Chest Pain, No shortness of breath, No Palpitations, No Dizziness Vitals Vitals Vital Signs Date Time Temp Pulse Resp B/P Pulse Ox O2 Delivery O2 Flow Rate FiO2 10/03/16 08:22 56 105/58 10/03/16 08:00 Room Air 8.0 10/03/16 07:00 97.7 18 97 97.7 Weight Weight [ ] Input and Output Intake and Output Intake and Output 10/03/16 07:00 Intake Total 200 ml Output Total 650 ml Balance -450 ml Intake Oral 200 ml Output Urine Total 650 ml # Voids 4 Microbiology Micro Microbiology 10/01/16 Blood Culture - Preliminary, Resulted NO GROWTH AFTER 2 DAYS Physical Exam HEENT: Neck Supple W Full Motion Chest: Symmetric LUNGS: Clear to Auscultation Heart: S1S2, RRR, other (tele: SR with PAF/flutter) Abdomen: Soft N/T Extremities: No Edema Neurology: alert, oriented, follow commands Diagnostic Tests Echocardiogram: Normal LVEF (50-55% with mild concentric LVH), Other (mild AR; moderate MR; trace TR; PA = 15 mm Hg) Assessment Assessment 1. Obstructive jaundice and ascending cholangitis- s/p ERCP with stent placement. per GI 2. Hypertension - controlled 3. Hyperlipidemia - statins 4. atrial fib/flutter, new onset reviewed [facility] records - no history of atrial dysrhythmias rate controlled with usual BB [id number] = 2; stroke risk ~ 2% per year; OAC recommended would start Eliquis when agreeable with GI will need to f/u with usual aviation mechanic, [place]. [place], [place] [place] LISA KELSEY MD 10/04/16 0909: CARDIO Progress Notes Assessment Assessment Patient seen and examined 10/03/16. Agree with CONTROLS OPERATOR MOLDED GOODS's assessment and plan. Atrial fib/flutter rate controlled. Start oral anticoagulation when okay with GI LATOSHA MIRAMONTES PHARMACEUTICAL OPERATOR Oct 03, 2016 09:44 LISA KELSEY MD Oct 04, 2016 09:09
[2016-10-03 10:25] VITALS: BP 104/54
[2016-10-03] MEDS ORDERED: ANTI-COAG MONITOR BY PHARMACY. MC PRN (14:30)
[2016-10-03 14:55] VITALS: BP 90/46
[2016-10-03] MEDS: APIXABAN 5 MG TABLET. PO SCH ×2 (16:14→21:34)
[2016-10-03 19:00] VITALS: BP 108/48
[2016-10-03] MEDS: SIMVASTATIN 40 MG TABLET. PO SCH (21:34)
[2016-10-03 22:28] VITALS: BP 109/41
[2016-10-04] MEDS: PIPERACILLIN/TAZOBACTAM 3.375 GM in IV NORMAL SALINE 50ML 50 ML IV SCH ×3 (00:13→12:22)
--- NOTE | 2016-10-04 01:42 | CONS ---
DATE OF CONSULTATION: 10/03/2016 ROOM: 576. REQUESTING PHYSICIAN: Dr. Koehler. REASON FOR CONSULTATION: Antibiotic coverage recommendations. HISTORY OF PRESENT ILLNESS: The patient is a pleasant 75-year-old gentleman with past medical history of hypertension, hyperlipidemia who states last morning, he just finished eating some yogurt and was eating a banana when he had acute onset of abdominal pain in the middle area, had some shakes and chills, had some nausea and vomited later, had some significant weakness and presented to [facility] Emergency Room. He had a white blood cell count of 14.2 that increased to 16.6 the following day. He underwent a CT scan of abdomen and pelvis, which showed ongoing intrahepatic and extrahepatic biliary ductal dilatation, which had progressed since 2011. He subsequently underwent an ERCP and stent placement by Dr. Hunt on . Since that time, he had been improving. He was on Vantin as well as Flagyl, but then yesterday blood cultures returned positive for a strep species as well as gram-negative abbey as well as a possible pseudomonas. I was consulted yesterday. I was unable to see the patient, discontinued the Vantin and Flagyl and instituted Zosyn. He was ____ to have any procedure yesterday. Currently, he is sitting upright in bed, he feels better, he has not had any more fevers or chills or sweats. He has no gross headaches, no sinus issues, sore throat or cough. The abdominal pain is improved. He has no chest pain. He has passed his urine without signs of complications, has some flatus and his diet is advanced. He is waiting on biopsy results. PAST MEDICAL HISTORY: Positive for hypertension, hyperlipidemia, gastroesophageal reflux disease and constipation. PAST SURGICAL HISTORY: Positive for cataract surgery, cholecystectomy, appendectomy, left shoulder surgery, and hernia repair. REVIEW OF SYSTEMS: Otherwise negative. SOCIAL HISTORY: No tobacco or alcohol. FAMILY HISTORY: Noncontributory. ALLERGIES: There are no known drug allergies. SOCIAL HISTORY: He is on Zosyn, aspirin, Zocor. Other meds are available and reviewed in the chart. PHYSICAL EXAMINATION: VITAL SIGNS: He is afebrile, temperature 97.7, pulse 56, blood pressure 105/58. He is on room air satting 97%. CONSTITUTIONAL: He is very pleasant. He is cooperative. He is in no acute distress. HEENT: Pupils are status post cataract surgery. He has normal conjunctivae. Oral cavity, pharynx is clear. NECK: Supple, no JVD. LUNGS: Clear to auscultation. HEART: S1, S2. ABDOMEN: Soft, nontender, nondistended with positive bowel sounds. EXTREMITIES: No clubbing, cyanosis or gross edema. He has got chronic lower extremity venous stasis changes of his lower extremities. SKIN: Otherwise warm without signs of touch. NEUROLOGIC: He is nonfocal. PSYCHIATRIC: Affect is appropriate. LABORATORY DATA: White count 19.4 from , hemoglobin 12.9, platelets of 151, neutrophils were 75, lymphs were 14, creatinine of 1. Glucose of 108, AST is 38, ALT is 89, these are improved. Urinalysis was clean. Tox screen was negative. Radiology reviewed in history of present illness. IMPRESSION: 1. Questionable sepsis present on admission from the . 2. Cholangitis, status post stent on the . 3. Atrial fibrillation. 4. Leukocytosis has improved. PLAN: Continue Zosyn until cultures are clarified. I discontinued the vancomycin and Flagyl had been improving prior to Zosyn, questionable true bacteremia and repeat cultures are negative. RECOMMENDATIONS: For now, we will continue the Zosyn. I did discuss with microbiology this morning, his workup is still in progress, likely we will be available tomorrow. Thank you for allowing me to participate in this patient's care. If you have any questions, please do not hesitate to contact me. STEVO RICHARDS MD DR: MARIANO/nicole JOB#: [id number] / [id number]
[2016-10-04 03:01] VITALS: BP 95/43
[2016-10-04 07:00] VITALS: BP 112/58
[2016-10-04 07:07] LABS: CALCIUM 8.2 mg/dL (8.5-10.1); CREATININE 1.2 mg/dL (0.7-1.3); GFR 59.3
[2016-10-04] MEDS: APIXABAN 5 MG TABLET. PO SCH (07:56)
[2016-10-04] MEDS: METOPROLOL SUCC 24HR ER 25 MG TAB.ER.24H. PO SCH (07:56)
[2016-10-04] MEDS: ASPIRIN CHEWABLE 81 MG TABLET. PO SCH (07:57)
--- NOTE | 2016-10-04 08:03 | PDOC ---
SUBJECTIVE Subjective Feeling pretty good. Tolerating his diet. Denies any abdominal pain. Having bowel movements. Denies any shortness of breath or cough. Denies any chest pain. Ready to go home. OBJECTIVE Vital Signs Vital Signs Date Time Temp Pulse Resp B/P Pulse Ox O2 Delivery O2 Flow Rate FiO2 10/04/16 07:56 60 112/58 10/04/16 07:00 98.4 60 16 112/58 98 Room Air 98.4 10/04/16 03:01 96.9 60 20 95/43 98 Room Air 96.9 10/03/16 22:28 97.5 44 20 109/41 99 Room Air 97.5 10/03/16 20:00 Room Air 8.0 10/03/16 19:00 97.5 66 20 108/48 98 Room Air 97.5 10/03/16 14:55 97.7 54 18 90/46 98 Room Air 97.7 10/03/16 10:25 97.7 62 18 104/54 98 Room Air 97.7 10/03/16 10:19 62 105/58 I & O Intake and Output 10/04/16 07:00 Intake Total 1140 ml Balance 1140 ml Intake Oral 1140 ml # Voids 4 # Bowel Movements 1 PHYSICAL EXAM Physical Exam General: No acute distress. Laying in bed. Mental status: Alert and oriented. Chest: Clear to auscultation. Fairly good air movement CV: Normal rate. Occasional irregular beats. No murmur. Abdomen: Occasional bowel sounds. Soft. Not distended. No tenderness. No guarding. No rebound. Extremities: No lower extremity edema. ASSESSMENT/PLAN Assessment/Plan 1. Ascending cholangitis with stricture, status post stent: Continue antibiotics per infectious disease. Hopefully will be able to de-escalate to an oral antibiotic. Once he is able to be switched to oral antibiotics and he could be discharged home. 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 Await pathology. Could be gone over with patient as an outpatient. 3. Bacteremia/sepsis: antibiotics per infectious disease. 4. Paroxysmal A. fib/flutter: On anticoagulation. Had discussion regarding the different options. He'll need to follow-up with his outpatient batting machine operator at . 5. Hypertension: Running a little bit low this morning. Decrease the Toprol-XL to 12.5 mg daily. 6. Disposition: Could possibly go home today if we can change his antibiotics and depending on infectious disease and GI recommendations. We could review his pathology results as an outpatient and determine further workup at that time. Plan for possible discharge later today if okay with specialists. Problems: COMMENT Lab Laboratory Tests Test 10/04/16 06:25 Sodium Level 141mmol/L (136-145) Potassium Level 4.0mmol/L (3.5-5.1) Chloride Level 104mmol/L (98-107) Carbon Dioxide Level 28mmol/L (21-32) Anion Gap 9 (6-14) Blood Urea Nitrogen 17mg/dL (8-26) Creatinine 1.2mg/dL (0.7-1.3) Estimated GFR (Cockcroft-Gault) 59.3 Glucose Level 94mg/dL (70-99) Calcium Level 8.2mg/dL (8.5-10.1) JANAE GONGORA MD Oct 04, 2016 08:03
[2016-10-04] MEDS ORDERED: METOPROLOL SUCC 24HR ER 25 MG TAB.ER.24H. PO SCH (09:00)
[2016-10-04 11:00] VITALS: BP 112/58
--- NOTE | 2016-10-04 11:41 | PDOC ---
Infectious Disease Note Subjective Subjective Doing well and hoping to go home ROS ROS GEN: Denies fevers, chills, sweats HEENT: Denies blurred vision, sore throat CV: Denies chest pain RESP: Denies shortness of air, cough GI: Denies n/v/d NEURO: Denies confusion, dizziness MSK: Denies weakness, joint pain/swelling Vital Sign Vital Signs Vital Signs Date Time Temp Pulse Resp B/P Pulse Ox O2 Delivery O2 Flow Rate FiO2 10/04/16 08:50 60 112/58 10/04/16 07:00 98.4 16 98 Room Air 98.4 10/03/16 20:00 8.0 Physical Exam PHYSICAL EXAM GENERAL: NAD, Alert HEENT: PERRL, OC/OP NECK: Supple, no JVD, no LN LUNGS: Clear HEART: S1S2, no gallop, no murmur ABD: Soft, NT, no organomegaly, no rebound EXT: No edema, no cyanosis ASSEMBLER DRY CELL AND BATTERY: Alert, oriented x 3, no focal neurologic deficit SKIN: No rash IV: clean Labs Lab Laboratory Tests Test 10/04/16 06:25 Sodium Level 141mmol/L (136-145) Potassium Level 4.0mmol/L (3.5-5.1) Chloride Level 104mmol/L (98-107) Carbon Dioxide Level 28mmol/L (21-32) Anion Gap 9 (6-14) Blood Urea Nitrogen 17mg/dL (8-26) Creatinine 1.2mg/dL (0.7-1.3) Estimated GFR (Cockcroft-Gault) 59.3 Glucose Level 94mg/dL (70-99) Calcium Level 8.2mg/dL (8.5-10.1) Micro Viridans streptococcus group Recovered from anaerobic bottle only. BLD CULT RESULT 2 Final Klebsiella pneumoniae Recovered from aerobic bottle only. BLD CULT RESULT 3 Final Comment Pseudomonas aeruginosa Recovered from aerobic bottle only. ANTIMICROBIAL SUSCEPTIBILITY Final Comment S = Susceptible; I = Intermediate; R = Resistant P = Positive; N = Negative MICS are expressed in micrograms per mL Antibiotic RSLT#1 RSLT#2 RSLT#3 RSLT#4 Amikacin S Amoxicillin/Clavulanic Acid S Ampicillin R Cefepime S S Ceftazidime S Ceftriaxone S Cefuroxime S Cephalothin S Ciprofloxacin S S Ertapenem S Gentamicin S S Imipenem S S CONTINUED ON NEXT PAGE RUN DATE: 10/03/16 PAGE 2 RUN TIME: 1121 [facility] [address] [place] [address] William Lewis M.D., Store Stocker SPEC: [id number] PATIENT: BING ALVAREZ [id number] ( Continued) Procedure Result ANTIMICROBIAL SUSCEPTIBILITY Final (continued) Levofloxacin S S Meropenem S Nitrofurantoin S Piperacillin S S Tetracycline S Ticarcillin S Tobramycin S S Trimethoprim/Sulfa S Performed at: [facility] Objective Assessment ? sepsis POA 09/28 Cholangitis s/p Stent 09/29 Afib Leukocytosis improved Plan Plan of Care D/c home on Cipro for 8 days/cefdinir for 5 days. D/w Cardiology re STEVO Alvarado MD Oct 04, 2016 11:41
--- NOTE | 2016-10-04 13:02 | PDOC ---
G I PROGRESS NOTE Reason for Follow-up Jaundice/cholangitis S/p stent Subjective Feeling better/tolerating po/wants to go home Physical Exam Lungs clear CV S1 S2 ABD +BS, soft, nontender Review of Relevant I have reviewed the following items estephania (where applicable) has been applied. Labs Laboratory Tests Test 10/04/16 06:25 Sodium Level 141mmol/L (136-145) Potassium Level 4.0mmol/L (3.5-5.1) Chloride Level 104mmol/L (98-107) Carbon Dioxide Level 28mmol/L (21-32) Anion Gap 9 (6-14) Blood Urea Nitrogen 17mg/dL (8-26) Creatinine 1.2mg/dL (0.7-1.3) Estimated GFR (Cockcroft-Gault) 59.3 Glucose Level 94mg/dL (70-99) Calcium Level 8.2mg/dL (8.5-10.1) Laboratory Tests Test 10/04/16 06:25 Sodium Level 141mmol/L (136-145) Potassium Level 4.0mmol/L (3.5-5.1) Chloride Level 104mmol/L (98-107) Carbon Dioxide Level 28mmol/L (21-32) Anion Gap 9 (6-14) Blood Urea Nitrogen 17mg/dL (8-26) Creatinine 1.2mg/dL (0.7-1.3) Estimated GFR (Cockcroft-Gault) 59.3 Glucose Level 94mg/dL (70-99) Calcium Level 8.2mg/dL (8.5-10.1) Microbiology 10/01/16 Blood Culture - Preliminary, Resulted NO GROWTH AFTER 3 DAYS Medications Current Medications Sodium Chloride (Iv Sodium Chloride 0.9% 500ml Bag) 500 ml @ 500 mls/hr 1X ONCE IV Last administered on 09/28/16 13:13; Start 09/28/16 at 12:45; Stop at 13:44; Status DC Ondansetron HCl (Zofran) 4 mg 1X ONCE IV Last administered on 09/28/16 13:08 ; Start 09/28/16 at 12:45; Stop 09/28/16 at 12:46; Status DC Fentanyl Citrate (Fentanyl 2ml Vial) 25 mcg PRN Q15MIN PRN IV PAIN GREATER THAN 3/10 Last administered on 09/28/16 13:13; Start 09/28/16 at 12:45; Stop at 12:44; Status DC Iohexol (Omnipaque 300 Mg/ml) 60 ml 1X ONCE IV Last administered on 09/28/16 12:52; Start 09/28/16 at 12:45; Stop 09/28/16 at 12:46; Status DC Info 1 each 1 each PRN DAILY PRN MC SEE COMMENTS; Start 09/28/16 at 13:00; Stop 09/30/16 at 12:59; Status DC Metronidazole 100 ml @ 100 mls/hr Q8HRS IV Last administered on 09/30/16 14: 09; Start 09/28/16 at 22:00; Stop 09/30/16 at 16:16; Status DC Metronidazole 100 ml @ 100 mls/hr 1X ONCE IV Last administered on 09/28/16 15:14; Start 09/28/16 at 14:30; Stop 09/28/16 at 15:29; Status DC Ceftriaxone Sodium 50 ml @ 100 mls/hr 1X ONCE IV Last administered on 15:15; Start 09/28/16 at 14:30; Stop 09/28/16 at 14:59; Status DC Ceftriaxone Sodium/Sodium Chloride (Rocephin/Iv Sodium Chloride 0.9% 50ml) 50 ml @ 100 mls/hr Q24H IV Last administered on 09/30/16 16:14; Start 09/29/16 at 15:00; Stop 09/30/16 at 16:16; Status DC Ondansetron HCl (Zofran) 4 mg PRN Q8HRS PRN IV NAUSEA/VOMITING; Start 09/28/16 at 15:15; Stop 09/29/16 at 15:14; Status DC Fentanyl Citrate 50 mcg 50 mcg PRN Q1HR PRN IV PAIN; Start 09/28/16 at 15:15; Stop 09/29/16 at 15:14; Status DC Sodium Chloride (Iv Sodium Chloride 0.9% 1000ml Bag) 1,000 ml @ 100 mls/hr Q10H IV Last administered on 09/29/16 08:53; Start 09/28/16 at 15:15; Stop at 15:14; Status DC Aspirin (Children'S Aspirin) 81 mg DAILY PO Last administered on 10/04/16 07: 57; Start 09/29/16 at 09:00 Metoprolol Tartrate (Lopressor) 25 mg BID PO Last administered on 09/30/16 09: 18; Start 09/28/16 at 21:00; Stop 10/01/16 at 09:17; Status DC Simvastatin 20 mg 20 mg DAILY PO ; Start 09/29/16 at 09:00; Stop 09/29/16 at 18: 36; Status DC Lactated Ringer's 1,000 ml @ 50 mls/hr Q20H IV ; Start 09/29/16 at 14:57; Stop 09/30/16 at 02:56; Status DC Propofol (Diprivan) 20 ml @ As Directed STK-MED ONCE IV ; Start 09/29/16 at 16: 33; Stop 09/29/16 at 16:34; Status DC Lidocaine HCl (Lidocaine Pf 2% Vial) 5 ml STK-MED ONCE .ROUTE ; Start 09/29/16 at 16:33; Stop 09/29/16 at 16:34; Status DC Succinylcholine Chloride (Anectine) 200 mg STK-MED ONCE .ROUTE ; Start 09/29/16 at 16:33; Stop 09/29/16 at 16:34; Status DC Dexamethasone Sodium Phosphate (Decadron) 4 mg STK-MED ONCE .ROUTE ; Start 09/29 at 16:36; Stop 09/29/16 at 16:37; Status DC Ondansetron HCl (Zofran) 4 mg STK-MED ONCE .ROUTE ; Start 09/29/16 at 16:36; Stop 09/29/16 at 16:37; Status DC Iohexol (Omnipaque 300 Mg/ml) 50 ml STK-MED ONCE .ROUTE ; Start 09/29/16 at 16: 38; Stop 09/29/16 at 16:39; Status DC Iohexol (Omnipaque 300 Mg/ml) 50 ml STK-MED ONCE IV Last administered on 17:28; Start 09/29/16 at 17:28; Stop 09/29/16 at 17:32; Status DC Cefpodoxime Proxetil (Vantin) 200 mg BID PO ; Start 09/30/16 at 21:00; Stop at 21:00; Status DC Cefpodoxime Proxetil (Vantin) 200 mg BID PO Last administered on 10/01/16 22: 35; Start 10/01/16 at 09:00; Stop 10/02/16 at 10:04; Status DC Metronidazole (Flagyl) 500 mg Q8HRS PO Last administered on 10/02/16 06:23; Start 09/30/16 at 22:00; Stop 10/02/16 at 10:04; Status DC Metoprolol Succinate (Toprol Xl) 25 mg DAILY PO Last administered on 10/04/16 07:56; Start 10/01/16 at 10:30; Stop 10/04/16 at 08:01; Status DC Simvastatin (Zocor) 40 mg QHS PO Last administered on 10/03/16 21:34; Start at 21:00 Polyethylene Glycol 17 gm 17 gm PRN DAILY PRN PO CONSTIPATION Last administered on 10/02/16 21:59; Start 10/01/16 at 09:45 Magnesium Sulfate/ Dextrose 50 ml @ 25 mls/hr 1X ONCE IV Last administered on 10/01/16 11:44; Start 10/01/16 at 11:30; Stop 10/01/16 at 13:29; Status DC Piperacillin Sod/ Tazobactam Sod/ Sodium Chloride (Zosyn/Iv Sodium Chloride 0.9 % 50ml) 50 ml @ 100 mls/hr Q6HRS IV Last administered on 10/04/16 12:22; Start 10/02/16 at 12:00 Potassium Chloride (Klor-Con) 40 meq 1X ONCE PO Last administered on 15:59; Start 10/02/16 at 14:15; Stop 10/02/16 at 14:16; Status DC Apixaban (Eliquis) 5 mg BID PO Last administered on 10/04/16 07:56; Start at 14:30 Info (Anti-Coagulation Monitoring By Pharmacy) 1 each PRN DAILY PRN MC SEE COMMENTS; Start 10/03/16 at 14:30 Metoprolol Succinate (Toprol Xl) 12.5 mg DAILY PO Last administered on 4/19/ 17at 08:50; Start 10/04/16 at 09:00 Active Scripts Active Reported Metoprolol Succinate ( Xl ) (Metoprolol Succinate) 25 Mg Tab.er.24h 25 Mg PO DAILY Aspirin 81 Mg Tab.chew 1 Tab PO DAILY Simvastatin 20 Mg Tablet 40 Mg PO HS Vitals/I & O Vital Sign - Last 24 Hours 10/03/16 10/03/16 10/03/16 10/03/16 14:55 19:00 20:00 22:28 Temp 97.7 97.5 97.5 97.7 97.5 97.5 Pulse 54 66 44 Resp 18 20 B/P 90/46 108/48 109/41 Pulse Ox 98 98 99 O2 Delivery Room Air Room Air Room Air Room Air O2 Flow Rate 8.0 10/04/16 10/04/16 10/04/16 10/04/16 03:01 07:00 07:56 08:00 Temp 96.9 98.4 96.9 98.4 Pulse 60 60 60 Resp 20 16 B/P 95/43 112/58 112/58 Pulse Ox 98 98 O2 Delivery Room Air Room Air Room Air 10/04/16 10/04/16 08:50 11:00 Temp 98.4 98.4 Pulse 60 60 Resp 16 B/P 112/58 112/58 Pulse Ox 98 O2 Delivery Room Air Intake and Output 10/03/16 10/03/16 10/04/16 14:59 22:59 06:59 Intake Total 600 ml 240 ml 300 ml Balance 600 ml 240 ml 300 ml Problem List Problems Medical Problems: (1) Abdominal pain Status: Acute Assessment Jaundice- S/p stent , brush cytology pending, elevated CA 19-9 worrisome for malignancy, O/p EUS and potential resection advised. will arrange EUS with my office PROPNICOLÁS MCDANIEL MD Oct 04, 2016 13:02
--- NOTE | 2016-10-04 14:36 | PATHOLOGY ---
CYTOPATHOLOGY REPORT CLINICAL HISTORY: Abdominal pain, nausea/vomiting. SPECIMEN(S) RECEIVED: A.[place] rinse, Common bile duct B.Brushing, Common bile duct FINAL DIAGNOSIS: A. [place] rinse, common bile duct: Atypical cells identified likely reactive. B. Brushing, ommon bile duct: Atypical cells identified. See comment. COMMENT: There are a few atypical cells amongst many reactive ductal cells with slightly enlarged nuclei and high nuclear cytoplasmic ratio. These are not entirely diagnostic; however, we cannot rule out malignancy. This case is also reviewed by Dr. Ori Costa, cytopathologist with Pathology.. (JPM:csd; d/t: 10/04/2016) PATHOLOGIST: William Lewis M.D. REPORT ELECTRONICALLY SIGNED BY: William Lewis M.D. DATE/TIME: 10/04/2016 14:35 GROSS PATHOLOGY: A. [place] rinse, Common bile duct: The specimen is labeled "Bing [place]" and consists of a brush tip in fixative. One ThinPrep slide was prepared. B. Brushing, Common bile duct: The specimen is labeled "[place]" and consists of four fixed slides. (clt 10.02.2016) SOFTLINES SUPERVISOR(S): RAMA Cortes(ASCP), [facility] INITIAL CPT CODE(S): A; 06298 B; 12879 Professional services [place] [place] [address] Technical services performed by [facility] at [address] [place] [address], [place] [address]. PATIENT: BING LOUIS /AGE: 6 1940 (Age: 75) SEX: M PATIENT #: [id number] ALT CASE #: SPECIMEN COLLECTION DATE: 10/02/2016 SPECIMEN RECEIVED DATE: 10/02/[address] [facility] [address] [place] [address], [address] [place] [address] PHONE: [phone] DIRECTOR: Jv Gao M.D. * * * END OF REPORT * * *
[2016-10-04 15:00] VITALS: BP 121/63
--- NOTE | 2016-10-04 17:25 | DISCH ---
DISCHARGE INSTRUCTIONS Condition on Discharge Condition on Discharge: Stable Activity After Discharge Activity Instructions for Disc: Activity as tolerated Diet after Discharge Diet after Discharge: Cardiac, Low Fat Checks after Discharge Checks after discharge: Check blood press - daily Contacting the DRSantiago after DC Call your doctor for: If your condition worsens Follow-Up Follow up with: Dr Redmond 10/09 at 1:30. call office if unable to make appt Follow Up With: GI for endoscopic US per GI rec; Cardiology, JANAE Moore MD Oct 04, 2016 17:25
[2016-10-04] MEDS ORDERED: APIX5TAB PO (17:36)
[2016-10-04] MEDS ORDERED: CIPR500T94 PO (17:36)
[2016-10-04] MEDS ORDERED: METO25TA9 PO (17:36)
[2016-10-04] MEDS ORDERED: CEFD300C PO (17:36)
[2016-10-04] MEDS ORDERED: POLY17PO5 PO (17:36)
== END 2016-10-04 19:04 | disposition home or self-care (01) | DRG 871 ==
LOC: ER 10:48 → ED HOLD 15:44 → 5 SOUTH 18:40
PROVIDERS: ADMIT Family Medicine; ATTEND Family Medicine
PROC: 0F798DZ Dilation of Common Bile Duct with Intraluminal Device, Via Natural or Artificial Opening Endoscopic (ICD-10-PCS; 2016-09-29)
PROC: 0FB98ZX Excision of Common Bile Duct, Via Natural or Artificial Opening Endoscopic, Diagnostic (ICD-10-PCS; principal; 2016-09-29 17:00)
PROC: BF131ZZ Fluoroscopy of Gallbladder and Bile Ducts using Low Osmolar Contrast (ICD-10-PCS; 2016-09-29 17:00)
DX: A41.9 Sepsis, unspecified organism (principal); K83.1 Obstruction of bile duct; I48.92 Unspecified atrial flutter; K83.0 Cholangitis; D64.9 Anemia, unspecified; I48.91 Unspecified atrial fibrillation; I49.5 Sick sinus syndrome; K59.00 Constipation, unspecified; E78.5 Hyperlipidemia, unspecified; E78.00 Pure hypercholesterolemia, unspecified; D69.6 Thrombocytopenia, unspecified; I10 Essential (primary) hypertension; I48.0 Paroxysmal atrial fibrillation; I49.3 Ventricular premature depolarization; K21.9 Gastro-esophageal reflux disease without esophagitis; K57.30 Diverticulosis of large intestine without perforation or abscess without bleeding; M12.50 Traumatic arthropathy, unspecified site; Z90.49 Acquired absence of other specified parts of digestive tract; Z95.0 Presence of cardiac pacemaker
CPT/HCPCS: 36415; 74177; 74181; 74328; 80048; 80053; 81001; 82150; 83605; 83690; 83735; 84484; 85007; 85027; 86301; 87040; 87205; 88104; 88112; 93005; 93306; 96361; 96365; 96367; 96375; C1713; C1757; G0481; J0330; J0690; J0696; J2405; J2543; J2704; J3010; J3490; J7030; J7040; J7060; Q9967; 99285-25

== ENCOUNTER 2016-10-12 02:59 | Observation (INO) | payer MEDICARE ==
[2016-10-12] VITALS (10 sets, daily range): BP systolic 111–136; BP diastolic 54–83
[~2016-10-12] VITALS: Ht 177.8 cm; Wt 74.0 kg
[~2016-10-12 02:59] MED LIST: APIX5TAB PO; ASPI81TA2 PO; CEFD300C PO; CIPR500T94 PO; METO25TA4 PO; METO25TA9 PO; POLY17PO29 PO; SIMV20TA3 PO
[2016-10-12 03:39] LABS: BASO # 0.1 x10^3/uL (0.0-0.2); BASO % 1 % (0-3); EOS % 1 % (0-3); HEMATOCRIT 37.9 % (39.0-53.0); HEMOGLOBIN 12.8 g/dL (13.0-17.5); LYMPH # 0.9 x10^3/uL (1.0-4.8); LYMPH % 10 % (24-48); MEAN CORPUSCULAR HEMOGLOBIN 31 pg (25-35); MEAN CORPUSCULAR HGB CONC 34 g/dL (31-37); MEAN CORPUSCULAR VOLUME 93 fL (79-100); MONO % 8 % (0-9); NEUT % 80 % (31-73); PLATELET COUNT 216 x10^3/uL (140-400); RED BLOOD COUNT 4.08 x10^6/uL (4.30-5.70); RED CELL DISTRIBUTION WIDTH 13.3 % (11.5-14.5); WHITE BLOOD COUNT 9.4 x10^3/uL (4.0-11.0)
--- NOTE | 2016-10-12 03:45 | PHYS DOC ---
Past Medical History Past Medical History: Constipation, High Cholesterol, Hypertension, Other Additional Past Medical Histor: sick sinus syndrome? Past Surgical History: Appendectomy, Cholecystectomy, Other Additional Past Surgical Histo: left shoulder, hernia, bile stent, ruptured diaphram Alcohol Use: None Drug Use: None Adult General Chief Complaint Chief Complaint: ABDOMINAL PAIN HPI HPI Patient is a 75 year old male with recent biliary stenting who presents with mild epigastric crampy pain present over the past >12 hours. Constant, gradual in onset, nonradiating. Denies n/v, f/c, diarrhea, constipation, chest pain, dyspnea, bloody or dark stools, back pain, dysuria, hematuria. Review of Systems Review of Systems Constitutional: Denies fever or chills [] Eyes: Denies change in visual acuity, redness, or eye pain [] HENT: Denies nasal congestion or sore throat [] Respiratory: Denies cough or shortness of breath [] Cardiovascular: No additional information not addressed in HPI [] GI: Denies nausea, vomiting, bloody stools or diarrhea [] : Denies dysuria or hematuria [] Musculoskeletal: Denies back pain or joint pain [] Integument: Denies rash or skin lesions [] Neurologic: Denies headache, focal weakness or sensory changes [] Endocrine: Denies polyuria or polydipsia [] Current Medications Current Medications Current Medications Medications (Trade) Dose Ordered Sig/Soo Start Time Stop Time Status Last Admin Dose Admin Ketorolac Tromethamine (Toradol) 15 mg 1X ONCE 10/12/16 05:15 10/12/16 05:16 Allergies Allergies Allergies Coded Allergies Type Severity Reaction Last Updated Verified No Known Drug Allergies 09/29/16 No Physical Exam Physical Exam Constitutional: Well developed, well nourished, no acute distress, non-toxic appearance. [] HENT: Normocephalic, atraumatic, bilateral external ears normal, oropharynx moist, nose normal. [] Eyes: PERRLA, EOMI. [] Neck: Normal range of motion, supple. [] Cardiovascular:Heart rate regular rhythm [] Lungs & Thorax: Bilateral breath sounds clear to auscultation [] Abdomen: Bowel sounds normal, soft, minimal epigastric tenderness, no guarding or rebound. [] Skin: Warm, dry, no erythema, no rash. [] Back: No tenderness, no CVA tenderness. [] Extremities: No tenderness, ROM intact, no edema. [] Neurologic: Alert and oriented X 3, normal motor function, normal sensory function, no focal deficits noted. [] Psychologic: Affect normal, judgement normal, mood normal. [] Current Patient Data Vital Signs Vital Signs Date Time Temp Pulse Resp B/P Pulse Ox O2 Delivery O2 Flow Rate FiO2 10/12/16 04:00 88 127/59 97 Room Air 10/12/16 03:11 98.7 16 98.7 Lab Values Laboratory Tests Test 10/12/16 03:30 White Blood Count 9.4x10^3/uL (4.0-11.0) Red Blood Count 4.08x10^6/uL (4.30-5.70) L Hemoglobin 12.8g/dL (13.0-17.5) L Hematocrit 37.9% (39.0-53.0) L Mean Corpuscular Volume 93fL (79-100) Mean Corpuscular Hemoglobin 31pg (25-35) Mean Corpuscular Hemoglobin Concent 34g/dL (31-37) Red Cell Distribution Width 13.3% (11.5-14.5) Platelet Count 216x10^3/uL (140-400) Neutrophils (%) (Auto) 80% (31-73) H Lymphocytes (%) (Auto) 10% (24-48) L Monocytes (%) (Auto) 8% (0-9) Eosinophils (%) (Auto) 1% (0-3) Basophils (%) (Auto) 1% (0-3) Neutrophils # (Auto) 7.6x10^3uL (1.8-7.7) Lymphocytes # (Auto) 0.9x10^3/uL (1.0-4.8) L Monocytes # (Auto) 0.7x10^3/uL (0.0-1.1) Eosinophils # (Auto) 0.1x10^3/uL (0.0-0.7) Basophils # (Auto) 0.1x10^3/uL (0.0-0.2) Sodium Level 138mmol/L (136-145) Potassium Level 3.5mmol/L (3.5-5.1) Chloride Level 103mmol/L (98-107) Carbon Dioxide Level 28mmol/L (21-32) Anion Gap 7 (6-14) Blood Urea Nitrogen 17mg/dL (8-26) Creatinine 1.0mg/dL (0.7-1.3) Estimated GFR (Cockcroft-Gault) 73.2 BUN/Creatinine Ratio 17 (6-20) Glucose Level 108mg/dL (70-99) H Calcium Level 8.8mg/dL (8.5-10.1) Total Bilirubin 2.4mg/dL (0.2-1.0) H Aspartate Amino Transferase (AST) 611U/L (15-37) H Alanine Aminotransferase (ALT) 452U/L (16-63) H Alkaline Phosphatase 256U/L (46-116) H Total Protein 7.6g/dL (6.4-8.2) Albumin 3.4g/dL (3.4-5.0) Albumin/Globulin Ratio 0.8 (1.0-1.7) L Lipase 283U/L (73-393) Laboratory Tests 10/12/16 03:30 Laboratory Tests 10/12/16 03:30 Radiology/Procedures Radiology/Procedures CT abdomen and pelvis without contrast IMPRESSION A biliary stent is now present, and is distal end appears to protrude into the duodenum. However, ductal dilatation persists and may have worsened slightly. Electronically signed by: William Garcia (Oct 12, 2016 04:35:42) Course & Med Decision Making Course & Med Decision Making Pertinent Labs and Imaging studies reviewed. (See chart for details) His LFTs are elevated again. CT abdomen and pelvis was performed to evaluate stent position. CT results as above. Symptoms remain mild at this time. Discussed case with Dr. Hunt, gastroenterology, who recommends admission for gastroenterologic evaluation and recommends NPO until seen. Discussed case with Dr. Gomez, credit collections rep for Dr. Gongora, who will admit. [place] Disclaimer Dragon Disclaimer This electronic medical record was generated, in whole or in part, using a voice recognition dictation system. Departure Departure Impression: Primary Impression: Abdominal pain Disposition: ADMITTED INPATIENT Condition: STABLE Referrals: JANAE GONGORA MD (PCP) Problem Qualifiers Primary Impression: Abdominal pain Abdominal location: epigastric Qualified Code: R10.13 - Epigastric pain Sesar LEMA MD Oct 12, 2016 03:45
[2016-10-12 03:48] LABS: CALCIUM 8.8 mg/dL (8.5-10.1); GFR 73.2; POTASSIUM 3.5 mmol/L (3.5-5.1)
[2016-10-12 03:55] LABS: ALBUMIN 3.4 g/dL (3.4-5.0); ALBUMIN/GLOBULIN RATIO 0.8 (1.0-1.7); TOTAL BILIRUBIN 2.4 mg/dL (0.2-1.0); TOTAL PROTEIN 7.6 g/dL (6.4-8.2)
--- NOTE | 2016-10-12 04:37 | RAD ---
PROCEDURE CT abdomen and pelvis without contrast 10/12/2016. HISTORY Epigastric pain and elevated liver enzymes. Recent stent placement. TECHNIQUE Helical noncontrast images were performed. Exposure: One or more of the following individualized dose reduction techniques were utilized for this exam: 1. Automated exposure control. 2. Adjustment of the mA and/or kV according to patient size. 3. Use of iterative reconstruction technique. COMPARISON 09/28/2016. FINDINGS The lung bases are clear. There is now extensive air within the biliary tree. The bile ducts remain dilated, and if anything, appear more so. Common bile duct diameter at the pancreatic head is approximately 2.7 centimeters compared with about 2.3 centimeters by my measurement previously. A stent is now seen in the biliary tree. This appears to extend to the inferior wall of the proximal transverse duodenum, suggesting its inferior tip is beyond the ampulla. No new liver lesion is seen. Evaluation of the solid organs is limited without IV contrast. The spleen, kidneys and adrenal glands show no new abnormality. No new pancreatic or peripancreatic abnormality is seen. There is no apparent adenopathy or new soft tissue mass. No inflammatory process is seen. Images through the pelvis show no apparent abnormality of the distal ureters or bladder. No pelvic or inguinal adenopathy is seen. IMPRESSION A biliary stent is now present, and is distal end appears to protrude into the duodenum. However, ductal dilatation persists and may have worsened slightly. Electronically signed by: William Garcia (Oct 12, 2016 04:35:42)
[2016-10-12] MEDS ORDERED: ONDANSETRON PF 4 MG/2 ML VIAL. IV PRN (05:15)
[2016-10-12] MEDS ORDERED: ACETAMINOPHEN 325 MG TABLET. PO PRN (05:15)
[2016-10-12] MEDS ORDERED: KETOROLAC 15 MG/ML VIAL. IV ONE (05:15)
[2016-10-12] MEDS ORDERED: POTASSIUM CL 20MEQ D5-0.9%NACL 1,000 ML IV ONE (05:15)
[2016-10-12] MEDS ORDERED: fentaNYL PF VIAL 100 MCG/2 ML VIAL IV PRN ×3 (05:15→13:30)
--- NOTE | 2016-10-12 05:52 | ACF ---
Admit Criteria Forms Admit Criteria Forms Admit Criteria Forms ABDOMINAL PAIN Clinical Indications for Admission to Inpatient Care (Place 'X' for any and all applicable criteria): Admission is indicated for ANY ONE of the following(1)(2)(3)(4)(5): [X]I. Inpatient admission required rather than observation care (Also use Abdominal Pain: Observation Care, as appropriate) because of ANY ONE of the following: [X]a) Severe pain requiring acute inpatient management [ ]b) Identification of etiology/finding that requires inpatient care (eg, aortic dissection, free air) [ ]c) Absent bowel sounds with complete ileus(6) [ ]d) Suspected toxic megacolon [ ]e) Severe electrolyte abnormalities requiring inpatient care [ ]f) High fever or infection requiring inpatient admission as indicated by ANY ONE of following(7)(8): [ ] i) Appropriate outpatient or observational care antimicrobial treatment unavailable, not effective, or not feasible [ ] ii) Documented bacteremia [ ] iii) Temperature > 104.9 degrees F (oral) [ ] iv) T >103.1 F (oral) or < 96.8 F(rectal) that does not respond to all emergency treatment measures [ ]g) Signs of intestinal obstruction [B] [ ]h) Hemodynamic instability [ ]i) IV fluid to replace significant ongoing losses (greater than 3 L/m2 per day) (12)(13) [ ]j) Percutaneous or open drainage (eg, abscess, biliary tract ) procedures [ ]k) Parenteral nutrition regimen that must be implemented on inpatient basis [ ]l) Other condition,treatment or monitoring requiring inpatient admission. [ ]II. Peritoneal signs present [ ]III. Surgery needed that cannot be performed on an ambulatory basis. [ ]IV. Evaluation requires patient to not eat or drink for extended period ( eg, more than 24 hours). [ ]V. Contraindications and/or Inappropriate clinical situations for Observational Care in patients with abdominal pain, when ANY ONE of the following is required: [ ]a) Thorough evaluation is required to prevent catastrophic events due to delays in diagnosing (e.g.Mesenteric ischemia) 1,3 [ ]b) Patient with severe pathology or with chronic symptoms unlikely to improve in the ED stay (3) [ ]. General contraindications and/or Inappropriate clinical situations for Observational Care in patients with abdominal pain, when ANY ONE of the following is required: [ ]a) Prediction of prolongation of LOS based on ANY ONE of the following may be considered as a contraindication for observational care 2, 3, 4, 5, 6, 7, 8, 9, 10, 11 [ ]i) Age > 65 yrs. [ ]ii) Patient arriving by ambulance [ ]iii) Patient with high acuity [ ]iv) Patient requiring vital sign monitoring [ ]v) Patient on IV medication [ ]b) Systolic blood pressures 180mmHg 3,12 [ ]c) Patient with altered mental status including delirium and other alteration of consciousness, (3) [ ]d) Patient whose discharge disposition will be to a halfway home or rehabilitation home should not be managed in Emergency Department Observation Unit. CMS rule requires 3 days hospital stay before such placement.3,13 [ ]e) Patient with failure to thrive due to broad array of etiologies 3,16,17 [ ]f) Inability to ambulate 3,14 Extended stay beyond goal length of stay may be needed for(2)(3): [ ]a) Persistent abdominal pain with suspected intra-abdominal process [ ]b) Diagnosed condition requiring continued stay (e.g., pancreatitis, complicated diverticulitis) [ ]c) Surgery (e.g., colectomy) The original [employer] content created by [employer] has been revised. The portions of the content which have been revised are identified through the use of italic text or in bold, and [facility] has neither reviewed nor approved the modified material.All other unmodified content is copyright [employer]. Please see references footnoted in the original [facility] edition 2016 ALEXANDRU EDGAR Oct 12, 2016 05:52
[2016-10-12] MEDS ORDERED: DEXAMETHASONE SOD PHOS 20 MG/5 ML VIAL. ONE (06:00)
[2016-10-12] MEDS ORDERED: LIDOCAINE 2% 100 MG/5 ML SYRINGE. ONE (06:00)
[2016-10-12] MEDS ORDERED: PROPOFOL 10 MG/ML (20ML) VIAL. IV ONE (06:00)
[2016-10-12] MEDS ORDERED: ROCURONIUM 50 MG/5 ML VIAL. ONE (06:00)
[2016-10-12] MEDS ORDERED: NEOSTIGMINE METHYLSULFATE 5 MG/5 ML SYRINGE. ONE (06:00)
[2016-10-12] MEDS ORDERED: GLYCOPYRROLATE 1 MG/5 ML VIAL. ONE (06:00)
--- NOTE | 2016-10-12 08:26 | PDOC ---
Objective: Objective: Recent admission, had ERCP as below w/ path. Outpt EUS recommended as not available here. Readmitted, GI consulted for abd pain, elevated LFTs. CT as below. LFTs worse. Vital Signs: Vital Signs Date Time Temp Pulse Resp B/P Pulse Ox O2 Delivery O2 Flow Rate FiO2 10/12/16 06:25 Room Air 10/12/16 05:40 98.0 91 18 128/67 95 98.0 Labs: Laboratory Tests Test 10/12/16 03:30 White Blood Count 9.4x10^3/uL Red Blood Count 4.08x10^6/uL Hemoglobin 12.8g/dL Hematocrit 37.9% Mean Corpuscular Volume 93fL Mean Corpuscular Hemoglobin 31pg Mean Corpuscular Hemoglobin Concent 34g/dL Red Cell Distribution Width 13.3% Platelet Count 216x10^3/uL Neutrophils (%) (Auto) 80% Lymphocytes (%) (Auto) 10% Monocytes (%) (Auto) 8% Eosinophils (%) (Auto) 1% Basophils (%) (Auto) 1% Neutrophils # (Auto) 7.6x10^3uL Lymphocytes # (Auto) 0.9x10^3/uL Monocytes # (Auto) 0.7x10^3/uL Eosinophils # (Auto) 0.1x10^3/uL Basophils # (Auto) 0.1x10^3/uL Sodium Level 138mmol/L Potassium Level 3.5mmol/L Chloride Level 103mmol/L Carbon Dioxide Level 28mmol/L Anion Gap 7 Blood Urea Nitrogen 17mg/dL Creatinine 1.0mg/dL Estimated GFR (Cockcroft-Gault) 73.2 BUN/Creatinine Ratio 17 Glucose Level 108mg/dL Calcium Level 8.8mg/dL Total Bilirubin 2.4mg/dL Aspartate Amino Transf (AST/SGOT) 611U/L Alanine Aminotransferase (ALT/SGPT) 452U/L Alkaline Phosphatase 256U/L Total Protein 7.6g/dL Albumin 3.4g/dL Albumin/Globulin Ratio 0.8 Lipase 283U/L Imaging: CT abd w/o contrast 10/12/16 IMPRESSION A biliary stent is now present, and is distal end appears to protrude into the duodenum. However, ductal dilatation persists and may have worsened slightly. ERCP 09/29/16 Dilated proximal bile duct with distal stricture s/p brushing s/p 11.5 FR 13 cm stent placement. FINAL DIAGNOSIS: A. [place] rinse, common bile duct: Atypical cells identified likely reactive. B. Brushing, ommon bile duct: Atypical cells identified. See comment. COMMENT: There are a few atypical cells amongst many reactive ductal cells with slightly enlarged nuclei and high nuclear cytoplasmic ratio. These are not entirely diagnostic; however, we cannot rule out malignancy. 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 There has been slight interval increase in the intra and extrahepatic biliary ductal dilatation since the patient's previous MRCP. PE: GEN: NAD HEENT: Atraumatic, PERRL LUNGS: CTAB HEART: RRR ABD: NABS, S/ND/NT EXTREMITY: No edema SKIN: No rashes, no jaundice NEURO/PSYCH: A & O 3 SHAYAN TYSON Oct 12, 2016 08:26 NICOLÁS OBRIEN MD Oct 12, 2016 08:34
[2016-10-12] MEDS ORDERED: METOPROLOL SUCC 24HR ER 25 MG TAB.ER.24H. PO SCH (09:00)
[2016-10-12] MEDS: CIPROFLOXACIN 400MG PREMIX 200 ML IV SCH ×2 (09:24→20:17)
[2016-10-12] MEDS ORDERED: POLYETHYLENE GLYCOL 3350 17 GM PACKET. PO PRN (11:00)
--- NOTE | 2016-10-12 12:16 | HP ---
ADMIT DATE: 10/12/2016 CHIEF COMPLAINT: Abdominal pain. HISTORY OF PRESENT ILLNESS AND HOSPITAL COURSE: This patient is a 75-year-old male who was recently discharged within the last 2 weeks from [facility] after having an episode of sepsis and ascending cholangitis. He underwent EGD and ERCP discovering a biliary stricture with path report for cancer pending at this time. He did have a biliary stent placed relieving his symptoms. He was treated with p.o. antibiotics. He came back to baseline with plans for followup with GI medicine at [facility] for EGD with ERCP and sonography and possible biopsy. The patient did have a CA-129 returning high at 189 with normal around 30. The patient had recurrent abdominal pain and came to the Emergency Room for relief. He was admitted for IV fluids and pain control and GI reevaluation. The patient's liver function had increased dramatically since discharge and further evaluation was warranted at that time. The patient wanted to go re-EGD and ERCP with adjustment of stent and proceed with possible discharge so that he can follow up with GI medicine at [facility] where they do endoscopic ultrasound and possible biopsy that are not done at this hospital. PAST MEDICAL HISTORY: 1. Significant for recent bout of cholangitis and cholecystitis due to biliary stricture. 2. Hypertension. 3. High cholesterol. 4. Prediabetes. 5. Osteoarthritis. 6. Sick sinus syndrome. PAST SURGICAL HISTORY: Significant for hernia repair and removal of fatty tumor from the shoulder. FAMILY HISTORY: Significant for mother who with complications of stroke and heart disease as well as diabetes and father who with heart attack. SOCIAL HISTORY: The patient is a former smoker, quit in 1994, approximately 22 years ago. He denies alcohol use. He is and retired. ALLERGIES: The patient denies any drug allergies. REVIEW OF SYSTEMS: The patient has had jaundice and intermittent abdominal pain. PHYSICAL EXAMINATION: GENERAL: This is a well-nourished, thin male in no apparent distress. He is alert and oriented x 3. HEENT: Benign. NECK: Supple, no JVD, no bruits. CARDIAC: Regular rate and rhythm. LUNGS: Clear. ABDOMEN: Soft. Some minimal tenderness in the epigastrium at this time. He has positive bowel sounds. EXTREMITIES: 2+ pulses without significant edema. NEUROLOGIC: Showed no unilateral findings. ASSESSMENT: 1. Abdominal pain. 2. Biliary stasis with increased liver enzymes. PLAN: To proceed with GI evaluation and care and discharge to home when stable with rapid followup via [facility] for endoscopic sonography and biopsy if possible. NATALIE VALDEZ MD DR: CHRISTIANA/nicole JOB#: [id number] / [id number]
[2016-10-12] MEDS ORDERED: MIDAZOLAM HCL/PF 2 MG/2 ML VIAL. IV PRN (13:30)
[2016-10-12] MEDS ORDERED: LIDOCAINE 1% 1 ML SYRINGE. ID PRN (13:30)
[2016-10-12] MEDS: IV RINGERS,LACTATED 1000ML 1,000 ML IV SCH ×2 (13:31→21:28)
[2016-10-12] MEDS ORDERED: IOHEXOL 300 MG/ML 50 ML VIAL. ONE (14:03)
[2016-10-12] MEDS ORDERED: fentaNYL PF VIAL 100 MCG/2 ML VIAL ONE (14:26)
--- NOTE | 2016-10-12 15:15 | PDOC4 ---
Operative Note Operative Note ERCp with stent placement Meds propofol per anesthesia Pre-op dx obstructive jaundice/possible pancreatic malignancy post-op dx S/p 10 Fr 12 cm stent placement with cbd stricture Plan advance diet and release tonight with po antibiotic as before EUS as o/p tomorrow NICOLÁS OBRIEN MD Oct 12, 2016 15:15
[2016-10-12] MEDS ORDERED: IOHEXOL 300 MG/ML 50 ML VIAL. IV ONE (15:17)
--- NOTE | 2016-10-12 15:40 | RAD ---
ERCP, 10/12/2016: History: Abdominal pain 4 spot films from an ERCP performed by Dr. Hunt are presented for review. 101 seconds of fluoroscopy time was utilized. The biliary tree was partially opacified endoscopically. A new biliary stent was placed. Its upper end is projected over the common hepatic duct region. The lower end is not clearly visualized on these images.
--- NOTE | 2016-10-12 16:49 | OP ---
DATE OF SURGERY: 10/12/2016 PROCEDURE PERFORMED: Endoscopic retrograde cholangiopancreatography with stent placement. 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 POSTOPERATIVE DIAGNOSIS: Status post 10-Cymro 12 cm stent placement. DESCRIPTION OF PROCEDURE: After risks and benefits of the procedure including the risk of hemorrhage, perforation, pancreatitis were discussed with the patient and family, informed consent was obtained. The patient was then placed in the prone position after intubation. The endoscope was advanced through the esophagus, stomach, and first and second portions of duodenum. Major papilla was identified. The stent was found. It was taken out. It was found to be occluded. Then, using the taper-tip cannula, cholangiogram was performed, which revealed persistent stricture of biliary tree. A 10-Cymro 12 cm stent was then placed with no difficulty with adequate flow of bile. Fluoroscopy confirmed the placement. The scope was then straightened and withdrawn. The patient tolerated the procedure well. DISPOSITION: Resume previous diet, meds, and activity. CONDITION: Stable. IMMUNIZATIONS: Up-to-date. PLAN: We will recommend the patient be released with EUS tomorrow as an outpatient. NICOLÁS OBRIEN MD DR: MEGAN/nicole JOB#: [id number] / [id number] JANAE Barry MD
[2016-10-12] MEDS ORDERED: CIPR500T94 PO (20:48)
[2016-10-12] MEDS ORDERED: SIMVASTATIN 20 MG TABLET PO SCH (21:00)
[2016-10-12] MEDS ORDERED: NON FORMULARY ITEM (Ciprofloxacin Hcl (Cipro) 1 TAB) PO SCH (21:00)
[2016-10-12] MEDS ORDERED: CEFDINIR PO SCH (21:00)
== END 2016-10-12 22:00 | disposition home or self-care (01) ==
LOC: ER 02:59 → 4 NORTH 04:50 → INTOOBSV 04:50
PROVIDERS: ADMIT Family Medicine; ATTEND Family Medicine
DX: K83.1 Obstruction of bile duct (principal); E78.00 Pure hypercholesterolemia, unspecified; I10 Essential (primary) hypertension; Z90.49 Acquired absence of other specified parts of digestive tract; Z87.891 Personal history of nicotine dependence
CPT/HCPCS: 36415; 43276; 74150; 74328; 80053; 83690; 85027; 96365; 96366; 96375; 99285; C1713; C1757; G0378; J0744; J1100; J1885; J2704; J2710; J3010; J3490; Q9967; G0379; J7120

== ENCOUNTER 2017-07-21 16:25 | Emergency (ER) | payer MEDICARE ==
[2017-07-21 17:31] LABS: ADD MAN DIFF? NO
[2017-07-21 17:33] LABS: BASO % 1 % (0-3); EOS # 0.1 x10^3/uL (0.0-0.7); EOS % 1 % (0-3); HEMATOCRIT 36.5 % (39.0-53.0); HEMOGLOBIN 12.4 g/dL (13.0-17.5); LYMPH # 0.7 x10^3/uL (1.0-4.8); LYMPH % 15 % (24-48); MEAN CORPUSCULAR HEMOGLOBIN 31 pg (25-35); MEAN CORPUSCULAR HGB CONC 34 g/dL (31-37); MEAN CORPUSCULAR VOLUME 92 fL (79-100); MONO # 0.4 x10^3/uL (0.0-1.1); MONO % 9 % (0-9); NEUT # 3.4 x10^3uL (1.8-7.7); NEUT % 74 % (31-73); PLATELET COUNT 133 x10^3/uL (140-400); RED BLOOD COUNT 3.96 x10^6/uL (4.30-5.70); RED CELL DISTRIBUTION WIDTH 13.4 % (11.5-14.5); WHITE BLOOD COUNT 4.6 x10^3/uL (4.0-11.0)
[2017-07-21 17:45] LABS: ANION GAP 8 (6-14); BLOOD UREA NITROGEN 23 mg/dL (8-26); CALCIUM 9.4 mg/dL (8.5-10.1); CARBON DIOXIDE 29 mmol/L (21-32); CHLORIDE 102 mmol/L (98-107); CREATININE 0.9 mg/dL (0.7-1.3); GFR 82.5; GLUCOSE 104 mg/dL (70-99); SODIUM 139 mmol/L (136-145)
== END 2017-07-21 19:26 | disposition home or self-care (01) ==
LOC: ER 16:25
DX: R04.2 Hemoptysis (principal); I48.91 Unspecified atrial fibrillation; M19.90 Unspecified osteoarthritis, unspecified site; I25.10 Atherosclerotic heart disease of native coronary artery without angina pectoris; E78.00 Pure hypercholesterolemia, unspecified; I10 Essential (primary) hypertension; I49.5 Sick sinus syndrome; Z95.5 Presence of coronary angioplasty implant and graft; Z90.49 Acquired absence of other specified parts of digestive tract; Z79.02 Long term (current) use of antithrombotics/antiplatelets; Z79.82 Long term (current) use of aspirin
CPT/HCPCS: 36415; 71046; 80048; 85025; 99285-25

== ENCOUNTER → 2017-07-26 | Outpatient (CLI) | payer MEDICARE | END | disposition home or self-care (01) | LOC: KCIC 12:38 | DX: M16.12 Unilateral primary osteoarthritis, left hip (principal); M25.752 Osteophyte, left hip; G89.29 Other chronic pain | CPT/HCPCS: 73502 ==

== ENCOUNTER 2017-08-05 02:48 | Emergency (ER) | payer MEDICARE ==
[2017-08-05 03:24] LABS: ADD MAN DIFF? NO
[2017-08-05 03:26] LABS: BASO % 0 % (0-3); EOS # 0.1 x10^3/uL (0.0-0.7); EOS % 1 % (0-3); HEMATOCRIT 36.4 % (39.0-53.0); HEMOGLOBIN 12.4 g/dL (13.0-17.5); LYMPH # 0.8 x10^3/uL (1.0-4.8); LYMPH % 9 % (24-48); MEAN CORPUSCULAR HEMOGLOBIN 31 pg (25-35); MEAN CORPUSCULAR HGB CONC 34 g/dL (31-37); MEAN CORPUSCULAR VOLUME 91 fL (79-100); MONO # 0.8 x10^3/uL (0.0-1.1); MONO % 10 % (0-9); NEUT # 7.1 x10^3uL (1.8-7.7); NEUT % 81 % (31-73); PLATELET COUNT 161 x10^3/uL (140-400); RED BLOOD COUNT 3.98 x10^6/uL (4.30-5.70); RED CELL DISTRIBUTION WIDTH 13.3 % (11.5-14.5); WHITE BLOOD COUNT 8.8 x10^3/uL (4.0-11.0)
[2017-08-05 03:29] LABS: BILIRUBIN,URINE NEGATIVE (NEG); CLARITY,URINE CLOUDY; COLOR,URINE YELLOW; GLUCOSE,URINE NEGATIVE (NEG); NITRITE,URINE NEGATIVE (NEG); PROTEIN,URINE NEGATIVE (NEG-TRACE); UROBILINOGEN,URINE 0.2 mg/dL (0.2 mg/dL)
[2017-08-05 03:35] LABS: BACTERIA,URINE 0 /HPF (0-FEW); RBC,URINE RARE /HPF (0-2); SQUAMOUS EPITHELIAL CELL,UR OCC /LPF; WBC,URINE RARE /HPF (0-4)
[2017-08-05 03:38] LABS: ANION GAP 6 (6-14); BLOOD UREA NITROGEN 26 mg/dL (8-26); CALCIUM 9.1 mg/dL (8.5-10.1); CARBON DIOXIDE 31 mmol/L (21-32); CHLORIDE 99 mmol/L (98-107); CREATININE 0.8 mg/dL (0.7-1.3); GFR 94.5; GLUCOSE 123 mg/dL (70-99); POTASSIUM 4.2 mmol/L (3.5-5.1); SODIUM 136 mmol/L (136-145)
== END 2017-08-05 04:25 | disposition home or self-care (01) ==
LOC: ER 02:48
DX: R33.9 Retention of urine, unspecified (principal); M19.90 Unspecified osteoarthritis, unspecified site; E78.00 Pure hypercholesterolemia, unspecified; I25.10 Atherosclerotic heart disease of native coronary artery without angina pectoris; I10 Essential (primary) hypertension; Z90.49 Acquired absence of other specified parts of digestive tract
CPT/HCPCS: 36415; 51702; 80048; 81001; 85025; 99284-25; P9612